=== PATIENT | female | born 1930 | race Caucasian/White ===

== ENCOUNTER → 2016-08-09 | Outpatient (CLI) | payer MEDICARE, BC ==
[~2016-08-09] MED LIST: ANTASUS OR; ASPI325T PO; ATEN-100 PO; CALA240T PO; GNP50LIQ PO; LOVA1TAB47 PO; PANT40P IV; PURELAX; VALS160T4 PO
[2016-08-09 13:44] LABS: BLOOD UREA NITROGEN 13 MG/DL (7-18); GLOMERULAR FILTRATION RATE 81 ML/MIN (>89)
[2016-08-09 13:45] LABS: ALKALINE PHOSPHATASE 75 U/L (45-117); ALT (GPT) 17 U/L (10-53); AST (GOT) 6 U/L (15-37); CHLORIDE 95 MEQ/L (98-107); GLUCOSE,FASTING 98 MG/DL (74-99); POTASSIUM 4.5 MEQ/L (3.5-5.1); SODIUM (NA) 130 MEQ/L (136-145); TOTAL BILIRUBIN ADULT 0.4 MG/DL (0.2-1.0)
[2016-08-09 13:46] LABS: ANION GAP 9 MEQ/L (5-15); BICARBONATE 26.1 MEQ/L (21.0-32.0); HDL CHOLESTEROL 73.7 MG/DL (40.0-60.0); LDL CHOLESTEROL 88 MG/DL (0-99)
== END ==
LOC: ELAB 08:35
PROVIDERS: ATTEND Family Medicine
DX: E78.2 Mixed hyperlipidemia (principal)
CPT/HCPCS: 36415; 80053; 80061

== ENCOUNTER → 2016-12-29 | Outpatient (CLI) | payer MEDICARE, BC | LOC: ELAB 10:45 | PROVIDERS: ATTEND Family Medicine | DX: M79.674 Pain in right toe(s) (principal) | CPT/HCPCS: 36415; 84550 ==

== ENCOUNTER 2017-10-12 09:55 | Inpatient (IN) | payer MEDICARE, BC ==
[~2017-10-12] VITALS: Ht 154.9 cm; Wt 70.1 kg
[~2017-10-12 09:55] MED LIST changes: -PANT40P IV; +PANT40P PO
[2017-10-12 10:54] VITALS: BP 197/78; PULSE 76; RESP 18; TEMP 97.7; O2SAT 94
[2017-10-12] MEDS ORDERED: LIDOCAINE HCL 1% 20 ML VIAL ONE (11:29)
[2017-10-12 12:00] VITALS: BP 167/79; PULSE 79; RESP 17; TEMP 98.7; O2SAT 95
--- NOTE | 2017-10-12 12:02 | RADRPT ---
EXAM DATE/TIME: 10/12/2017 11:40 [facility] COMPARISON: No previous studies available for comparison. INDICATIONS : Post right side thoracentesis MEDICAL HISTORY : Carcinoma, esophageal. SURGICAL HISTORY : port from past chemotherapy for esophageal cancer ENCOUNTER: Initial ACUITY: 1 day PAIN SCORE: 0/10 LOCATION: Bilateral cranial FINDINGS: Moderate pneumothorax on the right. The lung is probably trapped and well-expanded. We'll follow with chest x-ray. CONCLUSION: Probable trapped lung on the right. Dany Arredondo MD FACR on October 12, 2017 at 11:57 Board Certified Radiologist. This report was verified electronically.
[2017-10-12 12:15] VITALS: BP 163/74; PULSE 82; RESP 18; O2SAT 96
--- NOTE | 2017-10-12 12:50 | RADRPT ---
EXAM DATE/TIME: 10/12/2017 10:46 [facility] COMPARISON: No previous studies available for comparison. EXTERNAL COMPARISON: [facility], CT Chest, Oct 10 2017. INDICATIONS : Right pleural effusion. MEDICAL HISTORY : Hypertension. Hypercholesterolemia. Malignant neoplasm of other specified part of esophagus. Heart murmur. Urinary incontinence. Osteoporosis. Degeneration of lumbosacral intervertebral disc. SURGICAL HISTORY : Appendectomy. Tonsillectomy. Fusion, cervical. Adenoidectomy. Gastrointestinal surgery. ENCOUNTER: Initial ACUITY: 1 day PAIN SCORE: 0/10 LOCATION: Right chest FLUID: Total volume of 1550 cc of clear, yellow fluid was removed. Fluid was sent to lab for ordered studies. TECHNIQUE: 1. Ultrasound guidance for thoracentesis. 2. Thoracentesis. The risks, benefits, and alternatives to ultrasound guided thoracentesis were explained to the patien t in lay simple terms, including the risk of bleeding and infection. Written and verbal informed con sent was obtained. Appropriate area for thoracentesis was marked under ultrasound guidance with the patient in the uprig ht position. Overlying skin was prepped and draped in the usual sterile fashion and with local anest hetic, a dermatotomy was made with an 11 blade scalpel. A 6 Indian thoracentesis catheter was placed in the pleural space and fluid was removed. Catheter was then removed and a sterile dressing applie d. There were no immediate complications. The patient tolerated the procedure well and the left the ultrasound suite in stable condition. Chest radiograph is to be obtained. CONCLUSION: Uncomplicated ultrasound guided thoracentesis. The right lung has not reexpanded. Decision will be made to try to re\re expansion centrally with day chest tube. Dany Arredondo MD FACR on October 12, 2017 at 12:46 Board Certified Radiologist. This report was verified electronically.
--- NOTE | 2017-10-12 15:22 | RADRPT ---
EXAM DATE/TIME: 10/12/2017 13:19 [facility] COMPARISON: CHEST EXPIRATION ONLY, October 12, 2017, 11:40. INDICATIONS : Status post right thoracentesis. MEDICAL HISTORY : Hypertension. Carcinoma, esophageal. SURGICAL HISTORY : Infuse a port placement. ENCOUNTER: Subsequent ACUITY: 1 day PAIN SCORE: 0/10 LOCATION: Right chest FINDINGS: Expiratory chest reveals an a right lung base the pleural line and large pneumothorax. This is not c hanged in 90 minutes. After long discussion the patient and Dr. Sampson plan is to place the small bore chest tube on the righ t to gradually reinflate the right lung . If the right lung does fully reexpanded we should conside r pleruodesis CONCLUSION: Large right pneumothorax as above. Dany Arredondo MD FACR on October 12, 2017 at 15:17 Board Certified Radiologist. This report was verified electronically.
[2017-10-12 19:30] VITALS: BP 161/85; PULSE 72; RESP 17; TEMP 97.3; O2SAT 92
[2017-10-12] MEDS ORDERED: ONDANSETRON HCL 4 MG/2 ML VIAL IVP PRN (19:45)
[2017-10-12] MEDS ORDERED: ACETAMINOPHEN 325 MG TAB PO PRN (19:45)
[2017-10-12] MEDS ORDERED: MORPHINE SULFATE 4 MG/ML INJ IV PUSH PRN (19:45)
[2017-10-12] MEDS ORDERED: SODIUM CHLORIDE 0.9% FLUSH 10 ML FLUSH IV FLUSH PRN (19:45)
[2017-10-12] MEDS ORDERED: NALOXONE HCL 0.4 MG/ML AMP IV PUSH PRN (19:45)
[2017-10-12] MEDS ORDERED: ACETAMINOPHEN/HYDROcodone 325 MG/5 MG TAB PO PRN (19:45)
--- NOTE | 2017-10-12 20:34 | PD.CONS ---
[facility] By Dr. Arredondo Reason for Consult Medical management Primary Care Physician aDnny Sampson MD Diagnoses: History of Present Illness 87 y/o female with a history of esophageal cancer and HTN was sent for a thoracentesis in outpatient, unfortunately she suffered a pneumothorax and required a chest tube placement. [facility] was consulted for medical management. Patient states for the last month she has been feeling lousy, somewhat short of breath. She was worked up by her PCP and found to have fluid on her lung and was sent to [facility] for a thoracentesis. Chest tube was placed and patient was admitted. Patient states her pain to the chest tube site in intermittent, stabbing, sharp, 6/10, with no radiation or associated symptoms and is worse with movement and deep breath. She just received and [place] and states is has not helped much yet. She denies any chest pain, fevers or chills. Review of Systems Except as stated in HPI: all other systems reviewed are Neg Past Family Social History Allergies: Coded Allergies: Sulfa (Sulfonamide Antibiotics) (Verified Allergy, Intermediate, 10/12/17) clindamycin (Verified Allergy, Intermediate, 10/12/17) penicillin G (Verified Allergy, Intermediate, 10/12/17) Past Medical History Chronic back pain HTN HLD GERD Past Surgical History Tonsillectomy Reported Medications Reported Meds & Active Scripts Active Reported Stool Softener (Docusate Sodium) 50 Mg/5 Ml Liq 50 Mg PO DAILY Antacid Regular Strength (Alum & Mag Hydrox-Simethicone) Reg St Ana 1 St OR [Purelax] Aspirin 325 Mg Tab 325 Mg PO DAILY Valsartan/Hydrochlorothia (Valsartan-Hydrochlorothiazide) 1 Tab Tab 1 Tab PO DAILY Protonix (Pantoprazole Sodium) 40 Mg Inj 40 Mg IV DAILY Atenolol 25 Mg Tab 25 Mg PO BID Lovastatin 20 Mg Tab 20 Mg PO HS Verapamil Hcl Er (Verapamil HCl) 240 Mg Tab 240 Mg PO DAILY Active Ordered Medications Current Medications Medications (Trade) Dose Ordered Sig/Tiffany Route Start Time Stop Time Status Last Admin (NS Flush) 2 ml UNSCH PRN IV FLUSH 10/12/17 19:45 (NS Flush) 2 ml BID IV FLUSH 10/12/17 21:00 10/12/17 21:36 (Tylenol) 650 mg Q4H PRN PO 10/12/17 19:45 (Zofran Inj) 4 mg Q6H PRN IVP 10/12/17 19:45 (Narcan Inj) 0.4 mg UNSCH PRN IV PUSH 10/12/17 19:45 (Percocet 5-325 Mg) 1 tab Q4H PRN PO 10/12/17 22:00 (Percocet 10-325 Mg) 1 tab Q4H PRN PO 10/12/17 22:00 (Morphine Inj) 2 mg Q3H PRN IV PUSH 10/12/17 22:00 Family History Mom and dad: Heart disease Social History Quit tobacco and alcohol 30 years ago Physical Exam Vital Signs Vital Signs Date Time Temp Pulse Resp B/P (MAP) Pulse Ox O2 Delivery O2 Flow Rate FiO2 10/12/17 12:15 82 18 163/74 (103) 96 10/12/17 12:00 98.7 79 17 167/79 (108) 95 10/12/17 10:54 97.7 76 18 197/78 (117) 94 Physical Exam GENERAL: This is a well-nourished, well-developed patient, in no apparent distress. SKIN: No rashes, ecchymoses or lesions. Cool and dry. HEAD: Atraumatic. Normocephalic. EYES: Pupils equal round and reactive. Extraocular motions intact. ENT: Nose without bleeding, purulent drainage or septal hematoma. Airway patent. CARDIOVASCULAR: Regular rate and rhythm without murmurs, gallops, or rubs. RESPIRATORY: Diminished right upper lobe, pigtail chest tube to 40 suction with serosanguineous fluid, no wheezes GASTROINTESTINAL: Abdomen soft, non-tender, nondistended. No hepato-splenomegaly , or palpable masses. MUSCULOSKELETAL: Extremities without clubbing, cyanosis, or edema. No joint tenderness, effusion, or edema noted. No calf tenderness. NEUROLOGICAL: Awake and alert. Motor and sensory grossly within normal limits. Normal speech. Laboratory Laboratory Tests Test 10/12/17 11:25 Pleural Fluid Total Protein 3.9 Date/Time Source Procedure Growth Status 10/12/17 11:25 Fluid Pleural Fluid Acid Fast Stain Pending Received 10/12/17 11:25 Fluid Pleural Fluid Mycobacterial Culture Pending Received Imaging Assessment and Plan Problem List: (1) Pneumothorax ICD Code: J93.9 - Pneumothorax, unspecified (2) HTN (hypertension) ICD Code: I10 - Essential (primary) hypertension (3) HLD (hyperlipidemia) ICD Code: E78.5 - Hyperlipidemia, unspecified Assessment and Plan 87 y/o female with a history of esophageal cancer and HTN was sent for a thoracentesis in outpatient, unfortunately she suffered a pneumothorax and required a chest tube placement. Pneumothorax s/p thorocentesis Chest x ray reviewed and shows a large right pneumothorax -Chest tube inserted by interventional radiology on 10/12 hooked to 40 of suction, will be managed by radiology -pain management with Percocet and IV morphine -Incentive spirometry HTN, chronic -Resume home medications, monitor vitals HLD, chronic -Resume home medications -Heart healthy diet DVT prophylaxis: SCDs Discussed Condition With Patient and RN Delma Salter Oct 12, 2017 20:34
[2017-10-12] MEDS: SODIUM CHLORIDE 0.9% FLUSH 10 ML FLUSH IV FLUSH SCH (21:36)
[2017-10-12] MEDS ORDERED: MORPHINE SULFATE 2 MG/ML SYRINGE IV PUSH PRN (22:00)
[2017-10-12] MEDS ORDERED: oxyCODONE/ACETAMINOPHEN 5 MG/325 MG TAB PO PRN (22:00)
[2017-10-12] MEDS ORDERED: oxyCODONE/ACETAMINOPHEN 10 MG/325 MG TAB PO PRN (22:00)
[2017-10-12 23:30] VITALS: BP 137/62; PULSE 66; RESP 17; TEMP 97.6; O2SAT 92
[2017-10-13] MEDS: ATENOLOL 25 MG TAB PO SCH ×3 (00:15→20:16)
[2017-10-13] MEDS: PRAVASTATIN SOD 20 MG TAB PO SCH ×2 (00:15→20:16)
[2017-10-13 03:06] VITALS: BP 170/70; PULSE 70; RESP 17; TEMP 97.5; O2SAT 92
--- NOTE | 2017-10-13 05:30 | RADRPT ---
EXAM DATE/TIME: 10/13/2017 04:16 [facility] COMPARISON: CHEST EXPIRATION ONLY, October 12, 2017, 11:40. CHEST EXPIRATION ONLY, October 12, 2017, 13:19. INDICATIONS : Evaluate pneumothorax MEDICAL HISTORY : Hypertension. Carcinoma, esophageal. SURGICAL HISTORY : Infusa port placement. ENCOUNTER: Subsequent ACUITY: 2 days PAIN SCORE: 5/10 LOCATION: Right chest FINDINGS: A right chest tube is in place with decreasing right pneumothorax. There continues to be a component at the right base as well as at the right apex. There is subsegmental atelectasis in the both bases. [id number] is in place via left subclavian approach with its tip in the superior vena cava. Ther e are no signs of tension. CONCLUSION: 1. Right chest tube placement with decreasing right pneumothorax. There are no signs of tension. Raul Cruz MD on October 13, 2017 at 5:26 Board Certified Radiologist. This report was verified electronically.
[2017-10-13 07:21] VITALS: BP 164/68; PULSE 72; RESP 17; TEMP 97.9; O2SAT 94
[2017-10-13 07:57] LABS: AUTOMATED NEUTROPHIL # 5.7 TH/MM3 (1.8-7.7); BASOPHIL # 0.1 TH/MM3 (0-0.2); BASOPHIL % 0.9 % (0.0-2.0); EOSINOPHIL # 0.1 TH/MM3 (0-0.4); EOSINOPHIL % 1.4 % (0.0-4.0); HEMATOCRIT 33.1 % (35.0-46.0); HEMOGLOBIN 11.1 GM/DL (11.6-15.3); LYMPH % 17.9 % (9.0-44.0); LYMPHOCYTE # 1.5 TH/MM3 (1.0-4.8); MEAN CELL VOLUME 89.1 FL (80.0-100.0); MEAN CORPUSCULAR HEMOGLOBIN 29.9 PG (27.0-34.0); MEAN CORPUSCULAR HGB CONC 33.6 % (32.0-36.0); MEAN PLATELET VOLUME 8.3 FL (7.0-11.0); MONO % 10.5 % (0.0-8.0); MONOCYTE # 0.9 TH/MM3 (0-0.9); NEUT % 69.3 % (16.0-70.0); PLATELET COUNT 215 TH/MM3 (150-450); RED BLOOD COUNT 3.71 MIL/MM3 (4.00-5.30); RED CELL DISTRIBUTION WIDTH 17.4 % (11.6-17.2); WHITE BLOOD COUNT 8.2 TH/MM3 (4.0-11.0)
[2017-10-13 08:15] LABS: BICARBONATE 25.1 MEQ/L (21.0-32.0); CALCIUM 8.7 MG/DL (8.5-10.1); CREATININE 0.63 MG/DL (0.50-1.00)
[2017-10-13] MEDS ORDERED: VALSARTAN HYDROCHLOROTHIAZIDE PO SCH (09:00)
[2017-10-13] MEDS: VERAPAMIL HCL 240 MG SUSTAINED RELEASE TAB PO SCH (09:05)
[2017-10-13] MEDS: SODIUM CHLORIDE 0.9% FLUSH 10 ML FLUSH IV FLUSH SCH ×2 (09:05→20:17)
--- NOTE | 2017-10-13 09:37 | RADRPT ---
EXAM DATE/TIME: 10/13/2017 08:55 [facility] COMPARISON: No previous studies available for comparison. INDICATIONS : Right sided chest tube came out. Evaluate for pneumothorax. MEDICAL HISTORY : None. : Hypertension. Carcinoma, esophageal. SURGICAL HISTORY : Infusa port placement. ENCOUNTER: Subsequent ACUITY: 2 days PAIN SCORE: 4/10 LOCATION: Right Chest. FINDINGS: 1.1 cm apical right pneumothorax. Minimal stable peripheral changes right base.. Left lung is clear . Its port in good position. CONCLUSION: Small pneumothorax on the right without chest tube. Followup chest x-ray is pending. Dany Arredondo MD FACR on October 13, 2017 at 9:34 Board Certified Radiologist. This report was verified electronically.
--- NOTE | 2017-10-13 14:23 | RADRPT ---
EXAM DATE/TIME: 10/13/2017 13:53 [facility] COMPARISON: CHEST EXPIRATION ONLY, October 13, 2017, 4:16. CHEST TUBE PLACEMENT, RIGHT, October 12, 2017, 16:39. CH EST EXPIRATION ONLY, October 12, 2017, 13:19. US GUIDED THORACENTESIS RIGHT, October 12, 2017, 10:46. C HEST EXPIRATION ONLY, October 12, 2017, 11:40. CHEST SINGLE AP, October 13, 2017, 8:55. INDICATIONS : Short of breath. MEDICAL HISTORY : None. : Hypertension. Carcinoma, esophageal. SURGICAL HISTORY : Infusa port placement. ENCOUNTER: [facility] ACUITY: 2 days PAIN SCORE: 4/10 LOCATION: Right chest FINDINGS: There is been slight interval increase in right apical pneumothorax with about 24 mm separation of ap ical pleural layers on the current exam. The there is persistent small right base infiltrate and pleu ral effusion. Contralateral left lung is stable and expanded. Left port is stable. Cardiac contours a re unchanged. CONCLUSION: Some interval increase in right pneumothorax. Gerardo Lackey MD on October 13, 2017 at 14:17 Board Certified Radiologist. This report was verified electronically.
[2017-10-13 16:00] VITALS: BP 146/59; RESP 16; TEMP 97.3; O2SAT 96
--- NOTE | 2017-10-13 16:18 | HHI.PR ---
Subjective Remarks The patien tis n bed she appears to not acute distress. She is breathing well on room air. She denies any shortness of breath or chest pain at this time. She accidentally pulled the chest tube in the morning. Says she feels good. No wheezing. No cough. No nausea vomiting no diarrhea or constipation. Objective Vitals Vital Signs Date Time Temp Pulse Resp B/P (MAP) Pulse Ox O2 Delivery O2 Flow Rate FiO2 10/13/17 14:41 91 Nasal Cannula 2.00 10/13/17 07:21 97.9 72 17 164/68 (100) 94 10/13/17 03:06 97.5 70 17 170/70 (103) 92 10/12/17 23:30 97.6 66 17 137/62 (87) 92 10/12/17 19:30 97.3 72 17 161/85 (110) 92 I/O 10/12/17 10/12/17 10/12/17 10/13/17 10/13/17 10/13/17 07:00 15:00 23:00 07:00 15:00 23:00 Intake Total 480 ml Output Total 160 ml 10 ml Balance -160 ml 470 ml Intake Oral 480 ml Output Chest Tube Drainage Total 160 ml 10 ml # Voids 4 # Bowel Movements 0 Result Diagram: 10/13/17 0712 10/13/17 0712 Imaging Last Impressions Chest X-Ray 10/13/17 0600 Signed Impressions: Service Date/Time: Friday, October 13, 2017 04:16 - CONCLUSION: 1. Right chest tube placement with decreasing right pneumothorax. There are no signs of tension. Raul Cruz MD Thoracentesis Ultrasound 10/12/17 0000 Signed Impressions: Service Date/Time: Thursday, October 12, 2017 10:46 - CONCLUSION: Uncomplicated ultrasound guided thoracentesis. The right lung has not reexpanded. Decision will be made to try to re\re expansion centrally with day chest tube. Dany Arredondo MD FACR Objective Remarks GENERAL: This is a well-nourished, well-developed patient, in no apparent distress. SKIN: No rashes, ecchymoses or lesions. Cool and dry. HEAD: Atraumatic. Normocephalic. EYES: Pupils equal round and reactive. Extraocular motions intact. ENT: Nose without bleeding, purulent drainage or septal hematoma. Airway patent. CARDIOVASCULAR: Regular rate and rhythm without murmurs, gallops, or rubs. RESPIRATORY: Diminished breath sounds right upper lobe, chest tube was accidentally removed by patient, dressing c/d/di. No wheezes GASTROINTESTINAL: Abdomen soft, non-tender, nondistended. No hepato-splenomegaly , or palpable masses. MUSCULOSKELETAL: Extremities without clubbing, cyanosis, or edema. No joint tenderness, effusion, or edema noted. No calf tenderness. NEUROLOGICAL: Awake and alert. Motor and sensory grossly within normal limits. Normal speech. A/P Problem List: (1) Pneumothorax ICD Code: J93.9 - Pneumothorax, unspecified (2) HTN (hypertension) ICD Code: I10 - Essential (primary) hypertension (3) HLD (hyperlipidemia) ICD Code: E78.5 - Hyperlipidemia, unspecified Assessment and Plan 87 y/o female with a history of esophageal cancer and HTN was sent for a thoracentesis in outpatient, unfortunately she suffered a pneumothorax and required a chest tube placement. Pneumothorax s/p thoracentesis -Chest tube was placed on 10/12 to suction, managed by radiology. However patient pulled the chest tube by mistake cdl program coordinator 10/13. CxR reviewed and findings discussed with Dr Arredondo. Dr Arredondo reevaluated patient. Discussed with Dr Arredondo. Will repast CXR later this afternoon and decide if patient needs chest tube again. If stable can DC patient per Dr Arredondo. The patient is saturating well while on room air and does not appear short of breath, she is in not acute distress at this time. -pain management with Percocet and IV morphine -Incentive spirometry HTN, chronic -Resume home medications, monitor vitals HLD, chronic -Resume home medications -Heart healthy diet DVT prophylaxis: SCDs Discussed Condition With Patient, nurse, Dr Arredondo IR DC plan poss DC if repeat CXR is stable. Dr Arredondo will call if patient is cleared for DC. Johnna Vasquez MD Oct 13, 2017 16:18
--- NOTE | 2017-10-13 16:23 | HHI.DS ---
Discharge Summary Admission Date Discharge Date: Oct 14, 2017 Admitting Diagnosis (1) Pneumothorax ICD Code: J93.9 - Pneumothorax, unspecified (2) HTN (hypertension) ICD Code: I10 - Essential (primary) hypertension (3) HLD (hyperlipidemia) ICD Code: E78.5 - Hyperlipidemia, unspecified Procedures Ct placement Brief History - From Admission 87 y/o female with a history of esophageal cancer and HTN was sent for a thoracentesis in outpatient, unfortunately she suffered a pneumothorax and required a chest tube placement. [facility] was consulted for medical management. Patient states for the last month she has been feeling lousy, somewhat short of breath. She was worked up by her PCP and found to have fluid on her lung and was sent to [facility] for a thoracentesis. Chest tube was placed and patient was admitted. Patient states her pain to the chest tube site in intermittent, stabbing, sharp, 6/10, with no radiation or associated symptoms and is worse with movement and deep breath. She just received and [place] and states is has not helped much yet. She denies any chest pain, fevers or chills. CBC/BMP: 10/13/17 0712 10/13/17 0712 Significant Findings Laboratory Tests Test 10/12/17 11:25 10/13/17 07:12 Red Blood Count 3.71 MIL/MM3 (4.00-5.30) Hemoglobin 11.1 GM/DL (11.6-15.3) Hematocrit 33.1 % (35.0-46.0) Red Cell Distribution Width 17.4 % (11.6-17.2) Monocytes (%) (Auto) 10.5 % (0.0-8.0) Potassium Level 3.1 MEQ/L (3.5-5.1) Imaging Last Impressions Chest X-Ray 10/14/17 0000 Signed Impressions: Service Date/Time: Saturday, October 14, 2017 09:53 - CONCLUSION: Pneumothorax stable. Slightly more fluid. Dany Arredondo MD FACR Thoracentesis Ultrasound 10/12/17 0000 Signed Impressions: Service Date/Time: Thursday, October 12, 2017 10:46 - CONCLUSION: Uncomplicated ultrasound guided thoracentesis. The right lung has not reexpanded. Decision will be made to try to re\re expansion centrally with day chest tube. Dany Arredondo MD FACR Chest Tube Insertion 10/12/17 0000 Signed Impressions: Service Date/Time: Thursday, October 12, 2017 16:39 - CONCLUSION: Uncomplicated chest tube placement as above. dE Hannon MD PE at Discharge GENERAL: This is a well-nourished, well-developed patient, in no apparent distress. SKIN: No rashes, ecchymoses or lesions. Cool and dry. HEAD: Atraumatic. Normocephalic. EYES: Pupils equal round and reactive. Extraocular motions intact. ENT: Nose without bleeding, purulent drainage or septal hematoma. Airway patent. CARDIOVASCULAR: Regular rate and rhythm without murmurs, gallops, or rubs. RESPIRATORY: Diminished breath sounds right upper lobe, chest tube was accidentally removed by patient, dressing c/d/di. No wheezes GASTROINTESTINAL: Abdomen soft, non-tender, nondistended. No hepato-splenomegaly , or palpable masses. MUSCULOSKELETAL: Extremities without clubbing, cyanosis, or edema. No joint tenderness, effusion, or edema noted. No calf tenderness. NEUROLOGICAL: Awake and alert. Motor and sensory grossly within normal limits. Normal speech. Pt update on day of discharge Feels much better no shortness of breath. She is saturating well on room air. Seen by Dr. Arredondo IR and a repeat chest x-ray reviewed and he cleared patient for discharge also discussed to follow-up with her primary care doctor as outpatient. Hospital Course 87 y/o female with a history of esophageal cancer and HTN was sent for a thoracentesis in outpatient, unfortunately she suffered a pneumothorax and required a chest tube placement. Pneumothorax s/p thoracentesis Chest tube was placed on 10/12 to suction, managed by radiology. However patient pulled the chest tube by mistake applied researcher 10/13. CxR reviewed and findings discussed with Dr Arredondo. Dr Arredondo reevaluated patient. Discussed with Dr Arredondo. Will repast CXR later this afternoon and decide if patient needs chest tube again. If stable can DC patient per Dr Arredondo. The patient is saturating well while on room air and does not appear short of breath, she is in not acute distress at this time. Pain management with Percocet and IV morphine Incentive spirometry HTN, chronic -Resume home medications, monitor vitals HLD, chronic Resume home medications -Heart healthy diet DVT prophylaxis: SCDs Discussed Condition With Patient, nurse, Dr Arredondo IR repeat CXR is stable. Discussed with Dr Arredondo from IR cleared the patient for discharge. Patient is saturating well on room air. Patient to follow-up with her PCP Dr. Ball. Pt Condition on Discharge: Stable Discharge Disposition: Discharge Home Discharge Time: > 30 minutes Discharge Instructions DIET: Follow Instructions for: Heart Healthy Diet Activities you can perform: Regular-No Restrictions Follow up Referrals: PCP Follow-up - 2-3 Days PCP Follow-up @ DR. RODRIGUEZ Continued Medications: Alum & Mag Hydrox-Simethicone (Antacid Regular Strength) Reg St Ana 1 ST OR Atenolol (Atenolol) 25 Mg Tab 25 MG PO BID Docusate Sodium (Stool Softener) 50 Mg/5 Ml Liq 50 MG PO DAILY Lovastatin (Lovastatin) 20 Mg Tab 20 MG PO HS Pantoprazole Sodium (Protonix) 40 Mg Inj 40 MG PO DAILY Valsartan-Hydrochlorothiazide (Valsartan/Hydrochlorothia) 1 Tab Tab 1 TAB PO DAILY, #2 Verapamil Hcl (Verapamil Hcl Er) 240 Mg Tab 240 MG PO DAILY [Purelax] () Johnna Vasquez MD Oct 13, 2017 16:23
--- NOTE | 2017-10-13 17:16 | RADRPT ---
EXAM DATE/TIME: 10/13/2017 16:51 [facility] COMPARISON: No previous studies available for comparison. INDICATIONS : Follow-up pneumothorax. MEDICAL HISTORY : Hypertension. Carcinoma, esophageal. SURGICAL HISTORY : Infusa port placement. ENCOUNTER: Subsequent ACUITY: 2 days PAIN SCORE: 0/10 LOCATION: Bilateral chest FINDINGS: There is persistence of right apical pneumothorax with slight increase from earlier exam. There is ab out 2.8 cm separation of apical pleural layers on the current study. Small right effusion and recurre nt. Left lung is grossly stable. Cardiac contour stable. CONCLUSION: Slight interval increase in size of right apical pneumothorax Gerardo Lackey MD on October 13, 2017 at 17:14 Board Certified Radiologist. This report was verified electronically.
--- NOTE | 2017-10-13 17:43 | PD.RAD ---
Radiology Note Pt has mild right chest pain. No SOB. VSS. Persistent R PTX post large volume thoracentesis. Likely sequestered lung. Will re-check in AM. Specials call is aware and will f/u. Gerardo Lackey MD Oct 13, 2017 17:43
[2017-10-13 20:15] VITALS: BP 126/56; PULSE 61; RESP 18; TEMP 97.7; O2SAT 95
[2017-10-13 23:35] VITALS: BP 145/63; PULSE 71; RESP 17; TEMP 98.1; O2SAT 96
--- NOTE | 2017-10-14 04:10 | RADRPT ---
EXAM DATE/TIME: 10/12/2017 16:39 [facility] COMPARISON: CHEST EXPIRATION ONLY, October 13, 2017, 16:51. INDICATIONS : Patient presents with right side pneumothorax in need of chest tube placement. MEDICAL HISTORY : HTN Heart murmur Esophageal cancer Hyperlipidemia SURGICAL HISTORY : Appendectomy Tonsillectomy Adenoidectomy Back surgery ENCOUNTER: Initial ACUITY: 1 day PAIN SCORE: 0/10 LOCATION: N/A FLUORO TIME: 0.5 minutes IMAGE SERIES: 0 MEDICATION(S): 1.) 100 mcg fentanyl (Sublimaze) IV DEVICE(S): 1.) 10 Frisian non-locking catheter 30CM [employer] NOTE: Patient only received fentanyl for procedure.ALEISHA FELIX MR#:[id number] Exam Dt/D esc: October 12, 2017CHEST TUBE PLACEMENT, RIGHT PROCEDURE : 1. Fluoroscopically guided chest tube placement. 2. Conscious sedation with continuous EKG and oximetry monitoring. The risks, benefits and alternatives to the procedure were explained and verbal and written consent w as obtained. The site was prepped in sterile fashion. Full sterile technique was used, including ca p, mask, sterile gloves and gown and a large sterile sheet. Hand hygiene and 2% chlorhexidine and/or betadine/alcohol prep was utilized per protocol for cutaneous antisepsis. The skin and subcutaneous tissues were infiltrated with local anesthetic solution. With fluoroscopic guidance the chest was punctured between the first and second interspace and the pr escribed catheter was placed in the lung apex. Wall suction was applied. Post procedure images demon strate satisfactory position of the tube. The catheter was sutured in place and a Percu-Stay was alida lied. Conscious sedation was performed with the prescribed dosages and duration as above in the presence of an independent trained radiology nurse to assist in the monitoring of the patient. EKG and oximetry remained stable throughout the procedure. The patient tolerated the procedure well and there were n o complications. The patient was sent to post anesthesia recovery in stable condition. CONCLUSION: Uncomplicated chest tube placement as above. Ed Hannon MD on October 14, 2017 at 4:08 Board Certified Radiologist. This report was verified electronically.
[2017-10-14 04:40] VITALS: BP 119/58; PULSE 62; RESP 16; TEMP 97.8; O2SAT 95
[2017-10-14 08:00] VITALS: BP 138/63; PULSE 68; RESP 18; TEMP 98.1; O2SAT 95
[2017-10-14] MEDS: SODIUM CHLORIDE 0.9% FLUSH 10 ML FLUSH IV FLUSH SCH (08:49)
[2017-10-14] MEDS: ATENOLOL 25 MG TAB PO SCH (08:49)
[2017-10-14] MEDS: VERAPAMIL HCL 240 MG SUSTAINED RELEASE TAB PO SCH (08:49)
--- NOTE | 2017-10-14 10:05 | RADRPT ---
EXAM DATE/TIME: 10/14/2017 09:53 [place] COMPARISON: CHEST EXPIRATION ONLY, October 13, 2017, 16:51. INDICATIONS : Short of breath MEDICAL HISTORY : Hypertension. Carcinoma, esophageal SURGICAL HISTORY : Infusa port placement ENCOUNTER: Sequela ACUITY: 3 days PAIN SCORE: 0/10 LOCATION: chest FINDINGS: Small pneumothorax is stable. Fluid is increasing slowly in the right lung as expected. The support is in good position. The heart and pulmonary vascularity are normal. Stable small right pneumothorax. Diffusion slowly increasing. Will discuss with Dr. Sampson for long-term plan for this reaccumulation. CONCLUSION: Pneumothorax stable. Slightly more fluid. Dany Arredondo MD FACR on October 14, 2017 at 9:56 Board Certified Radiologist. This report was verified electronically.
== END 2017-10-14 11:09 | disposition home or self-care (01) | DRG 201 ==
LOC: HRIP 09:55 → HRAD 09:55 → N06A 17:20 → HRAD 10-14 11:09 → N06A 10-14 11:09
PROVIDERS: ADMIT Hospitalist; ATTEND Hospitalist
PROC: 0W9930Z Drainage of Right Pleural Cavity with Drainage Device, Percutaneous Approach (ICD-10-PCS; principal; 2017-10-12)
PROC: 0W993ZZ Drainage of Right Pleural Cavity, Percutaneous Approach (ICD-10-PCS; 2017-10-12)
DX: J95.811 Postprocedural pneumothorax (principal); I10 Essential (primary) hypertension; E78.5 Hyperlipidemia, unspecified; K21.9 Gastro-esophageal reflux disease without esophagitis; G89.29 Other chronic pain; M54.9 Dorsalgia, unspecified; Y84.8 Other medical procedures as the cause of abnormal reaction of the patient, or of later complication, without mention of misadventure at the time of the procedure; Z87.891 Personal history of nicotine dependence; Z85.01 Personal history of malignant neoplasm of esophagus
CPT/HCPCS: 32555; 32557; 71045; 80048; 84157; 85025; 87015; 87116; 87206; 88112; 88305; 99152; C1729; C1769; J3010

== ENCOUNTER 2017-12-11 15:41 | Inpatient (IN) | payer MEDICARE, BC ==
[2017-12-11] VITALS (8 sets, daily range): BP systolic 159–212; BP diastolic 72–97; PULSE 80–92; RESP 14–24; TEMP 97.3–98.5; O2SAT 86–100
[~2017-12-11] VITALS: Ht 152.4 cm; Wt 43.6 kg
[~2017-12-11 15:41] MED LIST changes: -ASPI325T PO
[2017-12-11] MEDS ORDERED: LOVA20TA PO (16:26)
[2017-12-11] MEDS ORDERED: META48.53 PO (16:26)
[2017-12-11] MEDS ORDERED: PANT40TA3 PO (16:26)
[2017-12-11] MEDS ORDERED: VERA1TAB17 PO (16:26)
[2017-12-11] MEDS ORDERED: LISI10TA PO (16:26)
[2017-12-11] MEDS ORDERED: ZANT150T2 PO (16:26)
[2017-12-11] MEDS ORDERED: ATEN25TA PO (16:26)
[2017-12-11] MEDS ORDERED: CALCTAB98 PO (16:26)
--- NOTE | 2017-12-11 16:27 | PD ---
HPI Chief Complaint: Respiratory Symptoms Time Seen by Provider: 16:13 Travel History International Travel<30 days: No Contact w/Intl Traveler<30days: No Traveled to known affect area: No History of Present Illness HPI The patient is a 87-year-old female who presents to the emergency department for shortness of breath. The patient notes a history of shortness of breath over the last several months, was hospitalized in September for a pleural effusion and underwent subsequent thoracentesis. The patient states she has had increasing shortness of breath over the last several weeks, does note mild orthopnea, does sleep on a bed and in a recliner. She denies any chest pain or new cough. The patient denies any known history of congestive heart failure, COPD, or history of pulmonary embolism/DVT. She does note mild bilateral lower extremity edema over the last several weeks which she states is new. The patient does have a remote history of esophageal carcinoma, is followed by her oncologist, Dr. Marshall. She is also seen by her primary physician, Dr. Danny Sampson. Symptoms are moderate. Worse with activity. PFSH Past Medical History Arthritis: Yes Asthma: No Anxiety: Yes Depression: Yes Heart Rhythm Problems: No Cancer: Yes (esophageal) Cardiovascular Problems: Yes (elevated lipids,heart murmur) High Cholesterol: Yes Chemotherapy: Yes Chest Pain: No Congestive Heart Failure: No COPD: No Diabetes: No Endocrine: No GERD: Yes Genitourinary: No Hepatitis: No Hiatal Hernia: No Immune Disorder: No Musculoskeletal: Yes Neurologic: No Psychiatric: Yes Reproductive: No Respiratory: Yes Radiation Therapy: Yes Sleep Apnea: No Thyroid Disease: No Ulcer: No Past Surgical History Abdominal Surgery: Yes (appendectomy) AICD: No Arteriovenous Shunt: No Cardiac Surgery: No Ear Surgery: No Endocrine Surgery: No Eye Surgery: Yes (left cataract) Genitourinary Surgery: No Gynecologic Surgery: No Insulin Pump: No Joint Replacement: No Oral Surgery: No Pacemaker: No Thoracic Surgery: No Social History Tobacco Use: No Substance Use: No Allergies-Medications (Allergen,Severity, Reaction): Coded Allergies: Sulfa (Sulfonamide Antibiotics) (Verified Allergy, Intermediate, 12/11/17) clindamycin (Verified Allergy, Intermediate, 12/11/17) penicillin G (Verified Allergy, Intermediate, 12/11/17) Reported Meds & Prescriptions Reported Meds & Active Scripts Active Reported Zantac (Ranitidine HCl) 150 Mg Tab 150 Mg PO DAILY Metamucil Original Texture (Psyllium Hydrophilic Mucilloid) 3.4 Gram/7 Gram Pow 1 Scoop PO TID PRN 1 rounded TEASPOON in 8 oz of liquid at the first sign of irregularity. [Calcium] 800 Mg PO DAILY Lovastatin 20 Mg Tab 20 Mg PO HS Lisinopril-Hctz 10-12.5 Mg Tab 1 Tab PO DAILY Atenolol 25 Mg Tab 25 Mg PO BID Verapamil ER 24 HR (Verapamil HCl) 240 Mg Tab 240 Mg PO DAILY Pantoprazole (Pantoprazole Sodium) 40 Mg Tab 40 Mg PO DAILY Review of Systems Except as stated in HPI: all other systems reviewed are Neg General / Constitutional: No: Fever HENT: No: Lightheadedness Cardiovascular: Positive: Dyspnea on exertion, No: Chest Pain or Discomfort Respiratory: Positive: Shortness of Breath, No: Cough Gastrointestinal: No: Nausea, Vomiting, Abdominal Pain Musculoskeletal: Positive: Edema, No: Pain Neurologic: No: Dizziness Physical Exam Narrative GENERAL: Awake, alert, pleasant 87-year-old female who appears her stated age and is in mild respiratory distress. SKIN: Focused skin assessment warm/dry. HEAD: Atraumatic. Normocephalic. EYES: No injection or drainage. ENT: No nasal bleeding or discharge. Mucous membranes pink and moist. NECK: Trachea midline. No JVD. CARDIOVASCULAR: Regular rate and rhythm. No murmur appreciated. RESPIRATORY: No accessory muscle use. Diminished breath sounds in the right lung villalobos with crackles noted. GASTROINTESTINAL: Abdomen soft, non-tender, nondistended. No rebound tenderness. MUSCULOSKELETAL: No obvious deformities. No clubbing. No cyanosis. Bilateral lower extremity edema right greater than left. NEUROLOGICAL: Awake and alert. No obvious cranial nerve deficits. Motor grossly within normal limits. Normal speech. PSYCHIATRIC: Appropriate mood and affect; insight and judgment normal. Data Data Last Documented VS Vital Signs Date Time Temp Pulse Resp B/P (MAP) Pulse Ox O2 Delivery O2 Flow Rate FiO2 12/11/17 16:35 96 Nasal Cannula 3.00 12/11/17 16:20 91 16 196/92 (126) 12/11/17 16:08 98.5 Orders Orders Complete Blood Count With Diff (12/11/17 16:20) Comprehensive Metabolic Panel (12/11/17 16:20) B-Type Natriuretic Peptide (12/11/17 16:20) Magnesium (Mg) (12/11/17 16:20) Ckmb (Isoenzyme) Profile (12/11/17 16:20) Troponin I (12/11/17 16:20) Iv Access Insert/Monitor (12/11/17 16:20) Electrocardiogram (12/11/17 16:20) Ecg Monitoring (12/11/17 16:20) Oximetry (12/11/17 16:20) Oxygen Administration (12/11/17 16:20) Chest, Pa & Lat (12/11/17 16:20) Sodium Chloride 0.9% Flush (Ns Flush) (12/11/17 16:30) Cefepime Inj (Maxipime Inj) (12/11/17 17:30) Azithromycin Inj (Zithromax Inj) (12/11/17 17:30) Potassium Chloride (Kcl) (12/11/17 17:45) Aspirin Chew (Aspirin Chew) (12/11/17 17:45) Furosemide Inj (Lasix Inj) (12/11/17 17:45) Comprehensive Metabolic Panel (12/12/17 06:00) Free Thyroxine (T4) (12/12/17 06:00) Hemoglobin (Hgb) A1c (12/12/17 06:00) Magnesium (Mg) (12/12/17 06:00) Phosphorus (Po4) (12/12/17 06:00) Thyroid Stimulating Hormone (12/12/17 06:00) Complete Blood Count With Diff (12/12/17 06:00) Clonidine (Catapres) (12/11/17 18:15) Admit To Inpatient (12/11/17 ) Code Status (12/11/17 18:02) Vital Signs (Adult) Q4H (12/11/17 18:02) Neuro Checks Q4H (12/11/17 18:02) Activity Oob With Assistance (12/11/17 18:02) Tumbling Barrel Painter / Telemetry .CONTINUOUS (12/11/17 18:02) Intake + Output RAYNE.QSHIFT (12/11/17 18:02) Diet Heart Healthy (12/11/17 Dinner) Sodium Chloride 0.9% Flush (Ns Flush) (12/11/17 18:15) Sodium Chloride 0.9% Flush (Ns Flush) (12/11/17 21:00) Acetaminophen (Tylenol) (12/11/17 18:15) Ondansetron Inj (Zofran Inj) (12/11/17 18:15) Metoclopramide Inj (Reglan Inj) (12/11/17 18:15) Creatine Kinase (Cpk) (12/11/17 18:02) Creatine Kinase (Cpk) (12/12/17 00:02) Creatine Kinase (Cpk) (12/12/17 06:02) Troponin I (12/11/17 18:02) Troponin I (12/12/17 00:02) Troponin I (12/12/17 06:02) Electrocardiogram (12/11/17 18:02) Electrocardiogram (12/12/17 00:02) Resp Oxygen Jose Armando C Titrat 1-4 L (12/11/17 ) Pt Request For Service (12/11/17 18:02) Ot Request For Service (12/11/17 18:02) Case Management Consult (12/11/17 18:02) Enoxaparin Inj (Lovenox Inj) (12/11/17 18:15) Scd Bilateral/Knee High RAYNE.BID (12/11/17 18:02) Bijan Bilateral/Knee High RAYNE.QSHIFT (12/11/17 18:15) Acetaminophen (Tylenol) (12/11/17 18:15) Oxycodone-Acetamin 5-325 Mg (Percocet (12/11/17 18:15) Oxycodone-Acetamin 10-325 Mg (Percocet 1 (12/11/17 18:15) Morphine Inj (Morphine Inj) (12/11/17 18:15) Morphine Inj (Morphine Inj) (12/11/17 18:15) Morphine Inj (Morphine Inj) (12/11/17 18:15) Naloxone Inj (Narcan Inj) (12/11/17 18:15) Docusate Sodium-Senna (Mary-Colace) (12/11/17 21:00) Magnesium Hydroxide Liq (Milk Of Magnesi (12/11/17 18:15) Sennosides (Senokot) (12/11/17 18:15) Bisacodyl Supp (Dulcolax Supp) (12/11/17 18:15) Lactulose Liq (Lactulose Liq) (12/11/17 18:15) Sodium Chloride 0.9% Flush (Ns Flush) (12/11/17 18:15) Sodium Chloride 0.9% Flush (Ns Flush) (12/11/17 21:00) Cefepime Inj (Maxipime Inj) (12/12/17 00:15) Azithromycin Inj (Zithromax Inj) (12/12/17 16:15) Albuterol-Ipratropium Neb (Duoneb Neb) (12/11/17 22:00) Albuterol-Ipratropium Neb (Duoneb Neb) (12/11/17 18:15) Resp Oxygen Jose Armando C Titrat 1-4 L (12/11/17 ) Resp Incentive Spirometry (12/11/17 ) Consult Pulmonology (12/11/17 ) Sputum Culture And Gram Stain (12/11/17 18:02) Blood Culture (12/11/17 18:02) Inpatient Certification (12/11/17 ) Echo 2d Comp With Doppler (12/11/17 ) Guaifenesin Er (Mucinex Er) (12/11/17 21:00) Consult Cardiology (12/11/17 ) Furosemide Inj (Lasix Inj) (12/12/17 09:00) Potassium Chloride (Kcl) (12/11/17 18:15) Potassium Chloride (Kcl) (12/11/17 21:00) Atenolol (Tenormin) (12/11/17 21:00) Pravastatin (Pravachol) (12/11/17 21:00) Pantoprazole (Protonix) (12/12/17 09:00) Verapamil Sr (Isoptin Sr) (12/12/17 09:00) (Nf) Lisinopril-Hctz (12/12/17 09:00) (Nf) Psyllium Powder (Metamucil Original (12/11/17 18:15) (Nf) Ranitidine (Zantac) (12/12/17 09:00) (Hub Use Only)Inp Phy Cons/Ref (12/11/17 ) (Hub Use Only)Inp Phy Cons/Ref (12/11/17 ) Labs Laboratory Tests Test 12/11/17 16:55 White Blood Count 8.4 TH/MM3 Red Blood Count 3.36 MIL/MM3 Hemoglobin 10.3 GM/DL Hematocrit 29.7 % Mean Corpuscular Volume 88.5 FL Mean Corpuscular Hemoglobin 30.7 PG Mean Corpuscular Hemoglobin Concent 34.8 % Red Cell Distribution Width 15.6 % Platelet Count 295 TH/MM3 Mean Platelet Volume 7.9 FL Neutrophils (%) (Auto) 83.6 % Lymphocytes (%) (Auto) 6.6 % Monocytes (%) (Auto) 9.3 % Eosinophils (%) (Auto) 0.0 % Basophils (%) (Auto) 0.5 % Neutrophils # (Auto) 7.0 TH/MM3 Lymphocytes # (Auto) 0.6 TH/MM3 Monocytes # (Auto) 0.8 TH/MM3 Eosinophils # (Auto) 0.0 TH/MM3 Basophils # (Auto) 0.0 TH/MM3 CBC Comment DIFF FINAL Differential Comment Blood Urea Nitrogen 16 MG/DL Creatinine 0.64 MG/DL Random Glucose 125 MG/DL Total Protein 7.3 GM/DL Albumin 3.2 GM/DL Calcium Level 8.8 MG/DL Magnesium Level 2.0 MG/DL Alkaline Phosphatase 95 U/L Aspartate Amino Transf (AST/SGOT) 8 U/L Alanine Aminotransferase (ALT/SGPT) 12 U/L Total Bilirubin 0.7 MG/DL Sodium Level 134 MEQ/L Potassium Level 3.1 MEQ/L Chloride Level 97 MEQ/L Carbon Dioxide Level 23.6 MEQ/L Anion Gap 13 MEQ/L Estimat Glomerular Filtration Rate 88 ML/MIN Total Creatine Kinase 43 U/L Troponin I 0.13 NG/ML B-Type Natriuretic Peptide 2735 PG/ML [facility] Medical Decision Making Medical Screen Exam Complete: Yes Emergency Medical Condition: Yes Medical Record Reviewed: Yes Interpretation(s) EKG reveals normal sinus rhythm with a rate of. Left ventricular hypertrophy by voltage criteria. ST-T wave changes noted in lead V5, V6, I, and aVL. Last Impressions Chest X-Ray 12/11/17 1620 Signed Impressions: CONCLUSION: 1. Diffuse interstitial prominence, right pleural effusion and right lower lob e airspace disease characteristic of pulmonary congestion. 2. Left-sided Lznlyy-d-Vgsw. 3. Status post lower thoracic kyphoplasty. Laboratory Tests Test 12/11/17 16:55 White Blood Count 8.4 TH/MM3 Red Blood Count 3.36 MIL/MM3 Hemoglobin 10.3 GM/DL Hematocrit 29.7 % Mean Corpuscular Volume 88.5 FL Mean Corpuscular Hemoglobin 30.7 PG Mean Corpuscular Hemoglobin Concent 34.8 % Red Cell Distribution Width 15.6 % Platelet Count 295 TH/MM3 Mean Platelet Volume 7.9 FL Neutrophils (%) (Auto) 83.6 % Lymphocytes (%) (Auto) 6.6 % Monocytes (%) (Auto) 9.3 % Eosinophils (%) (Auto) 0.0 % Basophils (%) (Auto) 0.5 % Neutrophils # (Auto) 7.0 TH/MM3 Lymphocytes # (Auto) 0.6 TH/MM3 Monocytes # (Auto) 0.8 TH/MM3 Eosinophils # (Auto) 0.0 TH/MM3 Basophils # (Auto) 0.0 TH/MM3 CBC Comment DIFF FINAL Differential Comment Blood Urea Nitrogen 16 MG/DL Creatinine 0.64 MG/DL Random Glucose 125 MG/DL Total Protein 7.3 GM/DL Albumin 3.2 GM/DL Calcium Level 8.8 MG/DL Magnesium Level 2.0 MG/DL Alkaline Phosphatase 95 U/L Aspartate Amino Transf (AST/SGOT) 8 U/L Alanine Aminotransferase (ALT/SGPT) 12 U/L Total Bilirubin 0.7 MG/DL Sodium Level 134 MEQ/L Potassium Level 3.1 MEQ/L Chloride Level 97 MEQ/L Carbon Dioxide Level 23.6 MEQ/L Anion Gap 13 MEQ/L Estimat Glomerular Filtration Rate 88 ML/MIN Total Creatine Kinase 43 U/L Troponin I 0.13 NG/ML B-Type Natriuretic Peptide 2735 PG/ML Differential Diagnosis Differential diagnosis includes pleural effusion, malignant pleural effusion, congestive heart failure, cardia myopathy, acute coronary syndrome, pneumonia, hypoxia, pneumothorax. Narrative Course IV was established, labs are drawn and sent, and the patient was placed on cardiac telemetry monitoring and continuous pulse oximetry monitoring. EKG was ordered and interpreted. Chest x-ray was obtained. The patient's chest x-ray reveals pulmonary congestion and right pleural effusion, also could be atypical pneumonia with parapneumonic effusion. Therefore, the patient was administered cefepime and Zithromax to cover for possible healthcare acquired pneumonia she was admitted in September. However, it appears the patient most likely has new onset congestive heart failure with lower extremity edema, pleural effusion, troponin is 0.13, BNP greater than 2000. The patient was administered aspirin 162 mg orally and Lasix 20 mg intravenously. The patient's primary physician is Dr. Sampson, [facility]. The patient is hypoxic, 85% on room air, will require oxygen via nasal cannula to keep her oxygen saturation greater than 90%. Physician Communication Physician Communication The on-call medical service was paged for admission. I discussed the patient with Dr. Dia who agrees with admission. Diagnosis Primary Impression: New onset of congestive heart failure Additional Impression: Hypoxia Admitting Information Admitting Physician Requests: Admit Condition: Stable Vincent Méndez MD Dec 11, 2017 16:27
[2017-12-11] MEDS ORDERED: SODIUM CHLORIDE 0.9% FLUSH 10 ML FLUSH IVF PRN (16:30)
[2017-12-11 17:10] LABS: BASOPHIL % 0.5 % (0.0-2.0); HEMATOCRIT 29.7 % (35.0-46.0); HEMOGLOBIN 10.3 GM/DL (11.6-15.3); LYMPH % 6.6 % (9.0-44.0); LYMPHOCYTE # 0.6 TH/MM3 (1.0-4.8); MEAN CELL VOLUME 88.5 FL (80.0-100.0); MEAN CORPUSCULAR HEMOGLOBIN 30.7 PG (27.0-34.0); MEAN CORPUSCULAR HGB CONC 34.8 % (32.0-36.0); MEAN PLATELET VOLUME 7.9 FL (7.0-11.0); MONO % 9.3 % (0.0-8.0); MONOCYTE # 0.8 TH/MM3 (0-0.9); NEUT % 83.6 % (16.0-70.0); PLATELET COUNT 295 TH/MM3 (150-450); RED BLOOD COUNT 3.36 MIL/MM3 (4.00-5.30); RED CELL DISTRIBUTION WIDTH 15.6 % (11.6-17.2); WHITE BLOOD COUNT 8.4 TH/MM3 (4.0-11.0)
[2017-12-11] MEDS ORDERED: CEFEPIME INJ 2,000 MG in SODIUM CHLORIDE 0.9% INJ 100 ML IV ONE (17:30)
[2017-12-11] MEDS: AZITHROMYCIN INJ 500 MG in SODIUM CHLOR 0.9% 250 ML INJ 250 ML IV ONE ×2 (17:30→18:30)
[2017-12-11 17:31] LABS: ALBUMIN 3.2 GM/DL (3.4-5.0); AST (GOT) 8 U/L (15-37); BICARBONATE 23.6 MEQ/L (21.0-32.0); BLOOD UREA NITROGEN 16 MG/DL (7-18); CALCIUM 8.8 MG/DL (8.5-10.1); CHLORIDE 97 MEQ/L (98-107); CREATININE 0.64 MG/DL (0.50-1.00); GLOMERULAR FILTRATION RATE 88 ML/MIN (>89); GLUCOSE,RANDOM 125 MG/DL (74-106); SODIUM (NA) 134 MEQ/L (136-145)
[2017-12-11 17:36] LABS: ALKALINE PHOSPHATASE 95 U/L (45-117); ALT (GPT) 12 U/L (10-53); TOTAL BILIRUBIN ADULT 0.7 MG/DL (0.2-1.0); TOTAL PROTEIN 7.3 GM/DL (6.4-8.2); TROPONIN I 0.13 NG/ML (0.02-0.05)
--- NOTE | 2017-12-11 17:38 | RADRPT ---
EXAM DATE: 12/11/2017 5:14 PM EDT AGE/SEX: 87 years / Female INDICATIONS: Short of breath. CLINICAL DATA: This is the patient's initial encounter. Patient reports that signs and symptoms have been present for 1 month and indicates a pain score of 0/10. MEDICAL/SURGICAL HISTORY: Chronic obstructive pulmonary disease. Hypertension. None. COMPARISON: No prior exams available for comparison. FINDINGS: Diffuse interstitial prominence is noted. There is a small to moderate right pleural effusion. Consol idating airspace disease is identified in the right lung base. Heart is mildly enlarged. Left-sided Xgnmdp-v-Sydw catheter is in place. Bone cement is identified within a lower thoracic vertebral body characteristic of previous augmentat ion. CONCLUSION: 1. Diffuse interstitial prominence, right pleural effusion and right lower lobe airspace disease danika racteristic of pulmonary congestion. 2. Left-sided Kroyba-q-Rbzl. 3. Status post lower thoracic kyphoplasty. Electronically signed by: Pio Gutierres MD 12/11/2017 5:36 PM EDT
[2017-12-11] MEDS ORDERED: POTASSIUM CHLORIDE 20 MEQ CONTROLLED RELEASE TAB PO ONE ×2 (17:45→18:15)
[2017-12-11] MEDS ORDERED: FUROSEMIDE 20 MG/2 ML VIAL IV PUSH ONE (17:45)
[2017-12-11] MEDS ORDERED: ASPIRIN 81 MG CHEW TAB CHEW ONE (17:45)
[2017-12-11] MEDS ORDERED: LACTULOSE SYRUP 20 GM/30 ML CUP PO PRN (18:15)
[2017-12-11] MEDS ORDERED: MAGNESIUM HYDROXIDE SUSP 30 ML CUP PO PRN (18:15)
[2017-12-11] MEDS ORDERED: oxyCODONE/ACETAMINOPHEN 10 MG/325 MG TAB PO PRN (18:15)
[2017-12-11] MEDS ORDERED: ACETAMINOPHEN 325 MG TAB PO PRN ×2 (18:15)
[2017-12-11] MEDS ORDERED: RESP: ALBUTEROL 2.5 MG/IPRATROPIUM 0.5 MG NEB (PRN) INH (18:15)
[2017-12-11] MEDS ORDERED: SENNOSIDES 8.6 MG TAB PO PRN (18:15)
[2017-12-11] MEDS ORDERED: NALOXONE HCL 0.4 MG/ML AMP IV PUSH PRN (18:15)
[2017-12-11] MEDS ORDERED: MORPHINE SULFATE 4 MG/ML INJ IV PUSH PRN ×3 (18:15)
[2017-12-11] MEDS ORDERED: SODIUM CHLORIDE 0.9% FLUSH 10 ML FLUSH IV FLUSH PRN ×2 (18:15)
[2017-12-11] MEDS ORDERED: BISACODYL 10 MG SUPP RECTAL PRN (18:15)
[2017-12-11] MEDS ORDERED: METOCLOPRAMIDE HCL 10 MG/2 ML VIAL IV PUSH PRN (18:15)
[2017-12-11] MEDS ORDERED: oxyCODONE/ACETAMINOPHEN 5 MG/325 MG TAB PO PRN (18:15)
[2017-12-11] MEDS ORDERED: ONDANSETRON ODT 4 MG TAB PO PRN (18:45)
--- NOTE | 2017-12-11 19:58 | HHI.HP ---
[facility] Danny Sam[facility] MD Admission Diagnosis New onset congestive heart failure, hypoxia, pleural effusion Diagnoses: Travel History International Travel<30 Days: No Contact w/Intl Traveler <30 Da: No Traveled to Known Affected Are: No History of Present Illness 87-year-old female with a past medical history significant for esophageal cancer , recent pleural effusion status post thoracentesis requiring chest tube placement secondary to pneumothorax, hypertension and GERD presents the emergency department for the evaluation of a 25 pound weight loss and increasing shortness of breath. The patient reports she has had anorexia and suffered a 25 pound weight loss over the past 1.5 months. She states she has had increasingly worsening shortness of breath 2 weeks and accompanying fatigue /weakness. She was seen by her PCP 1.5 weeks ago but was not given any new diagnosis. She has had new bilateral lower extremity edema over the past 2 weeks. She denies any chest pain. No abdominal pain. No nausea/vomiting/ diarrhea. No lateralizing signs/symptoms. Review of Systems Except as stated in HPI: all other systems reviewed are Neg Past Family Social History Past Medical History esophageal cancer, recent pleural effusion status post thoracentesis requiring chest tube placement secondary to pneumothorax, hypertension and GERD Past Surgical History Tonsillectomy Port placement Reported Medications Reported Meds & Active Scripts Active Reported Zantac (Ranitidine HCl) 150 Mg Tab 150 Mg PO DAILY Metamucil Original Texture (Psyllium Hydrophilic Mucilloid) 3.4 Gram/7 Gram Pow 1 Scoop PO TID PRN 1 rounded TEASPOON in 8 oz of liquid at the first sign of irregularity. [Calcium] 800 Mg PO DAILY Lovastatin 20 Mg Tab 20 Mg PO HS Lisinopril-Hctz 10-12.5 Mg Tab 1 Tab PO DAILY Atenolol 25 Mg Tab 25 Mg PO BID Verapamil ER 24 HR (Verapamil HCl) 240 Mg Tab 240 Mg PO DAILY Pantoprazole (Pantoprazole Sodium) 40 Mg Tab 40 Mg PO DAILY Allergies: Coded Allergies: Sulfa (Sulfonamide Antibiotics) (Verified Allergy, Intermediate, 12/11/17) clindamycin (Verified Allergy, Intermediate, 12/11/17) penicillin G (Verified Allergy, Intermediate, 12/11/17) Family History Mother with CAD Social History Remote history of tobacco. Denies alcohol and illicit drugs. Physical Exam Vital Signs Vital Signs Date Time Temp Pulse Resp B/P (MAP) Pulse Ox O2 Delivery O2 Flow Rate FiO2 12/11/17 19:13 12/11/17 18:40 85 14 173/73 (106) 96 Room Air 4.00 12/11/17 16:35 96 Nasal Cannula 3.00 12/11/17 16:20 91 16 196/92 (126) 95 Room Air 4.00 12/11/17 16:08 98.5 87 24 212/97 (135) 86 Physical Exam GENERAL: female sitting up in bed SKIN: No rashes, ecchymoses or lesions. Cool and dry. HEAD: Atraumatic. Normocephalic. No temporal or scalp tenderness. EYES: Pupils equal round and reactive. Extraocular motions intact. No scleral icterus. No injection or drainage. ENT: Nose without bleeding, purulent drainage or septal hematoma. Throat without erythema, tonsillar hypertrophy or exudate. Uvula midline. Airway patent. NECK: Trachea midline. No JVD or lymphadenopathy. Supple, nontender, no meningeal signs. CARDIOVASCULAR: Regular rate and rhythm without murmurs, gallops, or rubs. RESPIRATORY: Bilateral wheezes. Diminished breath sounds in the right lower lung with crackles. GASTROINTESTINAL: Abdomen soft, non-tender, nondistended. No hepato-splenomegaly , or palpable masses. No guarding. MUSCULOSKELETAL: 2+ pitting edema of the bilateral lower extremities NEUROLOGICAL: Awake and alert. Cranial nerves II through XII intact. Motor and sensory grossly within normal limits. Normal speech. Laboratory Laboratory Tests Test 12/11/17 16:55 White Blood Count 8.4 Red Blood Count 3.36 Hemoglobin 10.3 Hematocrit 29.7 Mean Corpuscular Volume 88.5 Mean Corpuscular Hemoglobin 30.7 Mean Corpuscular Hemoglobin Concent 34.8 Red Cell Distribution Width 15.6 Platelet Count 295 Mean Platelet Volume 7.9 Neutrophils (%) (Auto) 83.6 Lymphocytes (%) (Auto) 6.6 Monocytes (%) (Auto) 9.3 Eosinophils (%) (Auto) 0.0 Basophils (%) (Auto) 0.5 Neutrophils # (Auto) 7.0 Lymphocytes # (Auto) 0.6 Monocytes # (Auto) 0.8 Eosinophils # (Auto) 0.0 Basophils # (Auto) 0.0 CBC Comment DIFF FINAL Differential Comment Blood Urea Nitrogen 16 Creatinine 0.64 Random Glucose 125 Total Protein 7.3 Albumin 3.2 Calcium Level 8.8 Magnesium Level 2.0 Alkaline Phosphatase 95 Aspartate Amino Transf (AST/SGOT) 8 Alanine Aminotransferase (ALT/SGPT) 12 Total Bilirubin 0.7 Sodium Level 134 Potassium Level 3.1 Chloride Level 97 Carbon Dioxide Level 23.6 Anion Gap 13 Estimat Glomerular Filtration Rate 88 Total Creatine Kinase 43 Troponin I 0.13 B-Type Natriuretic Peptide 2735 Date/Time Source Procedure Growth Status 12/11/17 19:00 Blood Peripheral Aerobic Blood Culture Pending Received 12/11/17 19:00 Blood Peripheral Anaerobic Blood Culture Pending Received Result Diagram: 12/11/175 12/11/17 165 Caprini VTE Risk Assessment Caprini VTE Risk Assessment: Mod/High Risk (score >= 2) Caprini Risk Assessment Model Point Value = 1 Point Value = 2 Point Value = 3 Point Value = 5 Age 41-60 Minor surgery BMI > 25 kg/m2 Swollen legs Varicose veins or History of unexplained or recurrent spontaneous Oral contraceptives or hormone replacement Sepsis (< 1 month) Serious lung disease, including pneumonia (< 1 month) Abnormal pulmonary function Acute myocardial infarction Congestive heart failure (< 1 month) History of inflammatory bowel disease Medical patient at bed rest Age 61-74 Arthroscopic surgery Major open surgery (> 45 min) Laparoscopic surgery (> 45 min) Malignancy Confined to bed (> 72 hours) Immobilizing plaster cast Central venous access Age >= 75 History of VTE Family history of VTE Factor V Leiden Prothrombin [id number] Lupus anticoagulant Anticardiolipin antibodies Elevated serum homocysteine Heparin-induced thrombocytopenia Other congenital or acquired thrombophilia Stroke (< 1 month) Elective arthroplasty Hip, pelvis, or leg fracture Acute spinal cord injury (< 1 month) Prophylaxis Regimen Total Risk Factor Score Risk Level Prophylaxis Regimen 0-1 Low Early ambulation 2 Moderate Order ONE of the following: *Sequential Compression Device (SCD) *Heparin 5000 units SQ BID 3-4 Higher Order ONE of the following medications: *Heparin 5000 units SQ TID *Enoxaparin/Lovenox 40 mg SQ daily (WT < 150 kg, CrCl > 30 mL/min) *Enoxaparin/Lovenox 30 mg SQ daily (WT < 150 kg, CrCl > 10-29 mL/min) *Enoxaparin/Lovenox 30 mg SQ BID (WT < 150 kg, CrCl > 30 mL/min) AND/OR *Sequential Compression Device (SCD) 5 or more Highest Order ONE of the following medications: *Heparin 5000 units SQ TID (Preferred with Epidurals) *Enoxaparin/Lovenox 40 mg SQ daily (WT < 150 kg, CrCl > 30 mL/min) *Enoxaparin/Lovenox 30 mg SQ daily (WT < 150 kg, CrCl > 10-29 mL/min) *Enoxaparin/Lovenox 30 mg SQ BID (WT < 150 kg, CrCl > 30 mL/min) AND *Sequential Compression Device (SCD) Assessment and Plan Assessment and Plan Assessment/plan: 1. New onset CHF BNP 2735 Chest x-ray significant for pulmonary congestion and a right pleural effusion Echo pending Cardiology consulted, appreciate recommendations 2. Pleural effusion May be secondary to CHF versus malignant effusion as patient with history of esophageal cancer Pulmonary consulted, appreciate recommendations 3. Pneumonia Chest x-ray shows diffuse interstitial prominence Azithromycin/cefepime Duo nebs Supplemental oxygen as needed 4. Elevated troponin EKG shows sinus rhythm with nonspecific ST changes and no ST segment elevations or depressions, personally reviewed Initial troponin 0.13 ACS rule out pending; serial troponins/EKGs 5. Hypertension Continue home medications 6. GERD Continue home Protonix 7. History of esophageal cancer Patient status post chemotherapy and radiation in 2013 Follows with her oncologist as outpatient 8. Hypokalemia Status post p.o. repletion Monitor [facility] Heart healthy diet Electrolytes: As above Lovenox Physician Certification 2 Midnight Certification Type: Admission for Inpatient Services Order for Inpatient Services The services are ordered in accordance with Medicare regulations or non- Medicare payer requirements, as applicable. In the case of services not specified as inpatient-only, they are appropriately provided as inpatient services in accordance with the 2-midnight benchmark. Estimated LOS (days): 2 2 days is the estimated time the patient will need to remain in the hospital, assuming treatment plan goals are met and no additional complications. Post-Hospital Plan: Not yet determined Erma Brunner MD Dec 11, 2017 19:58
[2017-12-11] MEDS ORDERED: ENOXAPARIN SODIUM 30 MG/0.3 ML SYRINGE SQ SCH (20:00)
--- NOTE | 2017-12-11 20:28 | EKG ---
Date Performed: 12/11/2017 Time Performed: 16:28:00 PTAGE: 87 years EKG: Sinus rhythm POSSIBLE LEFT ATRIAL ENLARGEMENT LEFT VENTRICULAR HYPERTROPHY AND ST-T CHANGE ABNORMAL ECG PREVIOUS TRACING : 11/07/2012 12.31 DOCTOR: Abhijit Shane Interpretating Date/Time 12/11/2017 20:27:34
[2017-12-11] MEDS ORDERED: PSYLLIUM FIBER SF/GF 6 GM POWD PKT PO PRN (20:30)
--- NOTE | 2017-12-11 20:45 | MB ---
cc: Cullen Neumann MD, Arjun D MD DATE: 12/11/2017 REQUESTING PHYSICIAN: Dr. Dia REASON FOR CONSULTATION: Evaluation of pleural effusion. HISTORY OF PRESENT ILLNESS: Ms. Gaona is a pleasant 87-year-old female with history of CA of the esophagus. She received radiation treatment by Dr. Sukh Templeton and she was being followed by Dr. Marshall. She came to the hospital with weight loss, feeling weak, mild cough and congestion. She did not have fevers or chills. She has occasional cough when she eats. No nausea or vomiting. Because of the worsening of her symptoms, she was seen in the emergency room. She had a chest x-ray done, which shows diffuse interstitial prominence, right pleural effusion and right airspace opacity. She has a left Apuctm-h-Rnxy and is status post kyphoplasty. LABORATORY DATA: WBC count is 8.4, hemoglobin 10.3, hematocrit 29.7, MCV 88, platelet count 295. Sodium 134, potassium 3.1, chloride 97, CO2 is 27, BUN 16, creatinine 0.64. Her blood culture so far is negative. PAST MEDICAL HISTORY: Significant history of CA of the esophagus, status post radiation treatment, hypertension, port placement, tonsillectomy, history of kyphoplasty, hypercholesteremia. CURRENT MEDICATIONS: 1. Zithromax 500 mg a day. 2. Lasix 20 mg twice a day. 3. Protonix 40 mg a day 4. Verapamil 240 mg a day. 4. Famotidine 20 mg a day. 5. Lisinopril 10 mg a day. 6. Hydrochlorothiazide 12.5 mg 7. Cefepime 2 grams q 12 hours. 8. Albuterol Atrovent nebulizer treatment 9. Lovenox 30 mg a day. ALLERGIES: SULFA, CLINDAMYCIN, PENICILLIN G. SOCIAL HISTORY: She is . Has history of smoking, which she quit 30 years ago. She used to work in a bank. FAMILY HISTORY: She has 2 children, one son with cancer of the colon. REVIEW OF SYSTEMS: She has lost about 25 pounds of weight. Appetite is fair. No difficulty swallowing. No DVT or pulmonary embolism. No seizure, stroke or epilepsy. PHYSICAL EXAMINATION: GENERAL: Frail, elderly female, mildly short of breath. VITAL SIGNS: Blood pressure 173/73, heart rate 84, respiration 18, temperature 98.5. HEENT: She has a left eye cataract surgery done and the left pupil is irregular. Oral mucosa and nasal mucosa normal. NECK: Supple. JVP not raised. CHEST: She has decreased breath sounds at the left base. CARDIOVASCULAR: S1, S2 normal. ABDOMEN: Soft, nontender, nondistended. Bowel sounds are present. EXTREMITIES: 1+ pedal edema. IMPRESSION: 1. Left pleural effusion. She does have a history of pneumothorax in the past, had a chest tube placed on the right side before. 2. Pneumonia. 3. Weight loss. 4. Hypertension. 5. History of cancer of the esophagus. PLAN: I discussed with the patient. We will continue with antibiotics, check her cultures. Supplement her oxygen. I will get an ultrasound-guided right thoracentesis, both diagnostic and therapeutic. Further treatment will depend on the course in the hospital. Thank you, Dr. Dia, for this consult. MD JONATAN Lloyd/ , 08:24 PM , 08:44 PM
[2017-12-11] MEDS: cloNIDine HCL 0.1 MG TAB PO PRN (20:53)
[2017-12-11] MEDS: POTASSIUM CHLORIDE 20 MEQ CONTROLLED RELEASE TAB PO SCH (20:53)
[2017-12-11] MEDS: PRAVASTATIN SOD 20 MG TAB PO SCH (20:53)
[2017-12-11] MEDS: guaiFENesin E.R. 600 MG TAB PO SCH (20:54)
[2017-12-11] MEDS: DOCUSATE SODIUM 50 MG/SENNA 8.6 MG TAB PO SCH (20:54)
[2017-12-11] MEDS: SODIUM CHLORIDE 0.9% FLUSH 10 ML FLUSH IV FLUSH SCH (20:54)
[2017-12-11] MEDS ORDERED: ATENOLOL 25 MG TAB PO SCH (21:00)
[2017-12-11] MEDS ORDERED: SODIUM CHLORIDE 0.9% FLUSH 10 ML FLUSH IV FLUSH SCH (21:00)
[2017-12-11] MEDS: RESP: ALBUTEROL 2.5 MG/IPRATROPIUM 0.5 MG NEB (SCH) INH (21:27)
[2017-12-11 22:32] LABS: INTERNATIONAL NORMALIZED RATIO 1.1 RATIO; PROTHROMBIN TIME - PATIENT 11.2 SEC (9.8-11.6)
[2017-12-11 22:40] LABS: TROPONIN I 0.17 NG/ML (0.02-0.05)
[2017-12-12] VITALS (19 sets, daily range): BP systolic 96–166; BP diastolic 47–72; PULSE 71–115; RESP 16–20; TEMP 97.3–98.8; O2SAT 94–100
[2017-12-12] MEDS: RESP: ALBUTEROL 2.5 MG/IPRATROPIUM 0.5 MG NEB (SCH) INH ×4 (03:37→21:47)
[2017-12-12] MEDS: CEFEPIME INJ 2,000 MG in SODIUM CHLORIDE 0.9% INJ 100 ML IV SCH ×2 (06:14→17:30)
--- NOTE | 2017-12-12 07:46 | PD.CONS ---
HPI Consult Requested By Primary Care Physician Danny Sampson MD History of Present Illness 87-year-old female with a past medical history of HTN, HLD, GERD, pleural effusion with recent thoracentesis, history of esophageal cancer status post radiation in 2013 who presented for shortness of breath. The patient has been having worsening shortness of breath for the past few weeks. She reports she gets associated heart racing sensation with shortness of breath. She denies any orthopnea. She feels like her legs have been swelling some. She denies any chest pain. Her chest x-ray showed some pulmonary congestion and small to moderate right-sided pleural effusion. She did have right-sided thoracentesis done 10/12 that was complicated by pneumothorax requiring chest tube insertion. Telemetry overnight shows A. fib with RVR. EKG done today shows A. fib with rate 107, and significant lateral ST depressions. (Eladio Denis) Review of Systems Negative except as stated in HPI (Eladio Denis) Past Family Social History Allergies: Coded Allergies: Sulfa (Sulfonamide Antibiotics) (Verified Allergy, Intermediate, 12/11/17) clindamycin (Verified Allergy, Intermediate, 12/11/17) penicillin G (Verified Allergy, Intermediate, 12/11/17) Past Medical History HTN, HLD, GERD, pleural effusion with recent thoracentesis, history of esophageal cancer status post radiation in 2013 Past Surgical History Tonsillectomy Port placement Reported Medications Reported Meds & Active Scripts Active Reported Zantac (Ranitidine HCl) 150 Mg Tab 150 Mg PO DAILY Metamucil Original Texture (Psyllium Hydrophilic Mucilloid) 3.4 Gram/7 Gram Pow 1 Scoop PO TID PRN 1 rounded TEASPOON in 8 oz of liquid at the first sign of irregularity. [Calcium] 800 Mg PO DAILY Lovastatin 20 Mg Tab 20 Mg PO HS Lisinopril-Hctz 10-12.5 Mg Tab 1 Tab PO DAILY Atenolol 25 Mg Tab 25 Mg PO BID Verapamil ER 24 HR (Verapamil HCl) 240 Mg Tab 240 Mg PO DAILY Pantoprazole (Pantoprazole Sodium) 40 Mg Tab 40 Mg PO DAILY Active Ordered Medications Current Medications Medications (Trade) Dose Ordered Sig/Tiffany Route Start Time Stop Time Status Last Admin (Catapres) 0.1 mg Q4H PRN PO 12/11/17 18:15 12/11/17 20:53 (Tylenol) 650 mg Q4H PRN PO 12/11/17 18:15 (Zofran Odt) 4 mg Q4H PRN PO 12/11/17 18:45 (Reglan Inj) 5 mg Q6H PRN IV PUSH 12/11/17 18:15 (Lovenox Inj) 30 mg Q24H SQ 12/11/17 20:00 12/11/17 20:53 (Tylenol) 650 mg Q6H PRN PO 12/11/17 18:15 (Percocet 5-325 Mg) 1 tab Q6H PRN PO 12/11/17 18:15 (Percocet 10-325 Mg) 1 tab Q6H PRN PO 12/11/17 18:15 (Morphine Inj) 2 mg Q3H PRN IV PUSH 12/11/17 18:15 (Morphine Inj) 4 mg Q3H PRN IV PUSH 12/11/17 18:15 (Morphine Inj) 4 mg Q3H PRN IV PUSH 12/11/17 18:15 (Narcan Inj) 0.4 mg UNSCH PRN IV PUSH 12/11/17 18:15 (Mary-Colace) 1 tab BID PO 12/11/17 21:00 12/11/17 20:54 (Milk Of Magnesia Liq) 30 ml Q12H PRN PO 12/11/17 18:15 (Senokot) 17.2 mg Q12H PRN PO 12/11/17 18:15 (Dulcolax Supp) 10 mg DAILY PRN RECTAL 12/11/17 18:15 (Lactulose Liq) 30 ml DAILY PRN PO 12/11/17 18:15 (NS Flush) 2 ml UNSCH PRN IV FLUSH 12/11/17 18:15 (NS Flush) 2 ml BID IV FLUSH 12/11/17 21:00 12/11/17 20:54 Cefepime HCl 2000 mg/Sodium Chloride 100 ml @ 200 mls/hr Q12H IV 12/12/17 06:00 12/12/17 06:14 Azithromycin 500 mg/Sodium Chloride 250 ml @ 250 mls/hr Q24H IV 12/12/17 20:00 (Duoneb Neb) 1 ampule Q6HR NEB INH 12/11/17 22:00 12/12/17 03:37 (Duoneb Neb) 1 ampule Q4HR NEB PRN INH 12/11/17 18:15 (Mucinex Er) 600 mg BID PO 12/11/17 21:00 12/11/17 20:54 (Lasix Inj) 20 mg BID@,18 IV PUSH 12/12/17 09:00 (KCl) 20 meq Q12HR PO 12/11/17 21:00 12/11/17 20:53 (Tenormin) 25 mg BID PO 12/11/17 21:00 12/11/17 20:54 (Pravachol) 20 mg HS PO 12/11/17 21:00 12/11/17 20:53 (Protonix) 40 mg DAILY PO 12/12/17 09:00 (Isoptin Sr) 240 mg DAILY PO 12/12/17 09:00 (Metamucil Smooth Texture Sf/ Gf Pkt) 1 pkt TID PRN PO 12/11/17 20:30 (Pepcid) 20 mg DAILY PO 12/12/17 09:00 (Prinivil) 10 mg DAILY PO 12/12/17 09:00 Family History Mother with CAD Social History Remote history of tobacco. Denies alcohol and illicit drugs. (Eladio Denis) Physical Exam Vital Signs Vital Signs Date Time Temp Pulse Resp B/P (MAP) Pulse Ox O2 Delivery O2 Flow Rate FiO2 12/12/17 04:09 71 12/12/17 04:00 Nasal Cannula 3.00 12/12/17 04:00 97.4 75 20 155/70 (98) 98 12/12/17 03:40 95 Nasal Cannula 4.00 12/12/17 00:00 97.6 72 18 125/60 (81) 99 12/12/17 00:00 Nasal Cannula 3.00 12/11/17 23:46 92 12/11/17 21:31 100 Nasal Cannula 3.00 12/11/17 21:09 80 12/11/17 20:00 97.3 80 20 163/72 (102) 94 12/11/17 20:00 Nasal Cannula 3.00 12/11/17 19:13 12/11/17 18:40 85 14 173/73 (106) 96 Room Air 4.00 12/11/17 16:35 96 Nasal Cannula 3.00 12/11/17 16:20 91 16 196/92 (126) 95 Room Air 4.00 12/11/17 16:08 98.5 87 24 212/97 (135) 86 Physical Exam GENERAL: Well-developed well-nourished. In no acute distress. NECK: No carotid bruits. No JVD. CARDIOVASCULAR: Tachycardic irregular rate and irregular rhythm. 3/6 systolic ejection murmur appreciated. RESPIRATORY: No accessory muscle use. Diminished breath sounds in the right base. MUSCULOSKELETAL: No clubbing or cyanosis. No edema. NEUROLOGICAL: Awake and alert. Normal speech. Laboratory Laboratory Tests Test 12/11/17 16:55 12/11/17 21:37 12/12/17 06:33 White Blood Count 8.4 Red Blood Count 3.36 Hemoglobin 10.3 Hematocrit 29.7 Mean Corpuscular Volume 88.5 Mean Corpuscular Hemoglobin 30.7 Mean Corpuscular Hemoglobin Concent 34.8 Red Cell Distribution Width 15.6 Platelet Count 295 Mean Platelet Volume 7.9 Neutrophils (%) (Auto) 83.6 Lymphocytes (%) (Auto) 6.6 Monocytes (%) (Auto) 9.3 Eosinophils (%) (Auto) 0.0 Basophils (%) (Auto) 0.5 Neutrophils # (Auto) 7.0 Lymphocytes # (Auto) 0.6 Monocytes # (Auto) 0.8 Eosinophils # (Auto) 0.0 Basophils # (Auto) 0.0 CBC Comment DIFF FINAL Differential Comment Blood Urea Nitrogen 16 Creatinine 0.64 Random Glucose 125 Total Protein 7.3 Albumin 3.2 Calcium Level 8.8 Magnesium Level 2.0 Alkaline Phosphatase 95 Aspartate Amino Transf (AST/SGOT) 8 Alanine Aminotransferase (ALT/SGPT) 12 Total Bilirubin 0.7 Sodium Level 134 Potassium Level 3.1 Chloride Level 97 Carbon Dioxide Level 23.6 Anion Gap 13 Estimat Glomerular Filtration Rate 88 Total Creatine Kinase 43 49 Troponin I 0.13 0.17 B-Type Natriuretic Peptide 2735 Prothrombin Time 11.2 Prothromb Time International Ratio 1.1 Activated Partial Thromboplast Time 28.7 Date/Time Source Procedure Growth Status 12/11/17 19:00 Blood Peripheral Aerobic Blood Culture Pending Received 12/11/17 19:00 Blood Peripheral Anaerobic Blood Culture Pending Received (Eladio Denis) Result Diagram: 12/11/17 1655 12/11/17 1655 Imaging Last Impressions Chest X-Ray 12/11/17 1620 Signed Impressions: CONCLUSION: 1. Diffuse interstitial prominence, right pleural effusion and right lower lob e airspace disease characteristic of pulmonary congestion. 2. Left-sided Iqyddc-f-Gqkm. 3. Status post lower thoracic kyphoplasty. (Eladio Denis) Assessment and Plan Assessment and Plan 87-year-old female with a past medical history of HTN, HLD, GERD, pleural effusion with recent thoracentesis, history of esophageal cancer status post radiation in 2012 who presented for shortness of breath Acute CHF: Possibly rate related or due to valvular heart disease. Check echocardiogram today. On IV diuretics with 20 mg of Lasix twice daily, monitor I's and O's. New onset A. fib with RVR: Stop verapamil and atenolol and start metoprolol for rate control, continue to titrate rate control medications as indicated. Chadsvasc for due to age, gender, hypertension, meets criteria for full anticoagulation, planning for thoracentesis today, hold off on anticoagulation for now pending procedure. Probable aortic stenosis: Follow-up echocardiogram results for further disposition. Abnormal EKG: Possible ischemic changes, no chest pain, follow-up echocardiogram , may need ischemic workup. Discussed Condition With Patient, RN, Dr. Shane (Eladio Denis) Assessment and Plan new onset afib RVR - BB + murmur. probable . 2d echo EKG with LVH and ST depression. pending echo, will decide for [facility] or [facility] CHF - gentle diuresis (Abhijit Shane MD) Eladio Denis Dec 12, 2017 07:46 Abhijit Shane MD Dec 12, 2017 08:08
[2017-12-12 07:59] LABS: AUTOMATED NEUTROPHIL # 4.5 TH/MM3 (1.8-7.7); BASOPHIL % 0.5 % (0.0-2.0); EOSINOPHIL % 0.1 % (0.0-4.0); HEMATOCRIT 25.4 % (35.0-46.0); HEMOGLOBIN 8.8 GM/DL (11.6-15.3); LYMPH % 13.4 % (9.0-44.0); LYMPHOCYTE # 0.8 TH/MM3 (1.0-4.8); MEAN CELL VOLUME 88.6 FL (80.0-100.0); MEAN CORPUSCULAR HEMOGLOBIN 30.6 PG (27.0-34.0); MEAN CORPUSCULAR HGB CONC 34.5 % (32.0-36.0); MONOCYTE # 0.7 TH/MM3 (0-0.9); PLATELET COUNT 227 TH/MM3 (150-450); RED BLOOD COUNT 2.86 MIL/MM3 (4.00-5.30); RED CELL DISTRIBUTION WIDTH 15.4 % (11.6-17.2); WHITE BLOOD COUNT 6.1 TH/MM3 (4.0-11.0)
[2017-12-12] MEDS ORDERED: ENOXAPARIN SODIUM 30 MG/0.3 ML SYRINGE SQ SCH (08:00)
[2017-12-12 08:35] LABS: ALBUMIN 2.6 GM/DL (3.4-5.0); ALKALINE PHOSPHATASE 76 U/L (45-117); ALT (GPT) 16 U/L (10-53); AST (GOT) 13 U/L (15-37); BICARBONATE 25.9 MEQ/L (21.0-32.0); BLOOD UREA NITROGEN 18 MG/DL (7-18); CALCIUM 8.4 MG/DL (8.5-10.1); CHLORIDE 101 MEQ/L (98-107); CREATININE 0.63 MG/DL (0.50-1.00); FREE T4 1.25 NG/DL (0.76-1.46); GLOMERULAR FILTRATION RATE 89 ML/MIN (>89); GLUCOSE,RANDOM 99 MG/DL (74-106); PHOSPHORUS 2.8 MG/DL (2.5-4.9); SODIUM (NA) 137 MEQ/L (136-145); TOTAL BILIRUBIN ADULT 0.6 MG/DL (0.2-1.0); TOTAL PROTEIN 6.1 GM/DL (6.4-8.2); TROPONIN I 0.17 NG/ML (0.02-0.05)
[2017-12-12] MEDS: guaiFENesin E.R. 600 MG TAB PO SCH ×2 (08:38→23:03)
[2017-12-12] MEDS: POTASSIUM CHLORIDE 20 MEQ CONTROLLED RELEASE TAB PO SCH ×2 (08:38→23:03)
[2017-12-12] MEDS: METOPROLOL TARTRATE 50 MG TAB PO SCH ×2 (08:38→23:04)
[2017-12-12] MEDS: FAMOTIDINE 20 MG TAB PO SCH (08:39)
[2017-12-12] MEDS: LISINOPRIL 10 MG TAB PO SCH (08:39)
[2017-12-12] MEDS: PANTOPRAZOLE SOD 40 MG DELAYED RELEASE TAB PO SCH (08:39)
[2017-12-12] MEDS: FUROSEMIDE 20 MG/2 ML VIAL IV PUSH SCH ×2 (08:39→17:31)
[2017-12-12] MEDS: DOCUSATE SODIUM 50 MG/SENNA 8.6 MG TAB PO SCH ×2 (08:39→23:03)
[2017-12-12] MEDS: SODIUM CHLORIDE 0.9% FLUSH 10 ML FLUSH IV FLUSH SCH ×2 (08:39→23:06)
--- NOTE | 2017-12-12 08:55 | HHI.PR ---
Subjective Remarks Still with shortness of breath. Edema in her legs is improving. No nausea or vomiting. Eating fairly well. Denies chest pain. No palpitations. Objective Vitals Vital Signs Date Time Temp Pulse Resp B/P (MAP) Pulse Ox O2 Delivery O2 Flow Rate FiO2 12/12/17 04:09 71 12/12/17 04:00 Nasal Cannula 3.00 12/12/17 04:00 97.4 75 20 155/70 (98) 98 12/12/17 03:40 95 Nasal Cannula 4.00 12/12/17 00:00 97.6 72 18 125/60 (81) 99 12/12/17 00:00 Nasal Cannula 3.00 12/11/17 23:46 92 12/11/17 21:31 100 Nasal Cannula 3.00 12/11/17 21:09 80 12/11/17 20:00 97.3 80 20 163/72 (102) 94 12/11/17 20:00 Nasal Cannula 3.00 12/11/17 19:13 12/11/17 18:40 85 14 173/73 (106) 96 Room Air 4.00 12/11/17 16:35 96 Nasal Cannula 3.00 12/11/17 16:20 91 16 196/92 (126) 95 Room Air 4.00 12/11/17 16:08 98.5 87 24 212/97 (135) 86 I/O 12/11/17 12/11/17 12/11/17 12/12/17 12/12/17 12/12/17 07:00 15:00 23:00 07:00 15:00 23:00 Intake Total 350 ml 340 ml Balance 350 ml 340 ml Intake Oral 240 ml IV Total 350 ml 100 ml # Voids 5 # Bowel Movements 0 Result Diagram: 12/12/17 0633 12/12/17 0633 Imaging Last Impressions Chest X-Ray 12/11/17 1620 Signed Impressions: CONCLUSION: 1. Diffuse interstitial prominence, right pleural effusion and right lower lob e airspace disease characteristic of pulmonary congestion. 2. Left-sided Zvmkjk-q-Vtxg. 3. Status post lower thoracic kyphoplasty. Objective Remarks GENERAL: female sitting up in bed NECK: Trachea midline. No JVD or lymphadenopathy. Supple, nontender, no meningeal signs. CARDIOVASCULAR: Regular rate and rhythm without murmurs, gallops, or rubs. RESPIRATORY: Bilateral wheezes. Diminished breath sounds in the right lower lung with crackles. GASTROINTESTINAL: Abdomen soft, non-tender, nondistended. No hepato-splenomegaly , or palpable masses. No guarding. MUSCULOSKELETAL: 2+ pitting edema of the bilateral lower extremities NEUROLOGICAL: Awake and alert. Cranial nerves II through XII intact. Motor and sensory grossly within normal limits. Normal speech. A/P Assessment and Plan New onset CHF BNP 2735 on admission Chest x-ray significant for pulmonary congestion and a right pleural effusion Echo reviewed patient with normal EF however with severe aortic stenosis and mitral regurgitation. Candidate for TAVR Cardiology consulted, appreciate recommendations. Pleural effusion May be secondary to CHF versus malignant effusion as patient with history of esophageal cancer Pulmonary consulted, appreciate recommendations Hypokalemia. Replace K. Monitor closely and replace as need. Pneumonia Chest x-ray shows diffuse interstitial prominence Azithromycin/cefepime Duo nebs Supplemental oxygen as needed Elevated troponin EKG shows sinus rhythm with nonspecific ST changes and no ST segment elevations or depressions, personally reviewed Initial troponin 0.13 ACS rule out pending; serial troponins/EKGs Hypertension Continue home medications GERD Continue home Protonix History of esophageal cancer Patient status post chemotherapy and radiation in 2012 Follows with her oncologist as outpatient Hypokalemia Status post p.o. repletion Monitor BMP DVT ppx: Lovenox Discussed with the patient, nurse Johnna Vasquez MD Dec 12, 2017 08:55
[2017-12-12] MEDS ORDERED: NON-FORMULARY DRUG (Lisinopril-Hctz 1 TAB) PO SCH (09:00)
[2017-12-12] MEDS ORDERED: VERAPAMIL HCL 240 MG SUSTAINED RELEASE TAB PO SCH (09:00)
[2017-12-12] MEDS ORDERED: HYDROCHLOROTHIAZIDE 25 MG TAB PO SCH (09:00)
--- NOTE | 2017-12-12 09:05 | EKG ---
Date Performed: 12/11/2017 Time Performed: 23:56:12 PTAGE: 87 years EKG: Sinus arrhythmia Leftward axis Inferior infarct - age undetermined Left ventricular hypertr ophy Lateral ST-T changes are probably due to ventricular hypertrophy Abnormal ECG PREVIOUS TRACING : 12/11/2017 16.28 DOCTOR: Abhijit Shane Interpretating Date/Time 12/12/2017 09:03:06
[2017-12-12 10:49] LABS: TROPONIN I 0.15 NG/ML (0.02-0.05)
--- NOTE | 2017-12-12 11:46 | RADRPT ---
EXAM DATE: 12/12/2017 10:50 AM EDT AGE/SEX: 87 years / Female INDICATIONS: Post right thoracentesis. CLINICAL DATA: This is the patient's initial encounter. Patient reports that signs and symptoms have been present for 1 day and indicates a pain score of 7/10. MEDICAL/SURGICAL HISTORY: Chronic obstructive pulmonary disease. Hypertension. None. COMPARISON: [facility] – [place], CHEST EXPIRATION ONLY, 10/14/2017. . FINDINGS: There is no pneumothorax status post right thoracentesis. Tiny right pleural effusion remains. A left subclavian Atbiiv-o-Cfbc has its tip in superior vena cava. Bibasilar atelectasis is noted. The hear t is mildly enlarged. Degenerative changes and scoliosis of the thoracolumbar spine are noted. CONCLUSION: 1. No pneumothorax status post right thoracentesis. 2. Tiny residual right pleural effusion. 3. Cardiomegaly. 4. Bibasilar atelectasis. 5. Degenerative changes and scoliosis of the thoracolumbar spine. Electronically signed by: Prakash Martines MD 12/12/2017 11:45 AM EDT
--- NOTE | 2017-12-12 11:50 | RADRPT ---
EXAM DATE: 12/12/2017 11:25 AM EDT AGE/SEX: 87 years / Female INDICATIONS: Pleural effusion. CLINICAL DATA: This is the patient's subsequent encounter. Patient reports that signs and symptoms h ave been present for 2 days and indicates a pain score of 4/10. MEDICAL/SURGICAL HISTORY: Gastroesophageal reflux disease. Hypercholesterolemia. Hypertension . IBD. Arthritis. Osteoporosis. Depression. Anxiety. Esophageal cancer. Chemotherapy. Heart murmur. Measles. Appendectomy. Kyphoplasty. Left cataract removal. Thoracentesis. PEG tube. COMPARISON: [facility] – [place], US GUIDED THORACENTESIS RIGHT, 10/12/2017. . FLUID: Total volume of 750 ml cc of clear, yellow fluid was removed. Fluid was sent to lab for ordered studies. . . TECHNIQUE: Ultrasound guidance for thoracentesis. Thoracentesis. The risks, benefits, and alternatives to ultrasound guided thoracentesis were explained to the patien t in lay simple terms, including the risk of bleeding and infection. Written and verbal informed con sent was obtained. Appropriate area for right thoracentesis was marked under ultrasound guidance with the patient in the upright position. Overlying skin was prepped and draped in the usual sterile fashion and with local anesthetic, a dermatotomy was made with an 11 blade scalpel. A 6 Czech thoracentesis catheter was placed in the pleural space and fluid was removed. Catheter was then removed and a sterile dressing applied. There were no immediate complications. The patient tolerated the procedure well and the lef t the ultrasound suite in stable condition. Chest radiograph is to be obtained. FINDINGS: Successful right thoracentesis with ultrasound guidance as described above. CONCLUSION: 1. Subtle right thoracentesis with ultrasound guidance as described above. Electronically signed by: Prakash Martines MD 12/12/2017 11:49 AM EDT
[2017-12-12 12:36] LABS: PLEURAL FLUID RBC 1140 /MM3 (0-0); PLEURAL FLUID WBC 110 /MM3 (0-10)
[2017-12-12 12:38] LABS: PLEURAL FLUID LYMPHS 94 %; PLEURAL FLUID MESOTHELIAL 1 %; PLEURAL FLUID MONOS 4 %; PLEURAL FLUID POLYS (SEGS) 1 %
[2017-12-12 12:56] LABS: TOTAL PROTEIN,PLEURAL FLUID 2.9 GM/DL
--- NOTE | 2017-12-12 13:10 | EKG ---
Date Performed: 12/12/2017 Time Performed: 07:44:32 PTAGE: 87 years EKG: Atrial fibrillation with rapid ventricular response. Inferior/lateral ST-T changes may be d ue to myocardial ischemia Abnormal ECG PREVIOUS TRACING : 12/11/2017 23.56 DOCTOR: Abhijit Shane Interpretating Date/Time 12/12/2017 13:04:58
[2017-12-12 15:59] LABS: HEMOGLOBIN A1C 5.1 % (4.3-6.0)
--- NOTE | 2017-12-12 16:07 | ECHRPT ---
Indication: Heart failure, unspecified CONCLUSIONS The left ventricular systolic function is low normal with an estimated ejection fraction in the rang e of 50- 55%. Wall thickness is normal. Normal left ventricular size. The left atrial size is moderately dilated. The right atrial size is mildly dilated. Moderate thickening of the mitral valve leaflets. Moderate eccentric mitral valve regurgitation. Moderate eccentric aortic valve regurgitation. Severe aortic valve stenosis. There is severe tricuspid regurgitation. The estimated pulmonary arterial pressure is 59.6 mmHg. BP: / HR: Rhythm: Sinus MEASUREMENTS (Male / Female) Normal Values Technical Quality:Good 2D ECHO LV Diastolic Diameter PLAX 4.3 cm 4.2 - 5.9 / 3.9 - 5.3 cm LV Systolic Diameter PLAX 3.4 cm IVS Diastolic Thickness 1.0 cm 0.6 - 1.0 / 0.6 - 0.9 cm LVPW Diastolic Thickness 1.0 cm 0.6 - 1.0 / 0.6 - 0.9 cm LV Relative Wall Thickness 0.5 LVOT Diameter 1.7 cm M-MODE Aortic Root Diameter MM 2.0 cm LA Systolic Diameter MM 3.0 cm LA Ao Ratio MM 1.5 AV Cusp Separation MM 1.7 cm DOPPLER AV Peak Velocity 440.4 cm/s AV Peak Gradient 77.6 mmHg AV Mean Gradient 48.7 mmHg AV Velocity Time Integral 97.4 cm AI Peak Velocity 429.3 cm/s AI Peak Gradient 73.7 mmHg AI Pressure Half Time 427.3 ms LVOT Peak Velocity 84.4 cm/s LVOT Peak Gradient 2.8 mmHg AV Area Cont Eq pk 0.4 cm MR Peak Velocity 538.5 cm/s MR Peak Gradient 116.0 mmHg Mitral E Point Velocity 123.0 cm/s Mitral A Point Velocity 76.5 cm/s Mitral E to A Ratio 1.6 LV E' Lateral Velocity 6.2 cm/s Mitral E to LV E' Lateral Ratio 19.7 LV E' Septal Velocity 3.9 cm/s Mitral E to LV E' Septal Ratio 31.5 TR Peak Velocity 352.0 cm/s TR Peak Gradient 49.6 mmHg Right Atrial Pressure 10.0 mmHg Pulmonary Artery Systolic Pressu 59.6 mmHg Right Ventricular Systolic Press 59.6 mmHg PV Peak Velocity 271.0 cm/s PV Peak Gradient 29.4 mmHg FINDINGS LEFT VENTRICLE The left ventricular systolic function is low normal with an estimated ejection fraction in the rang e of 50- 55%. Wall thickness is normal. Normal left ventricular size. RIGHT VENTRICLE Normal right ventricular size and systolic function. LEFT ATRIUM The left atrial size is moderately dilated. RIGHT ATRIUM The right atrial size is mildly dilated. ATRIAL SEPTUM Normal atrial septal thickness without atrial level shunting by limited color doppler interrogation. AORTA The aortic root and proximal ascending aorta are not well visualized. The aortic root and proximal ascending aorta are normal in size on limited imaging. MITRAL VALVE Moderate thickening of the mitral valve leaflets. Moderate eccentric mitral valve regurgitation. AORTIC VALVE Moderate eccentric aortic valve regurgitation. Severe aortic valve stenosis. TRICUSPID VALVE There is severe tricuspid regurgitation. The estimated pulmonary arterial pressure is 59.6 mmHg. PULMONARY VALVE The pulmonary valve is not well visualized. VESSELS The inferior vena cava is normal in size. PERICARDIUM No pericardial effusion. Abhijit Shane MD, FACC (Electronically Signed) Final Date:12 December 2017 15:51
[2017-12-12] MEDS: FERROUS SULFATE 325 MG (65 MG ELEMENTAL IRON) TAB PO SCH (17:30)
--- NOTE | 2017-12-12 20:53 | HHI.PR ---
Subjective Remarks [address] eff, lung infilt Had TC, 900 cc fluid removed Breathing better Mild chest pain Does't want pain meds Objective Vital Signs Vital Signs Date Time Temp Pulse Resp B/P (MAP) Pulse Ox O2 Delivery O2 Flow Rate FiO2 12/12/17 19:57 97.3 90 18 129/56 (80) 97 12/12/17 19:57 Nasal Cannula 3.00 12/12/17 16:07 97.9 78 16 128/66 (86) 98 12/12/17 16:00 86 12/12/17 12:07 98.0 77 17 143/67 (92) 100 12/12/17 12:00 74 12/12/17 11:05 83 20 96/47 (63) 96 12/12/17 10:50 97.7 75 18 113/53 (73) 94 12/12/17 10:22 98.3 82 18 108/50 (69) 96 12/12/17 09:51 97 Nasal Cannula 3.00 12/12/17 08:07 98.0 76 17 119/54 (75) 97 12/12/17 08:00 115 12/12/17 08:00 Nasal Cannula 3.00 12/12/17 04:09 71 12/12/17 04:00 Nasal Cannula 3.00 12/12/17 04:00 97.4 75 20 155/70 (98) 98 12/12/17 03:40 95 Nasal Cannula 4.00 12/12/17 00:00 97.6 72 18 125/60 (81) 99 12/12/17 00:00 Nasal Cannula 3.00 12/11/17 23:46 92 12/11/17 21:31 100 Nasal Cannula 3.00 12/11/17 21:09 80 I/O 12/11/17 12/11/17 12/11/17 12/12/17 12/12/17 12/12/17 07:00 15:00 23:00 07:00 15:00 23:00 Intake Total 350 ml 340 ml 420 ml Balance 350 ml 340 ml 420 ml Intake Oral 240 ml 420 ml IV Total 350 ml 100 ml # Voids 5 5 # Bowel Movements 0 1 Result Diagram: 12/12/1763212/12/17632 Objective Remarks GENERAL: Frail elderly WF, NAD SKIN: Warm and dry. HEAD: Normocephalic. EYES: No scleral icterus. No injection or drainage. NECK: Supple, trachea midline. No JVD or lymphadenopathy. CARDIOVASCULAR: Regular rate and rhythm without murmurs, gallops, or rubs. RESPIRATORY: Breath sounds equal bilaterally. No accessory muscle use. GASTROINTESTINAL: Abdomen soft, non-tender, nondistended. MUSCULOSKELETAL: No cyanosis, or edema. BACK: Nontender without obvious deformity. No CVA tenderness. A/P Assessment and Plan IMPRESSION: 1. Left pleural effusion. She does have a history of pneumothorax in the past, had a chest tube placed on the right side before. 2. Pneumonia. 3. Weight loss. 4. Hypertension. 5. History of cancer of the esophagus PLAN: Diurease Cont Abx Supplement [address] fluid results Cullen Neumann MD Dec 12, 2017 20:53
[2017-12-12] MEDS: PRAVASTATIN SOD 20 MG TAB PO SCH (23:03)
[2017-12-12] MEDS: AZITHROMYCIN INJ 500 MG in SODIUM CHLOR 0.9% 250 ML INJ 250 ML IV SCH (23:09)
[2017-12-13] VITALS (24 sets, daily range): BP systolic 81–154; BP diastolic 45–84; PULSE 79–187; RESP 17–32; TEMP 97.3–98.3; O2SAT 91–100
[2017-12-13] MEDS: RESP: ALBUTEROL 2.5 MG/IPRATROPIUM 0.5 MG NEB (SCH) INH ×4 (02:57→20:16)
[2017-12-13] MEDS: CEFEPIME INJ 2,000 MG in SODIUM CHLORIDE 0.9% INJ 100 ML IV SCH ×2 (04:40→17:05)
--- NOTE | 2017-12-13 07:58 | PD.CARD.PN ---
Subjective Subjective Remarks The patient had thoracentesis yesterday, has some chest discomfort from thoracentesis site. She reports her breathing is a little better today. She denies any palpitations and telemetry shows patient converted to normal sinus rhythm yesterday. She does have a wet cough, but denies any phlegm. (Eladio Denis) Objective Medications Current Medications Medications (Trade) Dose Ordered Sig/Tiffany Route Start Time Stop Time Status Last Admin (Catapres) 0.1 mg Q4H PRN PO 12/11/17 18:15 12/11/17 20:53 (Tylenol) 650 mg Q4H PRN PO 12/11/17 18:15 (Zofran Odt) 4 mg Q4H PRN PO 12/11/17 18:45 (Reglan Inj) 5 mg Q6H PRN IV PUSH 12/11/17 18:15 (Tylenol) 650 mg Q6H PRN PO 12/11/17 18:15 (Percocet 5-325 Mg) 1 tab Q6H PRN PO 12/11/17 18:15 (Percocet 10-325 Mg) 1 tab Q6H PRN PO 12/11/17 18:15 (Morphine Inj) 2 mg Q3H PRN IV PUSH 12/11/17 18:15 (Morphine Inj) 4 mg Q3H PRN IV PUSH 12/11/17 18:15 (Morphine Inj) 4 mg Q3H PRN IV PUSH 12/11/17 18:15 (Narcan Inj) 0.4 mg UNSCH PRN IV PUSH 12/11/17 18:15 (Mary-Colace) 1 tab BID PO 12/11/17 21:00 12/12/17 23:03 (Milk Of Magnesia Liq) 30 ml Q12H PRN PO 12/11/17 18:15 (Senokot) 17.2 mg Q12H PRN PO 12/11/17 18:15 (Dulcolax Supp) 10 mg DAILY PRN RECTAL 12/11/17 18:15 (Lactulose Liq) 30 ml DAILY PRN PO 12/11/17 18:15 (NS Flush) 2 ml UNSCH PRN IV FLUSH 12/11/17 18:15 (NS Flush) 2 ml BID IV FLUSH 12/11/17 21:00 12/12/17 23:06 Cefepime HCl 2000 mg/Sodium Chloride 100 ml @ 200 mls/hr Q12H IV 12/12/17 06:00 12/13/17 04:40 Azithromycin 500 mg/Sodium Chloride 250 ml @ 250 mls/hr Q24H IV 12/12/17 20:00 12/12/17 23:09 (Duoneb Neb) 1 ampule Q6HR NEB INH 12/11/17 22:00 12/13/17 02:57 (Duoneb Neb) 1 ampule Q4HR NEB PRN INH 12/11/17 18:15 (Mucinex Er) 600 mg BID PO 12/11/17 21:00 12/12/17 23:03 (Lasix Inj) 20 mg BID@ IV PUSH 12/12/17 09:00 12/12/17 17:31 (KCl) 20 meq Q12HR PO 12/11/17 21:00 12/12/17 23:03 (Pravachol) 20 mg HS PO 12/11/17 21:00 12/12/17 23:03 (Protonix) 40 mg DAILY PO 12/12/17 09:00 12/12/17 08:39 (Metamucil Smooth Texture Sf/ Gf Pkt) 1 pkt TID PRN PO 12/11/17 20:30 (Pepcid) 20 mg DAILY PO 12/12/17 09:00 12/12/17 08:39 (Prinivil) 10 mg DAILY PO 12/12/17 09:00 12/12/17 08:39 (Lopressor) 50 mg Q12HR PO 12/12/17 09:00 12/12/17 23:04 (Ferrous Sulfate) 325 mg DAILY PO 12/12/17 16:00 12/12/17 17:30 Vital Signs / I&O Vital Signs Date Time Temp Pulse Resp B/P (MAP) Pulse Ox O2 Delivery O2 Flow Rate FiO2 12/13/17 04:34 97.3 79 18 154/66 (95) 100 12/13/17 03:54 84 12/12/17 23:57 77 12/12/17 23:14 98.8 90 18 166/72 (103) 96 12/12/17 21:49 99 Nasal Cannula 2.00 12/12/17 19:59 98 12/12/17 19:57 97.3 90 18 129/56 (80) 97 12/12/17 19:57 Nasal Cannula 3.00 12/12/17 16:07 97.9 78 16 128/66 (86) 98 12/12/17 16:00 86 12/12/17 12:07 98.0 77 17 143/67 (92) 100 12/12/17 12:00 74 12/12/17 11:05 83 20 96/47 (63) 96 12/12/17 10:50 97.7 75 18 113/53 (73) 94 12/12/17 10:22 98.3 82 18 108/50 (69) 96 12/12/17 09:51 97 Nasal Cannula 3.00 12/12/17 08:07 98.0 76 17 119/54 (75) 97 12/12/17 08:00 115 12/12/17 08:00 Nasal Cannula 3.00 I/O 12/12/17 12/12/17 12/12/17 12/13/17 12/13/17 12/13/17 07:00 15:00 23:00 07:00 15:00 23:00 Intake Total 340 ml 420 ml 610 ml Output Total 400 ml Balance 340 ml 420 ml 210 ml Intake Oral 240 ml 420 ml 360 ml IV Total 100 ml 250 ml Output Urine Total 400 ml # Voids 5 5 # Bowel Movements 0 1 1 Physical Exam GENERAL: Well-developed well-nourished. In no acute distress. NECK: No carotid bruits. No JVD. CARDIOVASCULAR: Regular rate and rhythm. 3/6 systolic ejection murmur appreciated. RESPIRATORY: No accessory muscle use. Clear to auscultation. Wet sounding cough. MUSCULOSKELETAL: No clubbing or cyanosis. No edema. NEUROLOGICAL: Awake and alert. Normal speech. Laboratory Laboratory Tests Test 12/12/17 10:01 12/12/17 10:30 Total Creatine Kinase 55 U/L Troponin I 0.15 NG/ML Pleural Fluid pH 8.0 Pleural Fluid WBC 110 /MM3 Pleural Fluid RBC 1140 /MM3 Pleural Fluid Neutrophils 1 % Pleural Fluid Lymphocytes 94 % Pleural Fluid Monocytes 4 % Pleural Fluid Mesothelial Cells 1 % Pleural Fluid Comment Pleural Fluid Total Protein 2.9 GM/DL Pleural Fluid LDH 86 U/L Pleural Fluid Glucose 95 MG/DL Imaging Last Impressions Thoracentesis Ultrasound 12/12/17 0600 Signed Impressions: CONCLUSION: 1. Subtle right thoracentesis with ultrasound guidance as described above. Chest X-Ray 12/12/17 0000 Signed Impressions: CONCLUSION: 1. No pneumothorax status post right thoracentesis. 2. Tiny residual right pleural effusion. 3. Cardiomegaly. 4. Bibasilar atelectasis. 5. Degenerative changes and scoliosis of the thoracolumbar spine. (Eladio Denis) Assessment and Plan Assessment and Plan 87-year-old female with a past medical history of HTN, HLD, GERD, pleural effusion with recent thoracentesis, history of esophageal cancer status post radiation in 2013 who presented for shortness of breath Acute diastolic CHF: Likely secondary to severe valve disease. On IV diuretics with 20 mg of Lasix twice daily, monitor I's and O's. New onset A. fib with RVR: Stopped verapamil and atenolol and started metoprolol for rate control. Patient is converted to NSR today. Chadsvasc 4 for due to age, gender, hypertension, meets criteria for full anticoagulation, multiple procedures planned, hold off on anticoagulation for now. Severe symptomatic aortic stenosis: With CHF as above. CT surgeon and TAVR coordinator consulted. Abnormal EKG: Possible ischemic changes, will need [facility] prior to AVR. (Eladio Denis) Assessment and Plan convert to PO lasix now NSR. cont bb /MR/TR. will get CT surgeon opinion. I don't think good surgical candidate. May be TAVR candidate, but will residual MR/TR impede clinical improvement. (Abhijit Shane MD) Eladio Denis Dec 13, 2017 07:57 Abhijit Shane MD Dec 13, 2017 10:42
[2017-12-13] MEDS ORDERED: LIDOCAINE HCL 1% PF 30 ML VIAL ONE (08:27)
[2017-12-13] MEDS: DOCUSATE SODIUM 50 MG/SENNA 8.6 MG TAB PO SCH ×2 (08:31→20:52)
[2017-12-13] MEDS: FERROUS SULFATE 325 MG (65 MG ELEMENTAL IRON) TAB PO SCH (08:32)
[2017-12-13] MEDS: FUROSEMIDE 20 MG/2 ML VIAL IV PUSH SCH ×2 (08:32→17:04)
[2017-12-13] MEDS: PANTOPRAZOLE SOD 40 MG DELAYED RELEASE TAB PO SCH (08:32)
[2017-12-13] MEDS: METOPROLOL TARTRATE 50 MG TAB PO SCH ×2 (08:32→20:52)
[2017-12-13] MEDS: POTASSIUM CHLORIDE 20 MEQ CONTROLLED RELEASE TAB PO SCH ×2 (08:32→20:52)
[2017-12-13] MEDS: guaiFENesin E.R. 600 MG TAB PO SCH ×2 (08:32→20:52)
[2017-12-13] MEDS: FAMOTIDINE 20 MG TAB PO SCH (08:32)
[2017-12-13] MEDS: LISINOPRIL 10 MG TAB PO SCH (08:33)
[2017-12-13] MEDS: SODIUM CHLORIDE 0.9% FLUSH 10 ML FLUSH IV FLUSH SCH ×2 (08:33→20:53)
[2017-12-13] MEDS ORDERED: POTASSIUM CHLORIDE 10 MEQ CONTROLLED RELEASE TAB PO ONE (13:15)
--- NOTE | 2017-12-13 16:07 | HHI.PR ---
Subjective Remarks 87 [address] eff, lung infilt Had TC, 900 cc fluid removed Breathing better Mild chest pain Does't want pain meds Cultures of pl fluid negative Objective Vital Signs Vital Signs Date Time Temp Pulse Resp B/P (MAP) Pulse Ox O2 Delivery O2 Flow Rate FiO2 12/13/17 12:27 97.4 80 18 104/50 (68) 100 12/13/17 12:00 79 12/13/17 08:32 98 Nasal Cannula 1.00 12/13/17 08:08 98.1 79 17 133/74 (93) 96 12/13/17 08:00 Nasal Cannula 2.00 12/13/17 08:00 83 12/13/17 04:34 97.3 79 18 154/66 (95) 100 12/13/17 03:54 84 12/12/17 23:57 77 12/12/17 23:14 98.8 90 18 166/72 (103) 96 12/12/17 21:49 99 Nasal Cannula 2.00 12/12/17 19:59 98 12/12/17 19:57 97.3 90 18 129/56 (80) 97 12/12/17 19:57 Nasal Cannula 3.00 12/12/17 16:07 97.9 78 16 128/66 (86) 98 I/O 12/12/17 12/12/17 12/12/17 12/13/17 12/13/17 12/13/17 07:00 15:00 23:00 07:00 15:00 23:00 Intake Total 340 ml 420 ml 610 ml Output Total 400 ml Balance 340 ml 420 ml 210 ml Intake Oral 240 ml 420 ml 360 ml IV Total 100 ml 250 ml Output Urine Total 400 ml # Voids 5 5 # Bowel Movements 0 1 1 Result Diagram: 12/12/17 0633 12/12/17 0633 Objective Remarks GENERAL: Frail elderly WF, NAD SKIN: Warm and dry. HEAD: Normocephalic. EYES: No scleral icterus. No injection or drainage. NECK: Supple, trachea midline. No JVD or lymphadenopathy. CARDIOVASCULAR: Regular rate and rhythm without murmurs, gallops, or rubs. RESPIRATORY: Breath sounds equal bilaterally. No accessory muscle use. GASTROINTESTINAL: Abdomen soft, non-tender, nondistended. MUSCULOSKELETAL: No cyanosis, or edema. BACK: Nontender without obvious deformity. No CVA tenderness. A/P Assessment and Plan IMPRESSION: 1. Left pleural effusion. She does have a history of pneumothorax in the past, had a chest tube placed on the right side before. 2. Pneumonia. 3. Weight loss. 4. Hypertension. 5. History of cancer of the esophagus PLAN: Diurease Cont Abx Supplement 02 Wean 02 to keep sat >90% Cytology pending Cullen Neumann MD Dec 13, 2017 16:07
[2017-12-13 16:41] LABS: AMYLASE BODY FLUID 29 U/L; AMYLASE BODY FLUID TYPE PLEURAL
--- NOTE | 2017-12-13 17:39 | HHI.PR ---
Subjective Remarks Feels some improvement today. Less shortness of breath. No chest pain no lightheadedness no palpitations. Denies fever or chills. No cough Objective Vitals Vital Signs Date Time Temp Pulse Resp B/P (MAP) Pulse Ox O2 Delivery O2 Flow Rate FiO2 12/13/17 16:19 93 21 12/13/17 12:27 97.4 80 18 104/50 (68) 100 12/13/17 12:00 79 12/13/17 08:32 98 Nasal Cannula 1.00 12/13/17 08:08 98.1 79 17 133/74 (93) 96 12/13/17 08:00 Nasal Cannula 2.00 12/13/17 08:00 83 12/13/17 04:34 97.3 79 18 154/66 (95) 100 12/13/17 03:54 84 12/12/17 23:57 77 12/12/17 23:14 98.8 90 18 166/72 (103) 96 12/12/17 21:49 99 Nasal Cannula 2.00 12/12/17 19:59 98 12/12/17 19:57 97.3 90 18 129/56 (80) 97 12/12/17 19:57 Nasal Cannula 3.00 I/O 12/12/17 12/12/17 12/12/17 12/13/17 12/13/17 12/13/17 07:00 15:00 23:00 07:00 15:00 23:00 Intake Total 340 ml 420 ml 610 ml Output Total 400 ml Balance 340 ml 420 ml 210 ml Intake Oral 240 ml 420 ml 360 ml IV Total 100 ml 250 ml Output Urine Total 400 ml # Voids 5 5 # Bowel Movements 0 1 1 Result Diagram: 12/12/17 0633 12/12/17 0633 Imaging Last Impressions Thoracentesis Ultrasound 12/12/17 0600 Signed Impressions: CONCLUSION: 1. Subtle right thoracentesis with ultrasound guidance as described above. Chest X-Ray 12/12/17 0000 Signed Impressions: CONCLUSION: 1. No pneumothorax status post right thoracentesis. 2. Tiny residual right pleural effusion. 3. Cardiomegaly. 4. Bibasilar atelectasis. 5. Degenerative changes and scoliosis of the thoracolumbar spine. Objective Remarks GENERAL: female sitting up in bed NECK: Trachea midline. No JVD or lymphadenopathy. Supple, nontender, no meningeal signs. CARDIOVASCULAR: Regular rate and rhythm without murmurs, gallops, or rubs. RESPIRATORY: Bilateral wheezes. Diminished breath sounds in the right lower lung with crackles. GASTROINTESTINAL: Abdomen soft, non-tender, nondistended. No hepato-splenomegaly , or palpable masses. No guarding. MUSCULOSKELETAL: 2+ pitting edema of the bilateral lower extremities NEUROLOGICAL: Awake and alert. Cranial nerves II through XII intact. Motor and sensory grossly within normal limits. Normal speech. A/P Assessment and Plan New onset CHF Severe aortic stenosis BNP 2735 on admission Chest x-ray significant for pulmonary congestion and a right pleural effusion Echo reviewed patient with normal EF however with severe aortic stenosis and mitral regurgitation. Candidate for TAVR Cardiology consulted, appreciate recommendations. Pleural effusion May be secondary to CHF versus malignant effusion as patient with history of esophageal cancer Pulmonary consulted, appreciate recommendations Hypokalemia. Replace K. Monitor closely and replace as need. Pneumonia Chest x-ray shows diffuse interstitial prominence Azithromycin/cefepime Duo nebs Supplemental oxygen as needed Elevated troponin EKG shows sinus rhythm with nonspecific ST changes and no ST segment elevations or depressions, personally reviewed Initial troponin 0.13 ACS rule out pending; serial troponins/EKGs Hypertension Continue home medications GERD Continue home Protonix History of esophageal cancer Patient status post chemotherapy and radiation in 2012 Follows with her oncologist as outpatient Hypokalemia Status post p.o. repletion Monitor BMP DVT ppx: Lovenox Discussed with the patient, nurse Johnna Vasquez MD Dec 13, 2017 17:39
[2017-12-13] MEDS: PRAVASTATIN SOD 20 MG TAB PO SCH (20:52)
[2017-12-13] MEDS: AZITHROMYCIN INJ 500 MG in SODIUM CHLOR 0.9% 250 ML INJ 250 ML IV SCH (20:53)
[2017-12-13] MEDS ORDERED: DILTIAZEM HCL 25 MG/5 ML VIAL ONE (21:05)
[2017-12-13] MEDS ORDERED: DIGOXIN 0.5 MG/2 ML VIAL IV PUSH ONE (22:00)
[2017-12-13] MEDS: DILTIAZEM HCL 30 MG TAB PO SCH (22:29)
[2017-12-14] VITALS (12 sets, daily range): BP systolic 107–169; BP diastolic 53–73; PULSE 76–118; RESP 16–20; TEMP 97.5–98.8; O2SAT 91–98
[2017-12-14] MEDS: RESP: ALBUTEROL 2.5 MG/IPRATROPIUM 0.5 MG NEB (SCH) INH ×4 (02:36→21:07)
[2017-12-14] MEDS: DILTIAZEM HCL 30 MG TAB PO SCH ×4 (03:34→21:49)
[2017-12-14 04:51] LABS: AUTOMATED NEUTROPHIL # 5.4 TH/MM3 (1.8-7.7); BASOPHIL % 0.4 % (0.0-2.0); EOSINOPHIL % 0.3 % (0.0-4.0); HEMATOCRIT 24.7 % (35.0-46.0); HEMOGLOBIN 8.5 GM/DL (11.6-15.3); LYMPH % 12.5 % (9.0-44.0); LYMPHOCYTE # 0.9 TH/MM3 (1.0-4.8); MEAN CELL VOLUME 88.4 FL (80.0-100.0); MEAN CORPUSCULAR HEMOGLOBIN 30.2 PG (27.0-34.0); MEAN CORPUSCULAR HGB CONC 34.2 % (32.0-36.0); NEUT % 73.8 % (16.0-70.0); PLATELET COUNT 228 TH/MM3 (150-450); RED CELL DISTRIBUTION WIDTH 15.5 % (11.6-17.2); WHITE BLOOD COUNT 7.3 TH/MM3 (4.0-11.0)
[2017-12-14] MEDS: CEFEPIME INJ 2,000 MG in SODIUM CHLORIDE 0.9% INJ 100 ML IV SCH ×2 (05:02→19:20)
[2017-12-14 05:16] LABS: BICARBONATE 28.1 MEQ/L (21.0-32.0); CALCIUM 8.4 MG/DL (8.5-10.1); CREATININE 0.71 MG/DL (0.50-1.00)
--- NOTE | 2017-12-14 08:23 | HHI.PR ---
Subjective Remarks Very pleasant. Sometimes associated with shortness of breath and at times chest pain. No nausea no vomiting no diarrhea or constipation. Not eating much less appetite. No fever or chills. She is not coughing. Objective Vitals Vital Signs Date Time Temp Pulse Resp B/P (MAP) Pulse Ox O2 Delivery O2 Flow Rate FiO2 12/14/17 04:00 98.5 117 20 143/59 (87) 91 12/14/17 04:00 118 12/14/17 00:00 98.4 113 20 124/58 (80) 95 12/13/17 23:35 132 12/13/17 22:41 117 20 116/58 (77) 97 12/13/17 22:38 119 20 98/55 (69) 96 12/13/17 22:36 113 20 90/54 (66) 96 12/13/17 22:15 120 20 81/45 (57) 94 12/13/17 21:45 112 20 99/50 (66) 99 12/13/17 21:30 128 24 101/52 (68) 100 12/13/17 21:15 166 24 107/59 (75) 100 12/13/17 21:10 169 24 129/58 (81) 98 12/13/17 20:47 98.2 163 32 130/84 (99) 95 12/13/17 20:26 187 12/13/17 20:25 156 12/13/17 20:16 91 21 12/13/17 20:00 Room Air 12/13/17 19:45 103 12/13/17 16:19 93 21 12/13/17 16:08 98.3 90 17 123/59 (80) 93 12/13/17 16:00 98 12/13/17 12:27 97.4 80 18 104/50 (68) 100 12/13/17 12:00 79 12/13/17 08:32 98 Nasal Cannula 1.00 I/O 12/13/17 12/13/17 12/13/17 12/14/17 12/14/17 12/14/17 07:00 15:00 23:00 07:00 15:00 23:00 Intake Total 610 ml 720 ml 240 ml Output Total 400 ml 1000 ml 200 ml Balance 210 ml -280 ml 40 ml Intake Oral 360 ml 720 ml 240 ml IV Total 250 ml Output Urine Total 400 ml 1000 ml 200 ml # Voids 3 # Bowel Movements 1 1 0 Result Diagram: 12/14/17 0425 12/14/17 0425 Imaging Last Impressions Thoracentesis Ultrasound 12/12/17 0600 Signed Impressions: CONCLUSION: 1. Subtle right thoracentesis with ultrasound guidance as described above. Chest X-Ray 12/12/17 0000 Signed Impressions: CONCLUSION: 1. No pneumothorax status post right thoracentesis. 2. Tiny residual right pleural effusion. 3. Cardiomegaly. 4. Bibasilar atelectasis. 5. Degenerative changes and scoliosis of the thoracolumbar spine. Objective Remarks GENERAL: female sitting up in bed NECK: Trachea midline. No JVD or lymphadenopathy. Supple, nontender, no meningeal signs. CARDIOVASCULAR: Regular rate and rhythm without murmurs, gallops, or rubs. RESPIRATORY: Bilateral wheezes. Diminished breath sounds in the right lower lung with crackles. GASTROINTESTINAL: Abdomen soft, non-tender, nondistended. No hepato-splenomegaly , or palpable masses. No guarding. MUSCULOSKELETAL: 2+ pitting edema of the bilateral lower extremities NEUROLOGICAL: Awake and alert. Cranial nerves II through XII intact. Motor and sensory grossly within normal limits. Normal speech. A/P Assessment and Plan Afib RVR Received digoxin Started on amio gtt per protocol and transition to to PO amio Cardizem PO New onset CHF 2/2 severe aortic stenosis. Severe aortic stenosis BNP 2735 on admission Chest x-ray significant for pulmonary congestion and a right pleural effusion Echo reviewed patient with normal EF however with severe aortic stenosis and mitral regurgitation. Cardiology consulted, appreciate recommendations. CT surgery consulted as well . Candidate for TAVR TAVR workup. [facility] on Sunday am. PFTs. NPO after MN Sunday night Lasix IV changed to PO. Pleural effusion May be secondary to CHF versus malignant effusion as patient with history of esophageal cancer Pulmonary consulted, appreciate recommendations Hypokalemia. Replace K. Monitor closely and replace as need. Pneumonia Chest x-ray shows diffuse interstitial prominence Azithromycin/cefepime Duo nebs Supplemental oxygen as needed Elevated troponin EKG shows sinus rhythm with nonspecific ST changes and no ST segment elevations or depressions, personally reviewed Initial troponin 0.13 ACS rule out pending; serial troponins/EKGs Anemia Ceck FOBT. Check iron studies, ferritin b12 and folate. Patient dropped 2gm/dL. Start iron sulfate. Patient needs evaluation for anemia prior to plavix/asa. Will consider GI consult if FOBT positive , also hem onc consult if fobt neg Hypertension Continue home medications GERD Continue home Protonix History of esophageal cancer Patient status post chemotherapy and radiation in 2012 Follows with her oncologist as outpatient Hypokalemia Status post p.o. repletion Monitor BMP DVT ppx: Lovenox Discussed with the patient, nurse DC plan: TAVR workup. N.p.o. Sunday night after midnight. Plan for cardiac cath on Sunday by Dr. Shane. Plan for TAVR. Possible DC planning then early next week. Johnna Vasquez MD Dec 14, 2017 08:23
[2017-12-14] MEDS ORDERED: AMIODARONE INJ 150 MG in DEXTROSE 5% IN WATER 100ML INJ 97 ML IV ONE ×2 (08:44)
[2017-12-14] MEDS ORDERED: SODIUM CHLORIDE 0.9% FLUSH 10 ML FLUSH IVF PRN (08:45)
--- NOTE | 2017-12-14 08:55 | PD.CARD.PN ---
Subjective Subjective Remarks The patient had episodes of A. fib with RVR overnight, rate up to 160, rate better today after receiving IV digoxin 1 and starting diltiazem. The patient denies any chest pain, shortness breath, palpitations, lightheadedness. (Eladio Denis) Objective Medications Current Medications Medications (Trade) Dose Ordered Sig/Tiffany Route Start Time Stop Time Status Last Admin (Catapres) 0.1 mg Q4H PRN PO 12/11/17 18:15 12/11/17 20:53 (Tylenol) 650 mg Q4H PRN PO 12/11/17 18:15 (Zofran Odt) 4 mg Q4H PRN PO 12/11/17 18:45 (Reglan Inj) 5 mg Q6H PRN IV PUSH 12/11/17 18:15 (Tylenol) 650 mg Q6H PRN PO 12/11/17 18:15 (Percocet 5-325 Mg) 1 tab Q6H PRN PO 12/11/17 18:15 (Percocet 10-325 Mg) 1 tab Q6H PRN PO 12/11/17 18:15 (Morphine Inj) 2 mg Q3H PRN IV PUSH 12/11/17 18:15 (Morphine Inj) 4 mg Q3H PRN IV PUSH 12/11/17 18:15 (Morphine Inj) 4 mg Q3H PRN IV PUSH 12/11/17 18:15 (Narcan Inj) 0.4 mg UNSCH PRN IV PUSH 12/11/17 18:15 (Mary-Colace) 1 tab BID PO 12/11/17 21:00 12/13/17 20:52 (Milk Of Magnesia Liq) 30 ml Q12H PRN PO 12/11/17 18:15 (Senokot) 17.2 mg Q12H PRN PO 12/11/17 18:15 (Dulcolax Supp) 10 mg DAILY PRN RECTAL 12/11/17 18:15 (Lactulose Liq) 30 ml DAILY PRN PO 12/11/17 18:15 (NS Flush) 2 ml UNSCH PRN IV FLUSH 12/11/17 18:15 12/13/17 22:35 (NS Flush) 2 ml BID IV FLUSH 12/11/17 21:00 12/13/17 20:53 Cefepime HCl 2000 mg/Sodium Chloride 100 ml @ 200 mls/hr Q12H IV 12/12/17 06:00 12/14/17 05:02 Azithromycin 500 mg/Sodium Chloride 250 ml @ 250 mls/hr Q24H IV 12/12/17 20:00 12/13/17 20:53 (Duoneb Neb) 1 ampule Q6HR NEB INH 12/11/17 22:00 12/14/17 08:46 (Duoneb Neb) 1 ampule Q4HR NEB PRN INH 12/11/17 18:15 (Mucinex Er) 600 mg BID PO 12/11/17 21:00 12/13/17 20:52 (Lasix Inj) 20 mg BID@ IV PUSH 12/12/17 09:00 12/13/17 17:04 (KCl) 20 meq Q12HR PO 12/11/17 21:00 12/13/17 20:52 (Pravachol) 20 mg HS PO 12/11/17 21:00 12/13/17 20:52 (Protonix) 40 mg DAILY PO 12/12/17 09:00 12/13/17 08:32 (Metamucil Smooth Texture Sf/ Gf Pkt) 1 pkt TID PRN PO 12/11/17 20:30 (Pepcid) 20 mg DAILY PO 12/12/17 09:00 12/13/17 08:32 (Lopressor) 50 mg Q12HR PO 12/12/17 09:00 12/13/17 20:52 (Ferrous Sulfate) 325 mg DAILY PO 12/12/17 16:00 12/13/17 08:32 (Cardizem) 30 mg Q6H PO 12/13/17 22:00 12/14/17 03:34 (Ferrous Sulfate) 325 mg DAILY PO 12/14/17 09:00 UNV Amiodarone HCl 450 mg/Dextrose 250 ml @ 33 mls/hr Q7H35M IV 12/14/17 08:59 UNV (NS Flush) 2 ml UNSCH PRN IVF 12/14/17 08:45 UNV Amiodarone HCl 150 mg/Dextrose 100 ml @ 100 mls/hr Q1H ONCE IV 12/14/17 08:44 12/14/17 09:43 UNV Vital Signs / I&O Vital Signs Date Time Temp Pulse Resp B/P (MAP) Pulse Ox O2 Delivery O2 Flow Rate FiO2 12/14/17 08:48 94 12/14/17 04:00 98.5 117 20 143/59 (87) 91 12/14/17 04:00 118 12/14/17 00:00 98.4 113 20 124/58 (80) 95 12/13/17 23:35 132 12/13/17 22:41 117 20 116/58 (77) 97 12/13/17 22:38 119 20 98/55 (69) 96 12/13/17 22:36 113 20 90/54 (66) 96 12/13/17 22:15 120 20 81/45 (57) 94 12/13/17 21:45 112 20 99/50 (66) 99 12/13/17 21:30 128 24 101/52 (68) 100 12/13/17 21:15 166 24 107/59 (75) 100 12/13/17 21:10 169 24 129/58 (81) 98 12/13/17 20:47 98.2 163 32 130/84 (99) 95 12/13/17 20:26 187 12/13/17 20:25 156 12/13/17 20:16 91 21 12/13/17 20:00 Room Air 12/13/17 19:45 103 12/13/17 16:19 93 21 12/13/17 16:08 98.3 90 17 123/59 (80) 93 12/13/17 16:00 98 12/13/17 12:27 97.4 80 18 104/50 (68) 100 12/13/17 12:00 79 I/O 12/13/17 12/13/17 12/13/17 12/14/17 12/14/17 12/14/17 07:00 15:00 23:00 07:00 15:00 23:00 Intake Total 610 ml 720 ml 240 ml Output Total 400 ml 1000 ml 200 ml Balance 210 ml -280 ml 40 ml Intake Oral 360 ml 720 ml 240 ml IV Total 250 ml Output Urine Total 400 ml 1000 ml 200 ml # Voids 3 # Bowel Movements 1 1 0 Physical Exam GENERAL: Well-developed well-nourished. In no acute distress. NECK: No carotid bruits. No JVD. CARDIOVASCULAR: Regular rate and rhythm. 3/6 systolic ejection murmur appreciated. RESPIRATORY: No accessory muscle use. Clear to auscultation. MUSCULOSKELETAL: No clubbing or cyanosis. No edema. NEUROLOGICAL: Awake and alert. Normal speech. Laboratory Laboratory Tests Test 12/14/17 04:25 White Blood Count 7.3 TH/MM3 Red Blood Count 2.80 MIL/MM3 Hemoglobin 8.5 GM/DL Hematocrit 24.7 % Mean Corpuscular Volume 88.4 FL Mean Corpuscular Hemoglobin 30.2 PG Mean Corpuscular Hemoglobin Concent 34.2 % Red Cell Distribution Width 15.5 % Platelet Count 228 TH/MM3 Mean Platelet Volume 8.0 FL Neutrophils (%) (Auto) 73.8 % Lymphocytes (%) (Auto) 12.5 % Monocytes (%) (Auto) 13.0 % Eosinophils (%) (Auto) 0.3 % Basophils (%) (Auto) 0.4 % Neutrophils # (Auto) 5.4 TH/MM3 Lymphocytes # (Auto) 0.9 TH/MM3 Monocytes # (Auto) 1.0 TH/MM3 Eosinophils # (Auto) 0.0 TH/MM3 Basophils # (Auto) 0.0 TH/MM3 CBC Comment DIFF FINAL Differential Comment Blood Urea Nitrogen 21 MG/DL Creatinine 0.71 MG/DL Random Glucose 119 MG/DL Calcium Level 8.4 MG/DL Sodium Level 140 MEQ/L Potassium Level 3.3 MEQ/L Chloride Level 103 MEQ/L Carbon Dioxide Level 28.1 MEQ/L Anion Gap 9 MEQ/L Estimat Glomerular Filtration Rate 78 ML/MIN Imaging Last Impressions Thoracentesis Ultrasound 12/12/17 0600 Signed Impressions: CONCLUSION: 1. Subtle right thoracentesis with ultrasound guidance as described above. Chest X-Ray 12/12/17 0000 Signed Impressions: CONCLUSION: 1. No pneumothorax status post right thoracentesis. 2. Tiny residual right pleural effusion. 3. Cardiomegaly. 4. Bibasilar atelectasis. 5. Degenerative changes and scoliosis of the thoracolumbar spine. (Eladio Denis) Assessment and Plan Assessment and Plan 87-year-old female with a past medical history of HTN, HLD, GERD, pleural effusion with recent thoracentesis, history of esophageal cancer status post radiation in 2013 who presented for shortness of breath Acute diastolic CHF: Likely secondary to severe valve disease. Better compensated now after IV diuresis, change to oral Lasix, monitor I's and O's. New onset A. fib with RVR: Converted back to A. fib last night, rate is currently controlled. Likely will not tolerate RVR due to comorbidities, will try to chemically convert with IV amiodarone GTT today. Continue diltiazem and metoprolol for rate control, stop lisinopril. Chadsvasc 4 for due to age, gender, hypertension, meets criteria for full anticoagulation, hemoglobin trending down, hold off on anticoagulation for now. Severe symptomatic aortic stenosis: Has some concomitant moderate MR as well, may improve with diuresis. Likely not a surgical candidate. CT surgeon and TAVR coordinator consulted, workup in progress, possible [facility] this admission. Abnormal EKG: Possible ischemic changes, will need [facility] prior to AVR. Normocytic anemia: Hemoglobin has trended down from 10.3-8.5. Check stool guaiac. Started ferrous sulfate. Discussed Condition With Patient, Dr. Shane (Eladio Denis) Assessment and Plan continue diuretic, gentle. change to PO afib RVR - amio gtt to PO amio severe - not surgical candidate. discussed TAVR, she is open to consideration. will discuss with daughter. begin TAVR workup. [facility] sunday am. PFTs. CT surgery input appreciated. hopefully MR may improve with reduce LV outflow resistance. NPO p MN sunday night Possible DC planning then early next week. needs evaluation for anemia prior to plavix/asa. Hb dropped 2 gm/dL. start FeSO4. guiaic. consider GI consult (Abhijit Shane MD) Eladio Denis Dec 14, 2017 08:55 Abhijit Shane MD Dec 14, 2017 12:26
[2017-12-14] MEDS ORDERED: FERROUS SULFATE 325 MG (65 MG ELEMENTAL IRON) TAB PO SCH (09:00)
[2017-12-14] MEDS: DOCUSATE SODIUM 50 MG/SENNA 8.6 MG TAB PO SCH ×2 (09:51→21:49)
[2017-12-14] MEDS: FERROUS SULFATE 325 MG (65 MG ELEMENTAL IRON) TAB PO SCH (09:51)
[2017-12-14] MEDS: POTASSIUM CHLORIDE 20 MEQ CONTROLLED RELEASE TAB PO SCH ×2 (09:51→21:49)
[2017-12-14] MEDS: PANTOPRAZOLE SOD 40 MG DELAYED RELEASE TAB PO SCH (09:52)
[2017-12-14] MEDS: FUROSEMIDE 20 MG TAB PO SCH (09:52)
[2017-12-14] MEDS: METOPROLOL TARTRATE 50 MG TAB PO SCH ×2 (09:52→21:49)
[2017-12-14] MEDS: guaiFENesin E.R. 600 MG TAB PO SCH ×2 (09:52→21:49)
[2017-12-14] MEDS: SODIUM CHLORIDE 0.9% FLUSH 10 ML FLUSH IV FLUSH SCH ×2 (09:53→21:49)
[2017-12-14] MEDS: FAMOTIDINE 20 MG TAB PO SCH (09:53)
[2017-12-14] MEDS: AMIODARONE INJ 450 MG in SODIUM CHLOR 0.9% (EXCEL) INJ 250 ML IV SCH ×3 (11:48→23:45)
--- NOTE | 2017-12-14 15:01 | PD.CONS ---
History of Present Illness Service CT Surgery Consult Requested By Dr. Shane Reason for Consult Severe symptomatic aortic stenosis, diastolic heart failure Primary Care Physician Danny Sampson MD Diagnoses: History of Present Illness 87-year-old female with significant h/o esophageal cancer and 25lb weight loss presents to the ED with increased fatigue and dyspnea. She was found to have severe on ECHO with moderate MR and severe TR. She also has an elevated BNP. She is frail and cachectic using a walker to ambulate. She lives with her . she is being considered for AVR or TAVR. She states she has had increasingly worsening shortness of breath 2 weeks and accompanying fatigue/ weakness. . She denies any chest pain. No abdominal pain. No nausea/vomiting/ diarrhea. No lateralizing signs/symptoms. Review of Systems Constitutional: COMPLAINS OF: Fatigue, Weight loss, Change in appetite, DENIES : Diaphoretic episodes, Fever, Weight gain, Chills, Dizziness, Night Sweats Endocrine: DENIES: Abnorml menstrual pattern, Heat/cold intolerance, Polydipsia , Polyuria, Polyphagia Eyes: DENIES: Blurred vision, Diplopia, Eye inflammation, Eye pain, Vision loss , Photosensitivity, Double Vision Ears, nose, mouth, throat: DENIES: Tinnitus, Hearing loss, Vertigo, Nasal discharge, Oral lesions, Throat pain, Hoarseness, Ear Pain, Running Nose, Epistaxis, Sinus Pain, Toothache, Odynophagia Respiratory: COMPLAINS OF: Cough, Shortness of breath, DENIES: Apneas, Snoring , Wheezing, Hemoptysis, Sputum production Cardiovascular: COMPLAINS OF: Dyspnea on Exertion, Lower Extremity Edema, DENIES: Chest pain, Palpitations, Syncope, PND, Orthopnea, Claudication Gastrointestinal: DENIES: Abdominal pain, Black stools, Bloody stools, Constipation, Diarrhea, Nausea, Vomiting, Difficulty Swallowing, Anorexia Genitourinary: DENIES: Abnormal vaginal bleeding, Dysmenorrhea, Dyspareunia, Sexual dysfunction, Urinary frequency, Urinary incontinence, Urgency, Hematuria , Dysuria, Nocturia, Vaginal discharge Musculoskeletal: COMPLAINS OF: Joint pain, Stiffness, DENIES: Muscle aches, Joint Swelling, Back pain, Neck pain Integumentary: DENIES: Abnormal pigmentation, Pruritus, Rash, Nail changes, Breast masses, Breast skin changes, Nipple discharge Hematologic/lymphatic: DENIES: Bruising, Lymphadenopathy Immunologic/allergic: DENIES: Eczema, Urticaria Neurologic: COMPLAINS OF: Abnormal gait, Poor Balance, DENIES: Headache, Localized weakness, Paresthesias, Seizures, Speech Problems, Tremor Psychiatric: DENIES: Anxiety, Confusion, Mood changes, Depression, Hallucinations, Agitation, Suicidal Ideation, Homicidal Ideation, Delusions Past Family Social History Allergies: Coded Allergies: Sulfa (Sulfonamide Antibiotics) (Verified Allergy, Intermediate, 12/11/17) clindamycin (Verified Allergy, Intermediate, 12/11/17) penicillin G (Verified Allergy, Intermediate, 12/11/17) Past Medical History Past Medical History esophageal cancer, recent pleural effusion status post thoracentesis requiring chest tube placement secondary to pneumothorax, hypertension and GERD Past Surgical History Tonsillectomy Port placement Reported Medications Reported Meds & Active Scripts Active Reported Zantac (Ranitidine HCl) 150 Mg Tab 150 Mg PO DAILY Metamucil Original Texture (Psyllium Hydrophilic Mucilloid) 3.4 Gram/7 Gram Pow 1 Scoop PO TID PRN 1 rounded TEASPOON in 8 oz of liquid at the first sign of irregularity. [Calcium] 800 Mg PO DAILY Lovastatin 20 Mg Tab 20 Mg PO HS Lisinopril-Hctz 10-12.5 Mg Tab 1 Tab PO DAILY Atenolol 25 Mg Tab 25 Mg PO BID Verapamil ER 24 HR (Verapamil HCl) 240 Mg Tab 240 Mg PO DAILY Pantoprazole (Pantoprazole Sodium) 40 Mg Tab 40 Mg PO DAILY Family History Mother with CAD Social History Remote history of tobacco. Denies alcohol and illicit drugs. Physical Exam Vital Signs Vital Signs Date Time Temp Pulse Resp B/P (MAP) Pulse Ox O2 Delivery O2 Flow Rate FiO2 12/14/17 12:00 98.8 79 18 118/55 (76) 98 12/14/17 11:48 84 116/66 12/14/17 09:42 90 143/72 12/14/17 08:48 94 12/14/17 08:00 98.7 90 16 143/72 (95) 93 12/14/17 07:38 88 12/14/17 04:00 98.5 117 20 143/59 (87) 91 12/14/17 04:00 118 12/14/17 00:00 98.4 113 20 124/58 (80) 95 6/14/18 23:35 132 12/13/17 22:41 117 20 116/58 (77) 97 12/13/17 22:38 119 20 98/55 (69) 96 12/13/17 22:36 113 20 90/54 (66) 96 12/13/17 22:15 120 20 81/45 (57) 94 12/13/17 21:45 112 20 99/50 (66) 99 12/13/17 21:30 128 24 101/52 (68) 100 12/13/17 21:15 166 24 107/59 (75) 100 12/13/17 21:10 169 24 129/58 (81) 98 12/13/17 20:47 98.2 163 32 130/84 (99) 95 12/13/17 20:26 187 12/13/17 20:25 156 12/13/17 20:16 91 21 12/13/17 20:00 Room Air 12/13/17 19:45 103 12/13/17 16:19 93 21 12/13/17 16:08 98.3 90 17 123/59 (80) 93 12/13/17 16:00 98 Physical Exam GENERAL: This is a cachectic frail patient, in no apparent distress. SKIN: No rashes, ecchymoses or lesions. Cool and dry. HEAD: Atraumatic. Normocephalic. No temporal or scalp tenderness. EYES: Pupils equal round and reactive. Extraocular motions intact. No scleral icterus. No injection or drainage. ENT: Nose without bleeding, purulent drainage or septal hematoma. Throat without erythema, tonsillar hypertrophy or exudate. Uvula midline. Airway patent. NECK: Trachea midline. No JVD or lymphadenopathy. Supple, nontender, no meningeal signs. CARDIOVASCULAR: Regular rate and rhythm with 3/6 BRY at the RUSB. RESPIRATORY: Clear to auscultation. Breath sounds equal bilaterally. No wheezes , rales, or rhonchi. GASTROINTESTINAL: Abdomen soft, non-tender, nondistended. No hepato-splenomegaly , or palpable masses. No guarding. MUSCULOSKELETAL: Extremities without clubbing, cyanosis, or edema. No joint tenderness, effusion, or edema noted. No calf tenderness. Negative Homans sign bilaterally. NEUROLOGICAL: Awake and alert. Cranial nerves II through XII intact. Motor and sensory grossly within normal limits. Five out of 5 muscle strength in all muscle groups. Normal speech. Laboratory Laboratory Tests Test 12/14/17 04:25 White Blood Count 7.3 Red Blood Count 2.80 Hemoglobin 8.5 Hematocrit 24.7 Mean Corpuscular Volume 88.4 Mean Corpuscular Hemoglobin 30.2 Mean Corpuscular Hemoglobin Concent 34.2 Red Cell Distribution Width 15.5 Platelet Count 228 Mean Platelet Volume 8.0 Neutrophils (%) (Auto) 73.8 Lymphocytes (%) (Auto) 12.5 Monocytes (%) (Auto) 13.0 Eosinophils (%) (Auto) 0.3 Basophils (%) (Auto) 0.4 Neutrophils # (Auto) 5.4 Lymphocytes # (Auto) 0.9 Monocytes # (Auto) 1.0 Eosinophils # (Auto) 0.0 Basophils # (Auto) 0.0 CBC Comment DIFF FINAL Differential Comment Blood Urea Nitrogen 21 Creatinine 0.71 Random Glucose 119 Calcium Level 8.4 Sodium Level 140 Potassium Level 3.3 Chloride Level 103 Carbon Dioxide Level 28.1 Anion Gap 9 Estimat Glomerular Filtration Rate 78 Date/Time Source Procedure Growth Status 12/11/17 19:00 Blood Peripheral Aerobic Blood Culture - Preliminary NO GROWTH IN 3 DAYS Resulted 12/11/17 19:00 Blood Peripheral Anaerobic Blood Culture - Preliminary NO GROWTH IN 3 DAYS Resulted 12/12/17 10:30 Fluid Pleural Fluid Fungal Smear - Final NO FUNGAL ELEMENTS SEEN. Resulted 12/12/17 10:30 Fluid Pleural Fluid Fungal Culture Pending Resulted Result Diagram: 12/14/17 0425 12/14/17 0425 Imaging Last Impressions Thoracentesis Ultrasound 12/12/17 0600 Signed Impressions: CONCLUSION: 1. Subtle right thoracentesis with ultrasound guidance as described above. Chest X-Ray 12/12/17 0000 Signed Impressions: CONCLUSION: 1. No pneumothorax status post right thoracentesis. 2. Tiny residual right pleural effusion. 3. Cardiomegaly. 4. Bibasilar atelectasis. 5. Degenerative changes and scoliosis of the thoracolumbar spine. Course The patient is s/p thoracentesis and is currently resting comfortably pain-free. Assessment and Plan Problem List: (1) Aortic stenosis ICD Codes: I35.0 - Nonrheumatic aortic (valve) stenosis Status: Acute (2) Diastolic heart failure ICD Codes: I50.30 - Unspecified diastolic (congestive) heart failure Status: Acute Assessment and Plan 87y/o female with severe , moderate MR, severe TR presents with class 4 symptoms. She is unable to accomplish ADLs without help and requires a walker for ambulation. She stopped driving several years ago. She also appears cachectic. She has not undergone heart catheterization yet, so her coronary artery status is unknown. She would NOT be a candidate for any open heart procedure. I discussed this with Dr. Shane and we will evaluate her for possible TAVR. Will follow. Problem Qualifiers (1) Aortic stenosis: Qualified Codes: I35.0 - Nonrheumatic aortic (valve) stenosis (2) Diastolic heart failure: Qualified Codes: I50.33 - Acute on chronic diastolic (congestive) heart failure Iris Trent MD Dec 14, 2017 15:00
[2017-12-14] MEDS: cloNIDine HCL 0.1 MG TAB PO PRN (16:55)
--- NOTE | 2017-12-14 18:34 | HHI.PR ---
Subjective Remarks 87 [address] eff, lung infilt Had TC, 900 cc fluid removed Breathing better Cultures of pl fluid negative Objective Vital Signs Vital Signs Date Time Temp Pulse Resp B/P (MAP) Pulse Ox O2 Delivery O2 Flow Rate FiO2 12/14/17 15:26 93 21 12/14/17 12:00 98.8 79 18 118/55 (76) 98 12/14/17 11:48 84 116/66 12/14/17 11:35 79 12/14/17 09:42 90 143/72 12/14/17 08:48 94 12/14/17 08:00 98.7 90 16 143/72 (95) 93 12/14/17 08:00 Room Air 12/14/17 07:38 88 12/14/17 04:00 98.5 117 20 143/59 (87) 91 12/14/17 04:00 118 12/14/17 00:00 98.4 113 20 124/58 (80) 95 12/13/17 23:35 132 12/13/17 22:41 117 20 116/58 (77) 97 12/13/17 22:38 119 20 98/55 (69) 96 12/13/17 22:36 113 20 90/54 (66) 96 12/13/17 22:15 120 20 81/45 (57) 94 12/13/17 21:45 112 20 99/50 (66) 99 12/13/17 21:30 128 24 101/52 (68) 100 12/13/17 21:15 166 24 107/59 (75) 100 12/13/17 21:10 169 24 129/58 (81) 98 12/13/17 20:47 98.2 163 32 130/84 (99) 95 12/13/17 20:26 187 12/13/17 20:25 156 12/13/17 20:16 91 21 12/13/17 20:00 Room Air 12/13/17 19:45 103 I/O 12/13/17 12/13/17 12/13/17 12/14/17 12/14/17 12/14/17 07:00 15:00 23:00 07:00 15:00 23:00 Intake Total 610 ml 720 ml 240 ml Output Total 400 ml 1000 ml 200 ml Balance 210 ml -280 ml 40 ml Intake Oral 360 ml 720 ml 240 ml IV Total 250 ml Output Urine Total 400 ml 1000 ml 200 ml # Voids 3 # Bowel Movements 1 1 0 Result Diagram: 12/14/1742412/14/17424 Objective Remarks GENERAL: Frail elderly WF, NAD SKIN: Warm and dry. HEAD: Normocephalic. EYES: No scleral icterus. No injection or drainage. NECK: Supple, trachea midline. No JVD or lymphadenopathy. CARDIOVASCULAR: Regular rate and rhythm without murmurs, gallops, or rubs. RESPIRATORY: Breath sounds equal bilaterally. No accessory muscle use. GASTROINTESTINAL: Abdomen soft, non-tender, nondistended. MUSCULOSKELETAL: No cyanosis, or edema. BACK: Nontender without obvious deformity. No CVA tenderness. A/P Assessment and Plan IMPRESSION: 1. Left pleural effusion. She does have a history of pneumothorax in the past, had a chest tube placed on the right side before. 2. Pneumonia. 3. Weight loss. 4. Hypertension. 5. History of cancer of the esophagus PLAN: Diurease Cont Abx Supplement 02 Wean 02 to keep sat >90% evaluating for TAVR Stable from Pulm standpoint Cullen Neumann MD Dec 14, 2017 18:34
[2017-12-14 21:19] LABS: TOTAL IRON BINDING CAPACITY 220 MCG/DL (250-450)
[2017-12-14 21:45] LABS: % SATURATION IRON PROFILE 7.7 % (20-50); FERRITIN 99 NG/ML (8-252); FOLATE 12.2 NG/ML (3.1-17.5); IRON (FE) 17 MCG/DL (50-170)
[2017-12-14] MEDS: AZITHROMYCIN INJ 500 MG in SODIUM CHLOR 0.9% 250 ML INJ 250 ML IV SCH (21:48)
[2017-12-14] MEDS: PRAVASTATIN SOD 20 MG TAB PO SCH (21:49)
[2017-12-15] VITALS (9 sets, daily range): BP systolic 141–176; BP diastolic 64–74; PULSE 71–143; RESP 20–28; TEMP 96.7–98.7; O2SAT 92–97
[2017-12-15] MEDS: RESP: ALBUTEROL 2.5 MG/IPRATROPIUM 0.5 MG NEB (SCH) INH ×4 (03:31→20:30)
[2017-12-15] MEDS: DILTIAZEM HCL 30 MG TAB PO SCH ×4 (04:38→21:07)
[2017-12-15] MEDS: CEFEPIME INJ 2,000 MG in SODIUM CHLORIDE 0.9% INJ 100 ML IV SCH (04:38)
--- NOTE | 2017-12-15 08:30 | PD.CARD.PN ---
Subjective Subjective Remarks no complaints lying in bed comfortably breathing improved Objective Medications Current Medications Medications (Trade) Dose Ordered Sig/Tiffany Route Start Time Stop Time Status Last Admin (Catapres) 0.1 mg Q4H PRN PO 12/11/17 18:15 12/14/17 16:55 (Tylenol) 650 mg Q4H PRN PO 12/11/17 18:15 (Zofran Odt) 4 mg Q4H PRN PO 12/11/17 18:45 (Reglan Inj) 5 mg Q6H PRN IV PUSH 12/11/17 18:15 (Tylenol) 650 mg Q6H PRN PO 12/11/17 18:15 (Percocet 5-325 Mg) 1 tab Q6H PRN PO 12/11/17 18:15 (Percocet 10-325 Mg) 1 tab Q6H PRN PO 12/11/17 18:15 (Morphine Inj) 2 mg Q3H PRN IV PUSH 12/11/17 18:15 (Morphine Inj) 4 mg Q3H PRN IV PUSH 12/11/17 18:15 (Morphine Inj) 4 mg Q3H PRN IV PUSH 12/11/17 18:15 (Narcan Inj) 0.4 mg UNSCH PRN IV PUSH 12/11/17 18:15 (Mary-Colace) 1 tab BID PO 12/11/17 21:00 12/14/17 21:49 (Milk Of Magnesia Liq) 30 ml Q12H PRN PO 12/11/17 18:15 (Senokot) 17.2 mg Q12H PRN PO 12/11/17 18:15 (Dulcolax Supp) 10 mg DAILY PRN RECTAL 12/11/17 18:15 (Lactulose Liq) 30 ml DAILY PRN PO 12/11/17 18:15 (NS Flush) 2 ml UNSCH PRN IV FLUSH 12/11/17 18:15 12/13/17 22:35 (NS Flush) 2 ml BID IV FLUSH 12/11/17 21:00 12/14/17 21:49 Cefepime HCl 2000 mg/Sodium Chloride 100 ml @ 200 mls/hr Q12H IV 12/12/17 06:00 12/15/17 04:38 Azithromycin 500 mg/Sodium Chloride 250 ml @ 250 mls/hr Q24H IV 12/12/17 20:00 12/14/17 21:48 (Duoneb Neb) 1 ampule Q6HR NEB INH 12/11/17 22:00 12/15/17 03:31 (Duoneb Neb) 1 ampule Q4HR NEB PRN INH 12/11/17 18:15 (Mucinex Er) 600 mg BID PO 12/11/17 21:00 12/14/17 21:49 (KCl) 20 meq Q12HR PO 12/11/17 21:00 12/14/17 21:49 (Pravachol) 20 mg HS PO 12/11/17 21:00 12/14/17 21:49 (Protonix) 40 mg DAILY PO 12/12/17 09:00 12/14/17 09:52 (Metamucil Smooth Texture Sf/ Gf Pkt) 1 pkt TID PRN PO 12/11/17 20:30 (Pepcid) 20 mg DAILY PO 12/12/17 09:00 12/14/17 09:53 (Lopressor) 50 mg Q12HR PO 12/12/17 09:00 12/14/17 21:49 (Cardizem) 30 mg Q6H PO 12/13/17 22:00 12/15/17 04:38 (Ferrous Sulfate) 325 mg DAILY PO 12/14/17 09:00 Amiodarone HCl 450 mg/Sodium Chloride 259 ml @ 33 mls/hr Q7H51M IV 12/14/17 08:59 12/14/17 21:48 (NS Flush) 2 ml UNSCH PRN IVF 12/14/17 08:45 (Lasix) 20 mg DAILY PO 12/14/17 09:00 12/14/17 09:52 Vital Signs / I&O Vital Signs Date Time Temp Pulse Resp B/P (MAP) Pulse Ox O2 Delivery O2 Flow Rate FiO2 12/15/17 04:00 96.7 143 20 141/69 (93) 93 12/15/17 04:00 81 12/15/17 03:33 92 12/15/17 00:00 98.7 71 28 147/64 (91) 93 12/15/17 00:00 72 12/14/17 21:48 98 107/58 12/14/17 20:38 97.5 78 16 107/53 (71) 91 12/14/17 20:00 97 12/14/17 20:00 Room Air 12/14/17 16:00 97.9 84 18 169/73 (105) 94 12/14/17 15:35 76 12/14/17 15:26 93 21 12/14/17 12:00 98.8 79 18 118/55 (76) 98 12/14/17 11:48 84 116/66 12/14/17 11:35 79 12/14/17 09:42 90 143/72 12/14/17 08:48 94 I/O 12/14/17 12/14/17 12/14/17 12/15/17 12/15/17 12/15/17 07:00 15:00 23:00 07:00 15:00 23:00 Intake Total 240 ml 100 ml 610 ml 304 ml Output Total 200 ml 600 ml Balance 40 ml 100 ml 610 ml -296 ml Intake Oral 240 ml 360 ml IV Total 100 ml 250 ml 304 ml Output Urine Total 200 ml 600 ml # Voids 3 4 # Bowel Movements 0 0 Physical Exam HEAD: Normocephalic. EYES: No scleral icterus. No injection or drainage. NECK: Supple, trachea midline. No JVD or lymphadenopathy. CARDIOVASCULAR: Regular rate and rhythm +3/6 SM RESPIRATORY: Breath sounds equal bilaterally. No accessory muscle use. GASTROINTESTINAL: Abdomen soft, non-tender, nondistended. MUSCULOSKELETAL: No cyanosis, or edema. BACK: Nontender without obvious deformity. No CVA tenderness. Imaging Last Impressions Thoracentesis Ultrasound 12/12/17 0600 Signed Impressions: CONCLUSION: 1. Subtle right thoracentesis with ultrasound guidance as described above. Chest X-Ray 12/12/17 0000 Signed Impressions: CONCLUSION: 1. No pneumothorax status post right thoracentesis. 2. Tiny residual right pleural effusion. 3. Cardiomegaly. 4. Bibasilar atelectasis. 5. Degenerative changes and scoliosis of the thoracolumbar spine. Assessment and Plan Assessment and Plan paroxysmal afib - occasional rvr. convert to PO amio. severe - not surgical candidate. TAVR workup in progress. tenative LR sunday. anemia - Hb dropping. no obvious bleed. guiaic pending. iron deficiency. Cr normal. WBC/plt normal. likely GI source. consult GT. needs evaluation for anemia prior to plavix/asa Abhijit Shane MD Dec 15, 2017 08:30
[2017-12-15] MEDS: FERROUS SULFATE 325 MG (65 MG ELEMENTAL IRON) TAB PO SCH ×2 (08:57→21:07)
[2017-12-15] MEDS: SODIUM CHLORIDE 0.9% FLUSH 10 ML FLUSH IV FLUSH SCH ×2 (08:57→21:07)
[2017-12-15] MEDS: AMIODARONE 200 MG TAB PO SCH (08:57)
[2017-12-15] MEDS: guaiFENesin E.R. 600 MG TAB PO SCH ×2 (08:58→21:07)
[2017-12-15] MEDS: POTASSIUM CHLORIDE 20 MEQ CONTROLLED RELEASE TAB PO SCH ×2 (08:58→21:07)
[2017-12-15] MEDS: PANTOPRAZOLE SOD 40 MG DELAYED RELEASE TAB PO SCH (08:59)
[2017-12-15] MEDS: FUROSEMIDE 20 MG TAB PO SCH (09:00)
[2017-12-15] MEDS: DOCUSATE SODIUM 50 MG/SENNA 8.6 MG TAB PO SCH ×2 (09:00→21:07)
[2017-12-15] MEDS: FAMOTIDINE 20 MG TAB PO SCH (09:00)
[2017-12-15] MEDS: METOPROLOL TARTRATE 50 MG TAB PO SCH ×2 (09:00→21:07)
--- NOTE | 2017-12-15 09:56 | HHI.PR ---
Subjective Remarks Patient with shortness of breath, intermittent chest pain. She is very weak. No signs of bleeding. However found with anemia. Anemia workup. Discussed with the patient and also with her later today. Patient and family decided that for hospice evaluation. They want all procedures on hold. Patient however wants to be full code at this time Objective Vitals Vital Signs Date Time Temp Pulse Resp B/P (MAP) Pulse Ox O2 Delivery O2 Flow Rate FiO2 12/15/17 08:00 98.6 85 20 152/65 (94) 94 12/15/17 04:00 96.7 143 20 141/69 (93) 93 12/15/17 04:00 81 12/15/17 03:33 92 12/15/17 00:00 98.7 71 28 147/64 (91) 93 12/15/17 00:00 72 12/14/17 21:48 98 107/58 12/14/17 20:38 97.5 78 16 107/53 (71) 91 12/14/17 20:00 97 12/14/17 20:00 Room Air 12/14/17 16:00 97.9 84 18 169/73 (105) 94 12/14/17 15:35 76 12/14/17 15:26 93 21 12/14/17 12:00 98.8 79 18 118/55 (76) 98 12/14/17 11:48 84 116/66 12/14/17 11:35 79 I/O 12/14/17 12/14/17 12/14/17 12/15/17 12/15/17 12/15/17 07:00 15:00 23:00 07:00 15:00 23:00 Intake Total 240 ml 100 ml 610 ml 304 ml Output Total 200 ml 600 ml Balance 40 ml 100 ml 610 ml -296 ml Intake Oral 240 ml 360 ml IV Total 100 ml 250 ml 304 ml Output Urine Total 200 ml 600 ml # Voids 3 4 # Bowel Movements 0 0 Result Diagram: 12/14/175 12/14/17 0425 Imaging Last Impressions Thoracentesis Ultrasound 12/12/17 0600 Signed Impressions: CONCLUSION: 1. Subtle right thoracentesis with ultrasound guidance as described above. Chest X-Ray 12/12/17 0000 Signed Impressions: CONCLUSION: 1. No pneumothorax status post right thoracentesis. 2. Tiny residual right pleural effusion. 3. Cardiomegaly. 4. Bibasilar atelectasis. 5. Degenerative changes and scoliosis of the thoracolumbar spine. Objective Remarks GENERAL: female sitting up in bed NECK: Trachea midline. No JVD or lymphadenopathy. Supple, nontender, no meningeal signs. CARDIOVASCULAR: Regular rate and rhythm without murmurs, gallops, or rubs. RESPIRATORY: Bilateral wheezes. Diminished breath sounds in the right lower lung with crackles. GASTROINTESTINAL: Abdomen soft, non-tender, nondistended. No hepato-splenomegaly , or palpable masses. No guarding. MUSCULOSKELETAL: 2+ pitting edema of the bilateral lower extremities NEUROLOGICAL: Awake and alert. Cranial nerves II through XII intact. Motor and sensory grossly within normal limits. Normal speech. A/P Assessment and Plan Afib RVR Received digoxin Started on amio gtt per protocol and transition to to PO amio Cardizem PO New onset CHF 2/2 severe aortic stenosis. Severe aortic stenosis BNP 2735 on admission Chest x-ray significant for pulmonary congestion and a right pleural effusion Echo reviewed patient with normal EF however with severe aortic stenosis and mitral regurgitation. Cardiology consulted, appreciate recommendations. CT surgery consulted as well . Candidate for TAVR TAVR workup. [facility] on Sunday am. PFTs. NPO after MN Sunday night Lasix IV changed to PO. Pleural effusion May be secondary to CHF versus malignant effusion as patient with history of esophageal cancer Pulmonary consulted, appreciate recommendations Hypokalemia. Replace K. Monitor closely and replace as need. Pneumonia Chest x-ray shows diffuse interstitial prominence Azithromycin/cefepime Duo nebs Supplemental oxygen as needed Elevated troponin EKG shows sinus rhythm with nonspecific ST changes and no ST segment elevations or depressions, personally reviewed Initial troponin 0.13 ACS rule out pending; serial troponins/EKGs Anemia, iron deficient Ceck FOBT. Check iron studies, ferritin, b12 and folate. Patient dropped 2gm/dL. Start iron sulfate. Patient needs evaluation for anemia prior to plavix/asa. GI consult. Patient refusing any invasive work up at this time Hypertension Continue home medications GERD Continue home Protonix History of esophageal cancer Patient status post chemotherapy and radiation in 2013 Follows with her oncologist as outpatient Hypokalemia Status post p.o. repletion Monitor BMP DVT ppx: Lovenox Discussed with the patient, nurse,Dr Shane cardiology DC plan: Initially planned for TAVR workup. N.p.o. Sunday night after midnight. Plan for cardiac cath on Sunday by Dr. Shane. Possible DC planning after cardiac cath on Sunday. However patient and family () is refusing any invasive work up at this time, decided for hospice evaluation. Johnna Vasquez MD Dec 15, 2017 09:56
--- NOTE | 2017-12-15 10:57 | PD.CONS ---
HPI History of Present Illness This is a 87 year old female hemoglobin was admitted to the hospital on 2017 shortness of breath. According to the record patient was hospitalized and underwent thoracentesis. She had repeat thoracentesis on 12/12/2017 continues to require oxygen per nasal cannula. Patient is a poor historian but is answering some simple questions. Some of the information gathered is from the record. She is also being followed per cardiology for non-surgical aortic stenosis and TAPVR is being considered in the near future. Patient states some mild nausea but no vomiting and does note mild dysphasia worsening over the past 2-3 months. She states she has had a choking sensation 1 time a food chronic dyspepsia to assist 2-3 times a week. Currently patient denies any abdominal pain but does note some constipation worsening over the past few months. She denies any hematemesis or rectal bleeding. Patient's current hemoglobin is she does show with low iron level at 17, TIBC 220, and ferritin level 99. Patient has never been worked her gastroenterology denies any history of EGD or colonoscopy. She also denies history of colon cancer but does state she is treated for esophageal cancer 2012 with radiation and chemotherapy but no surgery. She has been followed per Dr. Marshall. Patient does have mild dyspnea at rest and worsening of exertional dyspnea even with talking. Gastroenterology has been consulted to assist in evaluation of patient 's iron deficiency anemia as well as any possible GI bleed including workup before patient has TAVR. (Wandy Bhatti) PFSH Past Medical History esophageal cancer, recent pleural effusion status post thoracentesis requiring chest tube placement secondary to pneumothorax, hypertension and GERD Past Surgical History Tonsillectomy Port placement (Wandy Bhatti) Coded Allergies: Sulfa (Sulfonamide Antibiotics) (Verified Allergy, Intermediate, 12/11/17) clindamycin (Verified Allergy, Intermediate, 12/11/17) penicillin G (Verified Allergy, Intermediate, 12/11/17) Medications Administered Medications Medications (Trade) Dose Ordered Sig/Tiffany Route PRN Reason Start Time Stop Time Status Last Admin Dose Admin Clonidine (Catapres) 0.1 mg Q4H PRN PO SBP>160, DBP>90 12/11/17 18:15 12/14/17 16:55 Senna/Docusate Sodium (Mary-Colace) 1 tab BID PO 12/11/17 21:00 12/15/17 09:00 Sodium Chloride (NS Flush) 2 ml UNSCH PRN IV FLUSH FLUSH AFTER USING IV ACCESS 12/11/17 18:15 12/13/17 22:35 Sodium Chloride (NS Flush) 2 ml BID IV FLUSH 12/11/17 21:00 12/15/17 08:57 Cefepime HCl 2000 mg/Sodium Chloride 100 ml @ 200 mls/hr Q12H IV 12/12/17 06:00 12/15/17 04:38 Azithromycin 500 mg/Sodium Chloride 250 ml @ 250 mls/hr Q24H IV 12/12/17 20:00 12/14/17 21:48 Albuterol/ Ipratropium (Duoneb Neb) 1 ampule Q6HR NEB INH 12/11/17 22:00 12/15/17 10:31 Guaifenesin (Mucinex Er) 600 mg BID PO 12/11/17 21:00 12/15/17 08:58 Potassium Chloride (KCl) 20 meq Q12HR PO 12/11/17 21:00 12/15/17 08:58 Pravastatin Sodium (Pravachol) 20 mg HS PO 12/11/17 21:00 12/14/17 21:49 Pantoprazole Sodium (Protonix) 40 mg DAILY PO 12/12/17 09:00 12/15/17 08:59 Famotidine (Pepcid) 20 mg DAILY PO 12/12/17 09:00 12/15/17 09:00 Metoprolol Tartrate (Lopressor) 50 mg Q12HR PO 12/12/17 09:00 12/15/17 09:00 Diltiazem HCl (Cardizem) 30 mg Q6H PO 12/13/17 22:00 12/15/17 09:00 Furosemide (Lasix) 20 mg DAILY PO 12/14/17 09:00 12/15/17 09:00 Ferrous Sulfate (Ferrous Sulfate) 325 mg BID PO 12/15/17 09:00 12/15/17 08:57 Amiodarone HCl (Cordarone) 200 mg DAILY PO 12/15/17 09:00 12/15/17 08:57 Family History Mother with CAD No family history of colon cancer Social History Remote history of tobacco. Denies alcohol and illicit drugs. (Wandy Bhatti) Review of Systems Constitutional: COMPLAINS OF: Fatigue Respiratory: COMPLAINS OF: Cough Gastrointestinal: COMPLAINS OF: Constipation, Difficulty Swallowing, Heartburn (Wandy Bhatti) GI Exam Vitals I&O Vital Signs Date Time Temp Pulse Resp B/P (MAP) Pulse Ox O2 Delivery O2 Flow Rate FiO2 12/15/17 10:33 95 Nasal Cannula 2.00 12/15/17 08:00 98.6 85 20 152/65 (94) 94 12/15/17 04:00 96.7 143 20 141/69 (93) 93 12/15/17 04:00 81 12/15/17 03:33 92 12/15/17 00:00 98.7 71 28 147/64 (91) 93 12/15/17 00:00 72 12/14/17 21:48 98 107/58 12/14/17 20:38 97.5 78 16 107/53 (71) 91 12/14/17 20:00 97 12/14/17 20:00 Room Air 12/14/17 16:00 97.9 84 18 169/73 (105) 94 12/14/17 15:35 76 12/14/17 15:26 93 21 12/14/17 12:00 98.8 79 18 118/55 (76) 98 12/14/17 11:48 84 116/66 12/14/17 11:35 79 I/O 12/14/17 12/14/17 12/14/17 12/15/17 12/15/17 12/15/17 07:00 15:00 23:00 07:00 15:00 23:00 Intake Total 240 ml 100 ml 610 ml 304 ml Output Total 200 ml 600 ml Balance 40 ml 100 ml 610 ml -296 ml Intake Oral 240 ml 360 ml IV Total 100 ml 250 ml 304 ml Output Urine Total 200 ml 600 ml # Voids 3 4 # Bowel Movements 0 0 Imaging Last Impressions Thoracentesis Ultrasound 12/12/17 0600 Signed Impressions: CONCLUSION: 1. Subtle right thoracentesis with ultrasound guidance as described above. Chest X-Ray 12/12/17 0000 Signed Impressions: CONCLUSION: 1. No pneumothorax status post right thoracentesis. 2. Tiny residual right pleural effusion. 3. Cardiomegaly. 4. Bibasilar atelectasis. 5. Degenerative changes and scoliosis of the thoracolumbar spine. Laboratory Date/Time Source Procedure Growth Status 12/11/17 19:00 Blood Peripheral Aerobic Blood Culture - Preliminary NO GROWTH IN 3 DAYS Resulted 12/11/17 19:00 Blood Peripheral Anaerobic Blood Culture - Preliminary NO GROWTH IN 3 DAYS Resulted 12/12/17 10:30 Fluid Pleural Fluid Fungal Smear - Final NO FUNGAL ELEMENTS SEEN. Resulted 12/12/17 10:30 Fluid Pleural Fluid Fungal Culture Pending Resulted Physical Examination HEENT: Generalized pale, normocephalic; atraumatic; no jaundice. NECK: Supple, CHEST: Diminished breath sounds especially in her bases bilateral CARDIAC: Systolic murmur, regular rate ABDOMEN: Soft, nondistended, no acute tenderness to light palpation no hepatosplenomegaly; bowel sounds are present in all four quadrants. EXTREMITIES: Minimal lower extremity edema. SKIN: no rash; no jaundice. 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 Recent pleural thoracentesis done on 12/12, and patient remains on oxygen per nasal cannula as well as some mild dyspnea even at rest, worsening exertional dyspnea even with talking. Patient does have anemia with hemoglobin 8.5, iron deficiency with low iron level 17 TIBC 220 and ferritin level 99. According to patient stools are brown without melena, no hematemesis. Patient does dyspepsia at least 2-3 times mild dysphasia with prolonged choking sensation over the past 2-3 months. She notes level of dysphasia upper esophagus. She does have a history of esophageal cancer treated per Dr. Marshall in 2012 without surgical intervention but did receive radiation chemotherapy. Gastroenterology was called and patient and evaluate her anemia, as well as any potential for GI bleed before she has TAVR procedure. She will need anticoagulation at that time. Poor historian. PT/ INR 1.1. Patient will need EGD and colonoscopy at some point, but for now we will plan EGD to evaluate for any upper GI bleeding, inflammation, ulcers, and needed medication management. N.p.o. now plan EGD for late pm today. Iron deficiency anemia, rule out GI bleed Dyspepsia 2-3 times a week alleviating factors times Currently denies any melena stools, but notes recent constipation over the past 2-3 months which could be related to medicines versus decreased hydration. And pleural effusions Dysphasia predominantly in the upper esophagus, history of esophageal cancer back in 2012 treated with radiation and chemotherapy nonsurgical per Dr. Marshall, No previous EGD or colonoscopy for family history of colon cancer Plan Diet heart healthy Consent for EGD today late p.m. N.p.o. now PPI IV Antiemetics Carafate Bowel regimen Further recommendations to follow Patient was seen per myself and Dr. Boss, this note was written on his behalf (Wandy Bhatti) Physician Comments Seen and examined with Wandy, discussed with patient and . Will schedule EGD today if possible or tomorrow for clearance. Further recommendations to follow. Thank you for the consult. (Marquez Boss MD) Wandy Bhatti Dec 15, 2017 10:56 Marquez Boss MD Dec 15, 2017 14:09
[2017-12-15] MEDS: IRON SUCROSE INJ 100 MG in SODIUM CHLORIDE 0.9% INJ 100 ML IV SCH (18:12)
[2017-12-15] MEDS: PRAVASTATIN SOD 20 MG TAB PO SCH (21:07)
[2017-12-16] VITALS: PULSE 76
[2017-12-16 00:07] VITALS: BP 129/58; PULSE 105; RESP 18; TEMP 96.6; O2SAT 93
[2017-12-16 04:00] VITALS: BP 138/68; PULSE 85; PULSE 86; RESP 18; TEMP 98.3; O2SAT 92
[2017-12-16] MEDS: DILTIAZEM HCL 30 MG TAB PO SCH ×3 (05:26→15:16)
[2017-12-16 05:59] LABS: AUTOMATED NEUTROPHIL # 7.4 TH/MM3 (1.8-7.7); BASOPHIL # 0.1 TH/MM3 (0-0.2); BASOPHIL % 0.6 % (0.0-2.0); EOSINOPHIL % 0.5 % (0.0-4.0); HEMATOCRIT 27.8 % (35.0-46.0); HEMOGLOBIN 9.4 GM/DL (11.6-15.3); LYMPH % 11.5 % (9.0-44.0); LYMPHOCYTE # 1.1 TH/MM3 (1.0-4.8); MEAN CELL VOLUME 88.7 FL (80.0-100.0); MEAN CORPUSCULAR HEMOGLOBIN 29.9 PG (27.0-34.0); MEAN CORPUSCULAR HGB CONC 33.7 % (32.0-36.0); MEAN PLATELET VOLUME 8.3 FL (7.0-11.0); MONO % 7.6 % (0.0-8.0); MONOCYTE # 0.7 TH/MM3 (0-0.9); NEUT % 79.8 % (16.0-70.0); PLATELET COUNT 249 TH/MM3 (150-450); RED BLOOD COUNT 3.14 MIL/MM3 (4.00-5.30); RED CELL DISTRIBUTION WIDTH 15.7 % (11.6-17.2); WHITE BLOOD COUNT 9.3 TH/MM3 (4.0-11.0)
[2017-12-16 06:25] LABS: CALCIUM 8.9 MG/DL (8.5-10.1); CREATININE 0.64 MG/DL (0.50-1.00); MAGNESIUM 1.9 MG/DL (1.5-2.5)
[2017-12-16 08:00] VITALS: BP 167/90; PULSE 91; PULSE 96; RESP 22; TEMP 98.6; O2SAT 96
--- NOTE | 2017-12-16 08:03 | PD.CARD.PN ---
Subjective Subjective Remarks feeling well without complaint. No chest pain, sob or palpitations. no abdominal discomfort. paroxysms of afib overnight, asymptomatic (Roxana Swanson) Objective Medications Current Medications Medications (Trade) Dose Ordered Sig/Tiffany Route Start Time Stop Time Status Last Admin (Catapres) 0.1 mg Q4H PRN PO 12/11/17 18:15 12/14/17 16:55 (Tylenol) 650 mg Q4H PRN PO 12/11/17 18:15 (Zofran Odt) 4 mg Q4H PRN PO 12/11/17 18:45 (Reglan Inj) 5 mg Q6H PRN IV PUSH 12/11/17 18:15 (Tylenol) 650 mg Q6H PRN PO 12/11/17 18:15 (Percocet 5-325 Mg) 1 tab Q6H PRN PO 12/11/17 18:15 (Percocet 10-325 Mg) 1 tab Q6H PRN PO 12/11/17 18:15 12/15/17 18:13 (Narcan Inj) 0.4 mg UNSCH PRN IV PUSH 12/11/17 18:15 (Mary-Colace) 1 tab BID PO 12/11/17 21:00 12/15/17 21:07 (Milk Of Magnesia Liq) 30 ml Q12H PRN PO 12/11/17 18:15 (Senokot) 17.2 mg Q12H PRN PO 12/11/17 18:15 (Dulcolax Supp) 10 mg DAILY PRN RECTAL 12/11/17 18:15 (Lactulose Liq) 30 ml DAILY PRN PO 12/11/17 18:15 (NS Flush) 2 ml UNSCH PRN IV FLUSH 12/11/17 18:15 12/13/17 22:35 (NS Flush) 2 ml BID IV FLUSH 12/11/17 21:00 12/15/17 21:07 (Duoneb Neb) 1 ampule Q4HR NEB PRN INH 12/11/17 18:15 (Mucinex Er) 600 mg BID PO 12/11/17 21:00 12/15/17 21:07 (KCl) 20 meq Q12HR PO 12/11/17 21:00 12/15/17 21:07 (Pravachol) 20 mg HS PO 12/11/17 21:00 12/15/17 21:07 (Protonix) 40 mg DAILY PO 12/12/17 09:00 12/15/17 08:59 (Metamucil Smooth Texture Sf/ Gf Pkt) 1 pkt TID PRN PO 12/11/17 20:30 (Pepcid) 20 mg DAILY PO 12/12/17 09:00 12/15/17 09:00 (Lopressor) 50 mg Q12HR PO 12/12/17 09:00 12/15/17 21:07 (Cardizem) 30 mg Q6H PO 12/13/17 22:00 12/16/17 05:26 (NS Flush) 2 ml UNSCH PRN IVF 12/14/17 08:45 (Lasix) 20 mg DAILY PO 12/14/17 09:00 12/15/17 09:00 (Ferrous Sulfate) 325 mg BID PO 12/15/17 09:00 12/15/17 21:07 (Cordarone) 200 mg DAILY PO 12/15/17 09:00 12/15/17 08:57 Iron Sucrose 100 mg/Sodium Chloride 105 ml @ 105 mls/hr DAILY IV 12/15/17 18:00 12/17/17 09:59 12/15/17 18:12 Vital Signs / I&O Vital Signs Date Time Temp Pulse Resp B/P (MAP) Pulse Ox O2 Delivery O2 Flow Rate FiO2 12/16/17 04:00 98.3 86 18 138/68 (91) 92 12/16/17 04:00 Room Air 2.00 21 12/16/17 04:00 85 12/16/17 00:07 96.6 105 18 129/58 (81) 93 12/16/17 00:00 76 12/16/17 00:00 Room Air 2.00 21 12/15/17 20:30 97 Nasal Cannula 2.00 12/15/17 20:00 96.8 118 20 142/67 (92) 94 12/15/17 20:00 Room Air 2.00 21 12/15/17 20:00 120 12/15/17 16:00 90 12/15/17 16:00 97.9 110 20 176/72 (106) 93 12/15/17 12:00 81 12/15/17 12:00 97.9 83 20 152/74 (100) 97 12/15/17 10:33 95 Nasal Cannula 2.00 12/15/17 08:00 90 12/15/17 08:00 Room Air 2.00 21 12/15/17 08:00 98.6 85 20 152/65 (94) 94 I/O 12/15/17 12/15/17 12/15/17 12/16/17 12/16/17 12/16/17 07:00 15:00 23:00 07:00 15:00 23:00 Intake Total 304 ml 60 ml 240 ml Output Total 600 ml Balance -296 ml 60 ml 240 ml Intake Oral 240 ml IV Total 304 ml 60 ml Output Urine Total 600 ml # Voids 2 # Bowel Movements 0 Physical Exam GENERAL: SKIN: Warm and dry. HEAD: Atraumatic. Normocephalic. EYES: Pupils equal and round. No scleral icterus. ENT: No nasal bleeding or discharge. NECK: Trachea midline. No JVD. CARDIOVASCULAR: Regular rate and rhythm. III/ +systolic murmur RESPIRATORY: No accessory muscle use. Clear to auscultation. Breath sounds equal bilaterally. GASTROINTESTINAL: Abdomen soft, non-tender, nondistended. Hepatic and splenic margins not palpable. MUSCULOSKELETAL: Extremities without clubbing, cyanosis, or edema. No obvious deformities. NEUROLOGICAL: Awake and alert. No obvious cranial nerve deficits.. Normal speech. PSYCHIATRIC: Appropriate mood and affect; insight and judgment normal. Laboratory Laboratory Tests Test 12/16/17 05:30 White Blood Count 9.3 TH/MM3 Red Blood Count 3.14 MIL/MM3 Hemoglobin 9.4 GM/DL Hematocrit 27.8 % Mean Corpuscular Volume 88.7 FL Mean Corpuscular Hemoglobin 29.9 PG Mean Corpuscular Hemoglobin Concent 33.7 % Red Cell Distribution Width 15.7 % Platelet Count 249 TH/MM3 Mean Platelet Volume 8.3 FL Neutrophils (%) (Auto) 79.8 % Lymphocytes (%) (Auto) 11.5 % Monocytes (%) (Auto) 7.6 % Eosinophils (%) (Auto) 0.5 % Basophils (%) (Auto) 0.6 % Neutrophils # (Auto) 7.4 TH/MM3 Lymphocytes # (Auto) 1.1 TH/MM3 Monocytes # (Auto) 0.7 TH/MM3 Eosinophils # (Auto) 0.0 TH/MM3 Basophils # (Auto) 0.1 TH/MM3 CBC Comment DIFF FINAL Differential Comment Blood Urea Nitrogen 17 MG/DL Creatinine 0.64 MG/DL Random Glucose 98 MG/DL Calcium Level 8.9 MG/DL Magnesium Level 1.9 MG/DL Sodium Level 140 MEQ/L Potassium Level 4.0 MEQ/L Chloride Level 106 MEQ/L Carbon Dioxide Level 26.0 MEQ/L Anion Gap 8 MEQ/L Estimat Glomerular Filtration Rate 88 ML/MIN (Roxana Swanson) Assessment and Plan Problem List: (1) New onset of congestive heart failure ICD Codes: I50.9 - Heart failure, unspecified Status: Acute (2) Aortic stenosis ICD Codes: I35.0 - Nonrheumatic aortic (valve) stenosis Status: Acute Assessment and Plan 87-year-old female with a past medical history of HTN, HLD, GERD, pleural effusion with recent thoracentesis, history of esophageal cancer status post radiation in 2012 who presented for shortness of breath Acute diastolic CHF secondary to severe aortic stenosis- diuresing well. electrolytes stable. initially LR tentatively planned for Sunday for TAVR workup but patient and family wish to hold on any invasive procedure. proceeding with palliative care New onset A. fib with RVR: currently in NSR with paroxysms of afib overnight, asymptomatic. cont amio, ccb, bb= EKG checked yesterday with normal QTc anemia- iron deficiency, Hgb improved with po ferrous sulfate. GI recommends EGD but patient wishes to hold off on procedures. PNA - antibiotic (Roxana Swanson) Assessment and Plan = Patient seen and examined. she is dyspneic and otherwise feels fatigued. She reports she and her family discussed TAVR and have declined. I discussed that this would be a terminal diagnosis left untreated. She wishes for hospice consult at this time. (Danny Castorena DO) Problem Qualifiers (1) Aortic stenosis: Qualified Codes: I35.0 - Nonrheumatic aortic (valve) stenosis Roxana Swanson Dec 16, 2017 08:03 Danny Castorena DO Dec 16, 2017 09:26
[2017-12-16] MEDS: METOPROLOL TARTRATE 50 MG TAB PO SCH (08:28)
[2017-12-16] MEDS: guaiFENesin E.R. 600 MG TAB PO SCH (08:28)
[2017-12-16] MEDS: PANTOPRAZOLE SOD 40 MG DELAYED RELEASE TAB PO SCH (08:28)
[2017-12-16] MEDS: FAMOTIDINE 20 MG TAB PO SCH (08:28)
[2017-12-16] MEDS: FUROSEMIDE 20 MG TAB PO SCH (08:28)
[2017-12-16] MEDS: DOCUSATE SODIUM 50 MG/SENNA 8.6 MG TAB PO SCH (08:28)
[2017-12-16] MEDS: AMIODARONE 200 MG TAB PO SCH (08:28)
[2017-12-16] MEDS: FERROUS SULFATE 325 MG (65 MG ELEMENTAL IRON) TAB PO SCH (08:29)
[2017-12-16] MEDS: SODIUM CHLORIDE 0.9% FLUSH 10 ML FLUSH IV FLUSH SCH (08:29)
[2017-12-16] MEDS: POTASSIUM CHLORIDE 20 MEQ CONTROLLED RELEASE TAB PO SCH (08:29)
[2017-12-16] MEDS: IRON SUCROSE INJ 100 MG in SODIUM CHLORIDE 0.9% INJ 100 ML IV SCH (08:36)
--- NOTE | 2017-12-16 09:53 | HHI.PR ---
Subjective Remarks Shortness of breath. No chest pain. No nausea vomiting. Family at bedside her . Decided for hospice. Hospice. Patient is discharge to hospice in deteriorating condition Objective Vitals Vital Signs Date Time Temp Pulse Resp B/P (MAP) Pulse Ox O2 Delivery O2 Flow Rate FiO2 12/16/17 08:00 98.6 96 22 167/90 (115) 96 12/16/17 04:00 98.3 86 18 138/68 (91) 92 12/16/17 04:00 Room Air 2.00 21 12/16/17 04:00 85 12/16/17 00:07 96.6 105 18 129/58 (81) 93 12/16/17 00:00 76 12/16/17 00:00 Room Air 2.00 21 12/15/17 20:30 97 Nasal Cannula 2.00 12/15/17 20:00 96.8 118 20 142/67 (92) 94 12/15/17 20:00 Room Air 2.00 21 12/15/17 20:00 120 12/15/17 16:00 90 12/15/17 16:00 97.9 110 20 176/72 (106) 93 12/15/17 12:00 81 12/15/17 12:00 97.9 83 20 152/74 (100) 97 12/15/17 10:33 95 Nasal Cannula 2.00 I/O 12/15/17 12/15/17 12/15/17 12/16/17 12/16/17 12/16/17 07:00 15:00 23:00 07:00 15:00 23:00 Intake Total 304 ml 60 ml 240 ml Output Total 600 ml Balance -296 ml 60 ml 240 ml Intake Oral 240 ml IV Total 304 ml 60 ml Output Urine Total 600 ml # Voids 2 # Bowel Movements 0 Result Diagram: 12/16/17 0530 12/16/17 0530 Imaging Last Impressions Thoracentesis Ultrasound 12/12/17 0600 Signed Impressions: CONCLUSION: 1. Subtle right thoracentesis with ultrasound guidance as described above. Chest X-Ray 12/12/17 0000 Signed Impressions: CONCLUSION: 1. No pneumothorax status post right thoracentesis. 2. Tiny residual right pleural effusion. 3. Cardiomegaly. 4. Bibasilar atelectasis. 5. Degenerative changes and scoliosis of the thoracolumbar spine. Objective Remarks GENERAL: female sitting up in bed NECK: Trachea midline. No JVD or lymphadenopathy. Supple, nontender, no meningeal signs. CARDIOVASCULAR: Irregular rate and rhythm. Holosystolic murmur. RESPIRATORY: Bilateral wheezes. Diminished breath sounds in the right lower lung with crackles. GASTROINTESTINAL: Abdomen soft, non-tender, nondistended. No hepato-splenomegaly , or palpable masses. No guarding. MUSCULOSKELETAL: 2+ pitting edema of the bilateral lower extremities NEUROLOGICAL: Awake and alert. Cranial nerves II through XII intact. Motor and sensory grossly within normal limits. Normal speech. A/P Assessment and Plan Afib RVR Received digoxin Received amio gtt per protocol and transition to to PO amio Cardizem PO, labetalol New onset CHF 2/2 severe aortic stenosis. Severe aortic stenosis BNP 2735 on admission Chest x-ray significant for pulmonary congestion and a right pleural effusion Echo reviewed patient with normal EF however with severe aortic stenosis and mitral regurgitation. Cardiology consulted, appreciate recommendations. CT surgery consulted as well . Refused TAVR Lasix IV changed to PO. Pleural effusion May be secondary to CHF versus malignant effusion as patient with history of esophageal cancer Pulmonary consulted, appreciate recommendations Hypokalemia. Replace K. Monitor closely and replace as need. Pneumonia Chest x-ray shows diffuse interstitial prominence Azithromycin/cefepime Duo nebs Supplemental oxygen as needed Elevated troponin EKG shows sinus rhythm with nonspecific ST changes and no ST segment elevations or depressions, personally reviewed Initial troponin 0.13 ACS rule out pending; serial troponins/EKGs Anemia, iron deficient Ceck FOBT. Check iron studies, ferritin, b12 and folate. Patient dropped 2gm/dL. Start iron sulfate. Patient needs evaluation for anemia prior to plavix/asa. GI consult. Patient refusing any invasive work up at this time Hypertension Continue home medications GERD Continue home Protonix History of esophageal cancer Patient status post chemotherapy and radiation in 2012 Follows with her oncologist as outpatient Hypokalemia Status post p.o. repletion Monitor BMP DVT ppx: Lovenox Discussed with the patient, nurse,Dr Shane cardiology DC plan: Initially planned for TAVR workup. N.p.o. Sunday night after midnight. Plan for cardiac cath on Sunday by Dr. Shane. Possible DC planning after cardiac cath on Sunday. However patient and family () is refusing any invasive work up at this time, decided for hospice evaluation. Was evaluated by hospice. Patient and the family has been decided for discharge to hospice. Discussed with hospice and concerns to hospice today. Expect deterioration Johnna Vasquez MD Dec 16, 2017 09:53
[2017-12-16 12:00] VITALS: BP 147/79; PULSE 75; PULSE 95; RESP 22; TEMP 98.3; O2SAT 96
[2017-12-16 12:05] VITALS: O2SAT 94
--- NOTE | 2017-12-16 13:32 | EKG ---
Date Performed: 12/15/2017 Time Performed: 13:42:24 PTAGE: 87 years EKG: Sinus rhythm BORDERLINE LEFT AXIS DEVIATION NONSPECIFIC ST & T-WAVE ABNORMALITY BORDERLINE ECG PREVIOUS TRACING 12/12/17 Sinus rhythm replaces atrial fibrillation, but otherwise largely unch anged. DOCTOR: Max Moreno Interpretating Date/Time 12/16/2017 13:32:42
--- NOTE | 2017-12-16 13:54 | HHI.GIFU ---
Subjective Remarks Refusing any intervention and no GI symptoms. Objective Vitals I&O Vital Signs Date Time Temp Pulse Resp B/P (MAP) Pulse Ox O2 Delivery O2 Flow Rate FiO2 12/16/17 12:00 75 12/16/17 08:00 98.6 96 22 167/90 (115) 96 12/16/17 08:00 91 12/16/17 08:00 Room Air 2.00 21 12/16/17 04:00 98.3 86 18 138/68 (91) 92 12/16/17 04:00 Room Air 2.00 21 12/16/17 04:00 85 12/16/17 00:07 96.6 105 18 129/58 (81) 93 12/16/17 00:00 76 12/16/17 00:00 Room Air 2.00 21 12/15/17 20:30 97 Nasal Cannula 2.00 12/15/17 20:00 96.8 118 20 142/67 (92) 94 12/15/17 20:00 Room Air 2.00 21 12/15/17 20:00 120 12/15/17 16:00 90 12/15/17 16:00 97.9 110 20 176/72 (106) 93 I/O 12/15/17 12/15/17 12/15/17 12/16/17 12/16/17 12/16/17 07:00 15:00 23:00 07:00 15:00 23:00 Intake Total 304 ml 60 ml 240 ml Output Total 600 ml Balance -296 ml 60 ml 240 ml Intake Oral 240 ml IV Total 304 ml 60 ml Output Urine Total 600 ml # Voids 2 # Bowel Movements 0 Laboratory Laboratory Tests Test 12/16/17 05:30 White Blood Count 9.3 Red Blood Count 3.14 Hemoglobin 9.4 Hematocrit 27.8 Mean Corpuscular Volume 88.7 Mean Corpuscular Hemoglobin 29.9 Mean Corpuscular Hemoglobin Concent 33.7 Red Cell Distribution Width 15.7 Platelet Count 249 Mean Platelet Volume 8.3 Neutrophils (%) (Auto) 79.8 Lymphocytes (%) (Auto) 11.5 Monocytes (%) (Auto) 7.6 Eosinophils (%) (Auto) 0.5 Basophils (%) (Auto) 0.6 Neutrophils # (Auto) 7.4 Lymphocytes # (Auto) 1.1 Monocytes # (Auto) 0.7 Eosinophils # (Auto) 0.0 Basophils # (Auto) 0.1 CBC Comment DIFF FINAL Differential Comment Blood Urea Nitrogen 17 Creatinine 0.64 Random Glucose 98 Calcium Level 8.9 Magnesium Level 1.9 Sodium Level 140 Potassium Level 4.0 Chloride Level 106 Carbon Dioxide Level 26.0 Anion Gap 8 Estimat Glomerular Filtration Rate 88 Date/Time Source Procedure Growth Status 12/11/17 19:00 Blood Peripheral Aerobic Blood Culture - Final NO GROWTH IN 5 DAYS Complete 12/11/17 19:00 Blood Peripheral Anaerobic Blood Culture - Final NO GROWTH IN 5 DAYS Complete 12/12/17 10:30 Fluid Pleural Fluid Fungal Smear - Final NO FUNGAL ELEMENTS SEEN. Resulted 12/12/17 10:30 Fluid Pleural Fluid Fungal Culture Pending Resulted Physical Exam HEENT: Pupils round and reactive to light; normocephalic; atraumatic; no jaundice. Throat is clear. NECK: Neck is supple, no JVD, no lymphadenopathy. CHEST: Chest is clear to auscultation and percussion. CARDIAC: Regular rate and rhythm with no murmur gallop or rubs. ABDOMEN: Soft, nondistended, nontender; no hepatosplenomegaly; bowel sounds are present in all four quadrants. EXTREMITIES: No clubbing, cyanosis, or edema. SKIN: Normal; no rash; no jaundice. GENERAL PRACTITIONER: No focal deficits; alert and oriented times three. Assessment and Plan Plan Iron deficiency anemia, rule out GI bleed Dyspepsia 2-3 times a week alleviating factors times Currently denies any melena stools, but notes recent constipation over the past 2-3 months Dysphasia predominantly in the upper esophagus, history of esophageal cancer back in 2012 treated with radiation and chemotherapy nonsurgical per Dr. Marshall, Plan Diet as tolerated Symptomatic treatment Refusing any intervention and refused to sign EGD consent yesterday Will sign off for now, please notify if needed again. Marquez Boss MD Dec 16, 2017 13:54
[2017-12-16] MEDS ORDERED: DILT31TA PO (14:06)
[2017-12-16] MEDS ORDERED: FERR325T20 PO (14:06)
[2017-12-16] MEDS ORDERED: METO-309 PO (14:06)
--- NOTE | 2017-12-16 14:06 | HHI.DS ---
Discharge Summary Admission Date Dec 11, 2017 at 18:19 Discharge Date: Dec 16, 2017 Admitting Diagnosis New onset congestive heart failure, hypoxia, pleural effusion (1) Pneumothorax ICD Code: J93.9 - Pneumothorax, unspecified (2) HTN (hypertension) ICD Code: I10 - Essential (primary) hypertension (3) HLD (hyperlipidemia) ICD Code: E78.5 - Hyperlipidemia, unspecified (4) Hypoxia ICD Code: R09.02 - Hypoxemia Status: Acute (5) New onset of congestive heart failure ICD Code: I50.9 - Heart failure, unspecified Status: Acute (6) Aortic stenosis ICD Code: I35.0 - Nonrheumatic aortic (valve) stenosis Status: Acute (7) Diastolic heart failure ICD Code: I50.30 - Unspecified diastolic (congestive) heart failure Status: Acute Procedures thoracentesis Brief History - From Admission 87-year-old female with a past medical history significant for esophageal cancer , recent pleural effusion status post thoracentesis requiring chest tube placement secondary to pneumothorax, hypertension and GERD presents the emergency department for the evaluation of a 25 pound weight loss and increasing shortness of breath. The patient reports she has had anorexia and suffered a 25 pound weight loss over the past 1.5 months. She states she has had increasingly worsening shortness of breath 2 weeks and accompanying fatigue /weakness. She was seen by her PCP 1.5 weeks ago but was not given any new diagnosis. She has had new bilateral lower extremity edema over the past 2 weeks. She denies any chest pain. No abdominal pain. No nausea/vomiting/ diarrhea. No lateralizing signs/symptoms. CBC/BMP: 12/16/17 0530 12/16/17 0530 Significant Findings Laboratory Tests Test 12/14/17 04:25 12/16/17 05:30 Red Blood Count 2.80 MIL/MM3 (4.00-5.30) 3.14 MIL/MM3 (4.00-5.30) Hemoglobin 8.5 GM/DL (11.6-15.3) 9.4 GM/DL (11.6-15.3) Hematocrit 24.7 % (35.0-46.0) 27.8 % (35.0-46.0) Neutrophils (%) (Auto) 73.8 % (16.0-70.0) 79.8 % (16.0-70.0) Monocytes (%) (Auto) 13.0 % (0.0-8.0) Lymphocytes # (Auto) 0.9 TH/MM3 (1.0-4.8) Monocytes # (Auto) 1.0 TH/MM3 (0-0.9) Blood Urea Nitrogen 21 MG/DL (7-18) Random Glucose 119 MG/DL (74-106) Calcium Level 8.4 MG/DL (8.5-10.1) Potassium Level 3.3 MEQ/L (3.5-5.1) Estimat Glomerular Filtration Rate 78 ML/MIN (>89) 88 ML/MIN (>89) Iron Level 17 MCG/DL (50-170) Total Iron Binding Capacity 220 MCG/DL (250-450) Percent Iron Saturation 7.7 % (20-50) Imaging Last Impressions Thoracentesis Ultrasound 12/12/17 0600 Signed Impressions: CONCLUSION: 1. Subtle right thoracentesis with ultrasound guidance as described above. Chest X-Ray 12/12/17 0000 Signed Impressions: CONCLUSION: 1. No pneumothorax status post right thoracentesis. 2. Tiny residual right pleural effusion. 3. Cardiomegaly. 4. Bibasilar atelectasis. 5. Degenerative changes and scoliosis of the thoracolumbar spine. PE at Discharge GENERAL: female sitting up in bed NECK: Trachea midline. No JVD or lymphadenopathy. Supple, nontender, no meningeal signs. CARDIOVASCULAR: Regular rate and rhythm without murmurs, gallops, or rubs. RESPIRATORY: Bilateral wheezes. Diminished breath sounds in the right lower lung with crackles. GASTROINTESTINAL: Abdomen soft, non-tender, nondistended. No hepato-splenomegaly , or palpable masses. No guarding. MUSCULOSKELETAL: 2+ pitting edema of the bilateral lower extremities NEUROLOGICAL: Awake and alert. Cranial nerves II through XII intact. Motor and sensory grossly within normal limits. Normal speech. Hospital Course Afib RVR Received digoxin Received amio gtt per protocol and transition to to PO amio Cardizem PO, labetalol New onset CHF 2/2 severe aortic stenosis. Severe aortic stenosis BNP 2735 on admission Chest x-ray significant for pulmonary congestion and a right pleural effusion Echo reviewed patient with normal EF however with severe aortic stenosis and mitral regurgitation. Cardiology consulted, appreciate recommendations. CT surgery consulted as well . Refused TAVR Lasix IV changed to PO. Pleural effusion May be secondary to CHF versus malignant effusion as patient with history of esophageal cancer Pulmonary consulted, appreciate recommendations Hypokalemia. Replace K. Monitor closely and replace as need. Pneumonia Chest x-ray shows diffuse interstitial prominence Azithromycin/cefepime Duo nebs Supplemental oxygen as needed Elevated troponin EKG shows sinus rhythm with nonspecific ST changes and no ST segment elevations or depressions, personally reviewed Initial troponin 0.13 ACS rule out pending; serial troponins/EKGs Anemia, iron deficient Ceck FOBT. Check iron studies, ferritin, b12 and folate. Patient dropped 2gm/dL. Start iron sulfate. Patient needs evaluation for anemia prior to plavix/asa. GI consult. Patient refusing any invasive work up at this time Hypertension Continue home medications GERD Continue home Protonix History of esophageal cancer Patient status post chemotherapy and radiation in 2012 Follows with her oncologist as outpatient Hypokalemia Status post p.o. repletion Monitor BMP DVT ppx: Lovenox Discussed with the patient, nurse,Dr Shane cardiology DC plan: Initially planned for TAVR workup. N.p.o. Sunday night after midnight. Plan for cardiac cath on Sunday by Dr. Shane. Possible DC planning after cardiac cath on Sunday. However patient and family () is refusing any invasive work up at this time, decided for hospice evaluation. Was evaluated by hospice. Patient and the family has been decided for discharge to hospice. Discussed with hospice and concerns to hospice today. Expect deterioration Pt Condition on Discharge: Guarded Discharge Disposition: Hospice/Med Facility Discharge Time: > 30 minutes Discharge Instructions DIET: Follow Instructions for: Heart Healthy Diet Activities you can perform: Regular-No Restrictions New Medications: Diltiazem (Cardizem) 30 Mg Tab 30 MG PO Q6H for Blood Pressure Management, #30 TAB Ferrous Sulfate (Ferosul) 325 Mg (65 Mg Iron) Tablet 325 MG PO BID for anemia, #30 TAB Metoprolol Tartrate (Lopressor) 50 Mg Tab 50 MG PO Q12HR for Blood Pressure Management, #60 TAB Continued Medications: Lisinopril-Hctz (Lisinopril-Hctz) 10-12.5 Mg Tab 1 TAB PO DAILY for Blood Pressure Management, #30 TAB 0 Refills Lovastatin (Lovastatin) 20 Mg Tab 20 MG PO HS for Cholesterol Management, #30 TAB 0 Refills Pantoprazole (Pantoprazole) 40 Mg Tab 40 MG PO DAILY for Reflux, #30 TAB 0 Refills Psyllium Powder (Metamucil Original Texture) 3.4 Gram/7 Gram Pow 1 SCOOP PO TID PRN for CONSTIPATION, CONTAINER 0 Refills 1 rounded TEASPOON in 8 oz of liquid at the first sign of irregularity. Ranitidine (Zantac) 150 Mg Tab 150 MG PO DAILY for Reduce Stomach Acid, #30 TAB 0 Refills Verapamil ER 24 HR (Verapamil ER 24 HR) 240 Mg Tab 240 MG PO DAILY, #30 TAB 0 Refills Discontinued Medications: Atenolol (Atenolol) 25 Mg Tab 25 MG PO BID for Blood Pressure Management, #60 TAB 0 Refills Johnna Vasquez MD Dec 16, 2017 14:06
== END 2017-12-16 16:19 | disposition hospice, inpatient (51) | DRG 291 ==
LOC: NEPC 15:41 → NEDA 18:19 → N04B 19:22
PROVIDERS: ADMIT Hospitalist; ATTEND Hospitalist
PROC: 0W993ZZ Drainage of Right Pleural Cavity, Percutaneous Approach (ICD-10-PCS; principal; 2017-12-12)
DX: I11.0 Hypertensive heart disease with heart failure (principal); J18.9 Pneumonia, unspecified organism; R64 Cachexia; J91.8 Pleural effusion in other conditions classified elsewhere; I08.3 Combined rheumatic disorders of mitral, aortic and tricuspid valves; I48.0 Paroxysmal atrial fibrillation; R54 Age-related physical debility; R13.10 Dysphagia, unspecified; Z68.1 Body mass index [BMI] 19.9 or less, adult; I50.33 Acute on chronic diastolic (congestive) heart failure; E78.5 Hyperlipidemia, unspecified; K21.9 Gastro-esophageal reflux disease without esophagitis; E87.6 Hypokalemia; K59.00 Constipation, unspecified; D50.9 Iron deficiency anemia, unspecified; R09.02 Hypoxemia; R94.31 Abnormal electrocardiogram [ECG] [EKG]; R74.8 Abnormal levels of other serum enzymes; M19.90 Unspecified osteoarthritis, unspecified site; F32.9 Major depressive disorder, single episode, unspecified; F41.9 Anxiety disorder, unspecified; Z51.5 Encounter for palliative care; Z82.49 Family history of ischemic heart disease and other diseases of the circulatory system; Z85.01 Personal history of malignant neoplasm of esophagus; Z87.891 Personal history of nicotine dependence; Z88.0 Allergy status to penicillin; Z88.1 Allergy status to other antibiotic agents; Z88.2 Allergy status to sulfonamides; Z92.21 Personal history of antineoplastic chemotherapy; Z92.3 Personal history of irradiation
CPT/HCPCS: 32555; 71045; 71046; 80048; 80053; 82150; 82550; 82607; 82728; 82746; 82945; 83036; 83540; 83550; 83615; 83735; 83880; 83986; 84100; 84157; 84439; 84443; 84484; 85025; 85610; 85730; 87015; 87040; 87070; 87102; 87116; 87205; 87206; 88112; 89051; 93005; 93306; 94150; 94640; 94664; 96374; C1729; J0282; J0456; J0692; J1160; J1650; J1756; J1940; J7050